=== PATIENT | male | born 1935 | race Hispanic/Latino ===

== ENCOUNTER 2019-11-13 05:29 | Inpatient (IN) | payer OTHER ==
[2019-11-13] MEDS ORDERED: NA CHLORIDE 0.9% 2,000 ML ONE (05:47)
[2019-11-13 05:56] LABS: Arterial Blood Carboxyhemoglob 1.5 % (0-1.5); Blood Gas Oxyhemoglobin 75.1 % (94-97); Blood O2 Saturation 76.9 % (92-98.5)
[2019-11-13 06:01] LABS: Absolute Lymphocytes (CBC) 1.4 K/uL (0.7-4.9); Basophils % 0.4 % (0-1.3); Hematocrit 32.9 % (39.6-49.0); Lymphocytes % 10.4 % (15.3-44.8); MPV 8.8 fL (7.6-11.3); RBC Red Blood Cell Count 4.02 M/uL (4.33-5.43)
[2019-11-13 06:04] LABS: Protime INR 2.31
[2019-11-13] MEDS ORDERED: PIPERACIL/TAZO 4.5 GM VIAL IV ONE (06:15)
[2019-11-13] MEDS ORDERED: CIPROFLOXACIN 400mg IV 400 MG/200 ML BAG IV ONE (06:16)
[2019-11-13] MEDS ORDERED: NA CHLORIDE 0.9% 100 ML IV ONE (06:16)
[2019-11-13] MEDS ORDERED: dilTIAZem HCL 25 MG/5 ML VIAL IV ONE (06:16)
[2019-11-13 06:26] LABS: ALT/SGPT 20 U/L (12-78); AST/SGOT 23 U/L (15-37); Albumin 2.9 g/dL (3.4-5.0); Alkaline Phosphatase 147 U/L (45-117); BUN Blood Urea Nitrogen 77 mg/dL (7-18); Bicarbonate 21 mmol/L (21-32); Bilirubin Direct 0.2 mg/dL (0-0.2); Bilirubin Total 0.5 mg/dL (0.2-1.0); CKMB Creatine Kinase MB 2.3 ng/mL (0.3-3.6); Creatine Phosphokinase 166 U/L (39-308); Glucose Level 111 mg/dL (74-106); Magnesium 2.6 mg/dL (1.8-2.4); NT PRO-BNP 14088 pg/mL (<450); Potassium 4.5 mmol/L (3.5-5.1); Sodium Level 139 mmol/L (136-145); Troponin (Emerg Dept Use Only) < 0.02 ng/mL (0.0-0.045)
--- NOTE | 2019-11-13 06:44 | EDPHYS ---
Physician Documentation [facility] Name: Derek Ybarra Age: 83 yrs Sex: Male : 1935 Arrival Date: 11/13/2019 Time: 05:32 Bed 6 Private MD: ED Physician Gordy Spence HPI: 11/13 07:16 This 83 yrs old Male presents to ER via EMS with unknown complaint. tw4 07:16 The patient has shortness of breath at rest. Onset: The symptoms/episode began/occurred tw4 yesterday. Duration: The symptoms are continuous. Associated signs and symptoms: The patient has no apparent associated signs or symptoms. Unable to obtain HPI due to baseline dementia. Historical: - Allergies: 05:44 NKDA; rv - Home Meds: 07:04 Toprol XL 50 mg Oral Tb24 1 tab once daily [Active]; apixaban 5 mg Oral 1 tab 2 times lp1 per day for Cerebrovascular disease [Active]; senna 8.6 mg oral tab twice a day [Active]; aspirin 81 mg Oral TbEC 1 tab once daily [Active]; Lipitor 10 mg Oral tab 1 tab nightly for Hypercholesterolemia [Active]; Namenda 10 mg Oral tab 1 tab daily for Moderate to Severe Alzheimer's Type Dementia [Active]; Vimpat 150 mg oral tab 1 tab 2 times per day [Active]; acetaminophen-codeine 300-30 mg Oral tab 1 tab every 8 hours for Pain [Active]; multivitamin Oral tab daily [Active]; loperamide 2 mg Oral tab for Diarrhea [Active]; - PMHx: 05:44 Atrial Fib; CVA; Dementia; hemiplegia; Hyperlipidemia; Seizures; rv - PSHx: 05:44 Unable to obtain; rv - Immunization history:: Adult Immunizations up to date. - Social history:: Smoking status: unknown. - Ebola Screening: : No symptoms or risks identified at this time. ROS: 07:16 Constitutional: Negative for fever, chills, and weight loss, Eyes: Negative for injury, tw4 pain, redness, and discharge, Cardiovascular: Negative for chest pain, palpitations, and edema, Back: Negative for injury and pain, MS/Extremity: Negative for injury and deformity, Skin: Negative for injury, rash, and discoloration, Neuro: Negative for headache, weakness, numbness, tingling, and seizure. 07:16 Respiratory: Positive for cough, dyspnea on exertion, shortness of breath. Exam: 07:16 Constitutional: This is a well developed, well nourished patient who is awake, alert, tw4 and in no acute distress. Head/Face: Normocephalic, atraumatic. Chest/axilla: Normal chest wall appearance and motion. Nontender with no deformity. No lesions are appreciated. Cardiovascular: Regular rate and rhythm with a normal S1 and S2. No gallops, murmurs, or rubs. Normal PMI, no JVD. No pulse deficits. 07:16 Abdomen/GI: Soft, non-tender, with normal bowel sounds. No distension or tympany. No guarding or rebound. No evidence of tenderness throughout. Back: No spinal tenderness. No costovertebral tenderness. Full range of motion. MS/ Extremity: Pulses equal, no cyanosis. Neurovascular intact. Full, normal range of motion. Neuro: Awake and alert, GCS 15, oriented to person, place, time, and situation. Cranial nerves II-XII grossly intact. Motor strength 5/5 in all extremities. Sensory grossly intact. Cerebellar exam normal. Normal gait. 07:16 Cardiovascular: Rate: tachycardic, actual rate is 130 bpm. 07:16 Respiratory: moderate respiratory distress is noted, Respirations: Breath sounds: rhonchi, that are moderate, are heard diffusely. Vital Signs: 05:34 BP 210 / 109; Pulse 117; Resp 32; Temp 97; Pulse Ox 98% 15 lpm ; Weight 68.04 kg; rv 06:10 BP 170 / 86; Pulse 121; Resp 31; Pulse Ox 94% ; vc 06:26 BP 148 / 80; Pulse 100; Resp 30; Pulse Ox 92% on 50% Venturi mask; rv 07:11 BP 140 / 72; Pulse 93; Resp 24; Pulse Ox 99% on Venturi mask; em MDM: 05:42 Patient medically screened. tw4 07:16 Differential diagnosis: Bronchitis CHF exacerbation, pneumonia, Pneumothorax pulmonary tw4 edema, Pulmonary Embolism reactive airway disease. Antibiotic administration: Data reviewed: vital signs, nurses notes. Data interpreted: physician neonatology: rhythm is atrial fibrillation, Pulse oximetry: Interpretation: hypoxia. Counseling: I had a detailed discussion with the patient and/or guardian regarding: the historical points, exam findings, and any diagnostic results supporting the discharge/admit diagnosis, lab results, radiology results. Physician consultation: Adilene Lagos MD regarding admission, patient's condition, and will see patient in ED. 11/13 05:41 Order name: Basic Metabolic Panel; Complete Time: 06:35 11/13 05:41 Order name: CBC with Diff; Complete Time: 06:20 11/13 05:41 Order name: LFT's; Complete Time: 06:44 11/13 05:41 Order name: Magnesium; Complete Time: 06:44 11/13 05:41 Order name: NT PRO-BNP; Complete Time: 06:44 11/13 05:41 Order name: Troponin (emerg Dept Use Only); Complete Time: 06:44 11/13 05:42 Order name: Blood Culture Adult (2) 11/13 05:42 Order name: Ckmb; Complete Time: 06:44 11/13 05:42 Order name: CPK; Complete Time: 06:44 11/13 05:42 Order name: Lactate; Complete Time: 06:20 11/13 05:42 Order name: Procalcitonin; Complete Time: 06:44 11/13 05:42 Order name: Protime (+inr); Complete Time: 06:20 11/13 05:42 Order name: Ptt, Activated; Complete Time: 06:20 11/13 05:42 Order name: Urine Microscopic Only 11/13 05:42 Order name: ABG; Complete Time: 06:20 11/13 06:25 Order name: Glucose, Ancillary Testing; Complete Time: 06:44 EDMS 11/13 07:16 Order name: Urinalysis EDMS 11/13 07:16 Order name: CBC with Automated Diff EDMS 11/13 07:16 Order name: CBC with Automated Diff EDMS 11/13 07:16 Order name: Hemoglobin EDMS 11/13 07:16 Order name: Hemoglobin EDMS 11/13 07:16 Order name: Hemoglobin EDMS 11/13 07:16 Order name: Hemoglobin EDMS 11/13 07:16 Order name: Magnesium EDMS 11/13 07:16 Order name: Magnesium EDMS 11/13 07:17 Order name: Protime (+INR) EDMS 11/13 07:17 Order name: Protime (+INR) EDMS 11/13 07:17 Order name: Thyroid Stimulating Hormone EDMS 11/13 07:17 Order name: Thyroid Stimulating Hormone EDMS 11/13 05:41 Order name: XRAY Chest (1 view); Complete Time: 08:08 11/13 05:41 Order name: EKG; Complete Time: 05:42 11/13 05:41 Order name: Cardiac monitoring; Complete Time: 05:51 11/13 05:41 Order name: EKG - Nurse/Tech; Complete Time: 05:51 11/13 05:41 Order name: IV Saline Lock; Complete Time: 05:51 11/13 05:41 Order name: Labs collected and sent; Complete Time: 05:51 11/13 05:41 Order name: O2 Per Protocol; Complete Time: 05:51 11/13 05:41 Order name: O2 Sat Monitoring; Complete Time: 05:55 11/13 05:42 Order name: Accucheck; Complete Time: 05:50 11/13 05:42 Order name: IV Saline Lock - Large Bore; Complete Time: 05:51 11/13 05:42 Order name: Labs collected and sent; Complete Time: 05:51 11/13 05:42 Order name: O2 Per Protocol; Complete Time: 05:51 11/13 07:16 Order name: CONS Pharmacy Consult EDMS 11/13 07:16 Order name: CONS Physician Consult EDMS 11/13 07:16 Order name: NPO EDMS 11/13 07:16 Order name: EKG Electrocardiogram EDMS 11/13 07:16 Order name: EKG Electrocardiogram EDMS 11/13 07:16 Order name: EKG Electrocardiogram EDMS 11/13 07:16 Order name: EKG Electrocardiogram EDMS 11/13 07:16 Order name: EKG Electrocardiogram EDMS 11/13 07:16 Order name: EKG Electrocardiogram EDMS 11/13 07:16 Order name: EKG Electrocardiogram EDMS 11/13 07:16 Order name: EKG Electrocardiogram EDMS 11/13 07:16 Order name: EKG Electrocardiogram EDMS 11/13 07:16 Order name: EKG Electrocardiogram EDMS 11/13 07:16 Order name: EKG Electrocardiogram [facility] 11/13 08:50 Order name: CT [facility] 11/13 05:42 Order name: O2 Sat Monitoring; Complete Time: 05:51 tw4 EC:10 Rate is 125 beats/min. Rhythm is irregularly irregular, A fib. QRS [place] is Normal. VA tw4 interval is normal. QRS interval is normal. QT interval is normal. No Q waves. T waves are Normal. ST Segment is depressed in leads V4, V5, V6, <1mm. Clinical impression: Atrial Fibrillation. Interpreted by me. Reviewed by me. Administered Medications: 05:51 Drug: NS 0.9% (30 ml/kg) 30 ml/kg Route: IV; Rate: bolus; Site: right antecubital; aa1 06:20 Drug: Cardizem 10 mg Route: IVP; Site: right antecubital; rv 06:23 Drug: Zosyn 4.5 grams Route: IVPB; Infused Over: 60 mins; Site: right antecubital; rv 07:06 Follow up: IV Status: Completed infusion rv 07:06 Drug: Cipro 400 mg Volume: 200 ml; Route: IVPB; Infused Over: 60 mins; Site: right rv antecubital; 08:07 Follow up: Response: No adverse reaction; IV Status: Completed infusion; IV Intake: em 200ml 08:32 Drug: ProTONIX 8 mg/hr Route: IV; Rate: 25 ml/hr; Site: right antecubital; em Disposition: 07:19 Critical Care:. tw4 Disposition: 11/13/19 06:43 Hospitalization ordered by Adielne Lagos for Inpatient Admission. Preliminary diagnosis are Pneumonia due to other specified infectious organisms, Hypoxemia, Acute kidney failure, unspecified. - Bed requested for Intensive Care Unit. - Status is Inpatient Admission. hb - Condition is Stable. - Problem is new. - Symptoms are unchanged. UTI on Admission? No Critical care time excluding procedures: 07:19 Critical care time: Bedside Care: 35 minutes, Consultation: 5 minutes. Total time: 40 tw4 minutes Signatures: Dispatcher [employer] [facility] Briana Gomez RN RN aa1 Jose Maria Deal RN RN em Stephanie Hebert RN RN lp1 Kyara White RN RN Wade López RN RN ja1 Gordy Spence MD MD tw4 Owen Bell, RN RN rv Corrections: (The following items were deleted from the chart) 05:54 05:42 PROTIME (+INR)+[id number].BRZ ordered. [facility] EDMS 07:54 06:43 Hospitalization Ordered by Adilene Lagos MD for Inpatient Admission. Preliminary ja1 diagnosis is Pneumonia due to other specified infectious organisms; Hypoxemia; Acute kidney failure, unspecified. Bed requested for Intensive Care Unit. Status is Inpatient Admission. Condition is Stable. Problem is new. Symptoms are unchanged. UTI on Admission? No. tw4 09:11 07:54 11/13/2019 06:43 Hospitalization Ordered by Adilene Lagos MD for Inpatient hb Admission. Preliminary diagnosis is Pneumonia due to other specified infectious organisms; Hypoxemia; Acute kidney failure, unspecified. Bed requested for Intensive Care Unit. Status is Inpatient Admission. Condition is Stable. Problem is new. Symptoms are unchanged. UTI on Admission? No. ja1
--- NOTE | 2019-11-13 06:44 | ER ---
Nurse's Notes [facility] Name: Derek Ybarra Age: 83 yrs Sex: Male : 1935 Arrival Date: 11/13/2019 Time: 05:32 Bed 6 Private MD: Diagnosis: Pneumonia due to other specified infectious organisms;Hypoxemia;Acute kidney failure, unspecified Presentation: 11/13 05:32 Presenting complaint: EMS states: MERCED IS A RESIDENT IN [place]. HE VOMITED rv SOMEWHERE IN THE MIDDLE OF THE NIGHT. NURSE FOUND COFFEE GROUND STUFF ALL OVER HIM. DENIES ANY HISTORY OF GI BLEEDING. INITIALLY WAS COMPLAINING OF ABDOMINAL PAIN, DENIES ANY PAIN AND NAUSEA OF THE MOMENT. Transition of care: patient was not received from another setting of care. Onset of symptoms was November 13, 2019 at 00:00. Risk Assessment:. Initial Sepsis Screen: Does the patient meet any 2 criteria?. Care prior to arrival: None. 05:32 Method Of Arrival: EMS: [facility] rv 05:32 Acuity: CAMPOS 2 rv 05:50 Risk Assessment: Do you want to hurt yourself or someone else? Patient reports no rv desire to harm self or others. Initial Sepsis Screen: Does the patient have a suspected source of infection? Yes: Productive cough/pneumonia. Initial Sepsis Screen: Does the patient meet any 2 criteria? RR > 20 per min. HR > 90 bpm. Yes. Historical: - Allergies: 05:44 NKDA; rv - Home Meds: 07:04 Toprol XL 50 mg Oral Tb24 1 tab once daily [Active]; apixaban 5 mg Oral 1 tab 2 times lp1 per day for Cerebrovascular disease [Active]; senna 8.6 mg oral tab twice a day [Active]; aspirin 81 mg Oral TbEC 1 tab once daily [Active]; Lipitor 10 mg Oral tab 1 tab nightly for Hypercholesterolemia [Active]; Namenda 10 mg Oral tab 1 tab daily for Moderate to Severe Alzheimer's Type Dementia [Active]; Vimpat 150 mg oral tab 1 tab 2 times per day [Active]; acetaminophen-codeine 300-30 mg Oral tab 1 tab every 8 hours for Pain [Active]; multivitamin Oral tab daily [Active]; loperamide 2 mg Oral tab for Diarrhea [Active]; - PMHx: 05:44 Atrial Fib; CVA; Dementia; hemiplegia; Hyperlipidemia; Seizures; rv - PSHx: 05:44 Unable to obtain; rv - Immunization history:: Adult Immunizations up to date. - Social history:: Smoking status: unknown. - Ebola Screening: : No symptoms or risks identified at this time. Screenin:49 Abuse screen: Denies threats or abuse. Denies injuries from another. Nutritional rv screening: No deficits noted. Tuberculosis screening: No symptoms or risk factors identified. Fall Risk No fall in past 12 months (0 pts). Secondary diagnosis (15 points) impaired mobility, No IV (0 pts). Ambulatory Aid- None/Bed Rest/Nurse Assist (0 pts). Gait- Impaired (20 pts.). Mental Status- Oriented to own ability (0 pts). Total Luciano Fall Scale indicates No Risk (0-24 pts). Assessment: 05:48 General: Appears ill, Behavior is calm, cooperative. Pain: Denies pain. Neuro: Level of rv Consciousness is awake, alert, obeys commands, Oriented to person, place, time, situation. Cardiovascular: Patient's skin is warm and dry. Cardiovascular: Rhythm is sinus tachycardia. Respiratory: Airway is patent Respiratory effort is labored, Breath sounds with crackles bilaterally. GI: Abdomen is round Parent/caregiver reports the patient having vomiting. : No signs and/or symptoms were reported regarding the genitourinary system. Derm: Skin with poor turgor. Musculoskeletal: No signs and/or symptoms reported regarding the musculoskeletal system. 07:10 Reassessment: Patient appears in no apparent distress at this time. Patient and/or em family updated on plan of care and expected duration. Pain level reassessed. Patient is alert, oriented x 3, equal unlabored respirations, skin warm/dry/pink. Patient denies pain at this time. 08:14 Reassessment: Patient appears in no apparent distress at this time. wheeled to CT via em stretcher on venti mask. Vital Signs: 05:34 BP 210 / 109; Pulse 117; Resp 32; Temp 97; Pulse Ox 98% 15 lpm ; Weight 68.04 kg; rv 06:10 BP 170 / 86; Pulse 121; Resp 31; Pulse Ox 94% ; vc 06:26 BP 148 / 80; Pulse 100; Resp 30; Pulse Ox 92% on 50% Venturi mask; rv 07:11 BP 140 / 72; Pulse 93; Resp 24; Pulse Ox 99% on Venturi mask; em ED Course: 05:32 Patient arrived in ED. rv 05:34 Triage completed. rv 05:40 Inserted saline lock: 18 gauge in right antecubital area, using aseptic technique. rv Blood collected. 05:40 First set of blood cultures drawn by me. rv 05:42 Gordy Spence MD is Attending Physician. tw4 05:48 Arm band placed on Patient placed in the treatment room, on a stretcher, Patient rv notified of wait time. 05:50 Patient has correct armband on for positive identification. circle edger on. Pulse rv ox on. NIBP on. 05:54 Owen Bell RN is Primary Nurse. rv 05:54 XRAY Chest (1 view) In Process Unspecified. EDMS 06:41 Adilene Lagos MD is Hospitalizing Provider. tw4 08:21 Inserted saline lock: 24 gauge in left hand, using aseptic technique. em 08:30 EKG done, by technical services coordinator. at1 09:00 No provider procedures requiring assistance completed. em 09:00 Patient admitted, IV remains in place. em Administered Medications: 05:51 Drug: NS 0.9% (30 ml/kg) 30 ml/kg Route: IV; Rate: bolus; Site: right antecubital; aa1 06:20 Drug: Cardizem 10 mg Route: IVP; Site: right antecubital; rv 06:23 Drug: Zosyn 4.5 grams Route: IVPB; Infused Over: 60 mins; Site: right antecubital; rv 07:06 Follow up: IV Status: Completed infusion rv 07:06 Drug: Cipro 400 mg Volume: 200 ml; Route: IVPB; Infused Over: 60 mins; Site: right rv antecubital; 08:07 Follow up: Response: No adverse reaction; IV Status: Completed infusion; IV Intake: em 200ml 08:32 Drug: ProTONIX 8 mg/hr Route: IV; Rate: 25 ml/hr; Site: right antecubital; em Intake: 08:07 IV: 200ml; Total: 200ml. em Outcome: 06:43 Decision to Hospitalize by Provider. tw4 09:00 Admitted to ICU accompanied by nurse, accompanied by tech, via stretcher, room 3, with em oxygen, on monitor, with chart, Report called to DOLORES Sifuentes 09:00 Condition: good em 09:00 Instructed on the need for admit, Demonstrated understanding of instructions. 09:11 Patient left the ED. hb Signatures: Dispatcher [employer] Briana Mccray RN RN aa1 Jose Maria Deal RN RN em Stephanie Hebert RN RN lp1 Alejandra Palma, cardiology associate EKG Tat1 Kyara White RN RN Gordy Spence MD MD tw4 Owen Bell RN RN rv Sandra Combs RN RN vc Corrections: (The following items were deleted from the chart) 06:23 05:32 Acuity: CAMPOS 3 rv rv
[2019-11-13] MEDS ORDERED: ONDANSETRON 4 MG/2 ML VIAL IV PRN (07:14)
[2019-11-13] MEDS ORDERED: ALBUTEROL 2.5 MG/3 ML NEB SOL NEB PRN (07:14)
[2019-11-13] MEDS ORDERED: NA CHLORIDE 0.9% 250 ML IV SCH (07:14)
[2019-11-13] MEDS ORDERED: PANTOPRAZOLE INJ 80 MG in NA CHLORIDE 0.9% 250 ML IV ONE (07:30)
[2019-11-13] MEDS: PANTOPRAZOLE INJ 80 MG in NA CHLORIDE 0.9% 250 ML IV SCH ×2 (07:30→18:45)
--- NOTE | 2019-11-13 07:55 | RAD REPORT ---
EXAM DESCRIPTION: RAD - Chest Single View - 11/13/2019 5:53 am CLINICAL HISTORY: COUGH, vomiting, abdominal pain COMPARISON: Chest Single View dated 05/31/2016; Chest Single View dated 05/31/2016 TECHNIQUE: AP portable chest image was obtained 11/13/2019 5:53 am . FINDINGS: Slightly underinflated. Extensive alveolar opacification present in the mid and lower righ t lung field and in the mid left lung field. Cardiomegaly is similar to comparison. Vasculature is pr ominent. No measurable pleural effusion and no pneumothorax. No acute bone finding. No cavitation in the lung parenchyma. No acute aortic findings suspected. IMPRESSION: Bilateral airspace opacification greater on the right. In the acute clinical setting, bi lateral pneumonia is suspected. This could be an aspiration pneumonia as well given the vomiting hist ory. Noninfectious pulmonary edema from cardiogenic or noncardiogenic etiologies can have this presentatio n as well.
[2019-11-13] MEDS ORDERED: OCTREOTIDE 500 MCG in NA CHLORIDE 0.9% 500 ML IV SCH (08:00)
[2019-11-13] MEDS ORDERED: ALBUTEROL 2.5 MG/3 ML NEB SOL ONE (08:14)
[2019-11-13] MEDS ORDERED: IPRATROPIUM BROM 0.5MG/2.5ML ONE (08:14)
--- NOTE | 2019-11-13 08:20 | P.HP ---
Patient History Date of Service: 11/13/19 Reason for admission: Coffee ground emesis History of Present Illness: Mr. Ybarra is 83-year-old male with atrial fibrillation, CVA, dementia, hemiplegia, hyperlipidemia, seizure who was brought in from nursing facility after he was found to have coffee-ground emesis on his clothing. Patient is unable to provide history due to cognitive impairment and mental status. In the ER, he was found to be in AFib with a rate of 110. His chest x-ray suggestive of aspiration pneumonia and kidney function shows significant worsening. Patient was hypoxic requiring high FiO2 to maintain sats greater than 90%. He has been admitted to ICU for further care. Allergies No Known Drug Allergies Allergy (Verified 04/30/16 06:26) Unknown Home medications list reviewed: Yes Home Medications: Atorvastatin Calcium [Lipitor*] 10 mg PO BEDTIME 04/26/16 Codeine/APAP [Tylenol #3*] 1 tab PO TID PRN 04/26/16 Multivitamin [Multivitamins] 1 tab PO DAILY 04/26/16 Memantine HCl [Namenda] 10 mg PO DAILY #30 tablet 04/27/16 Lacosamide [Vimpat*] 150 mg PO BID 04/30/16 Acetaminophen [Tylenol] 650 mg PO Q4HP PRN 05/17/16 Apixaban [Eliquis] 5 mg PO BID 11/13/19 Aspirin 81 mg PO DAILY 11/13/19 Metoprolol Succinate [Toprol Xl] 50 mg PO DAILY 11/13/19 - Past Medical/Surgical History -: Dementia -: Seizure disorder -: Hypertension -: Atrial fibrillation -: dysphagia -: CVA -: hyperlipidemia -: PVD -: R hip Bipolar arthroplasty - Social History Smoking Status: Unknown if ever smoked Alcohol use: No CD- Drugs: No Caffeine use: No Review of Systems is unable to be obtained Physical Examination - Physical Exam General: Demented, Other (Lethargic) HEENT: Atraumatic, PERRLA, Other (Dark substance in oral and nasal cavity), Sclerae nonicteric Neck: JVD not distended Respiratory: Normal air movement, Diminished, Crackles/rales, Inspiratory wheezes Cardiovascular: Edema (Trace bilateral LE edema), Irregular heart rate/rhythm, Systolic murmur - Studies Laboratory Data (last 24 hrs) 11/13/19 05:41: PT Cancelled, INR Cancelled 11/13/19 05:40: PT 26.4 H, INR 2.31, APTT 30.7 11/13/19 05:40: WBC 13.6 H, Hgb 10.4 L, Hct 32.9 L, Plt Count 338 11/13/19 05:40: Sodium 139, Potassium 4.5, BUN 77 H, Creatinine 4.09 H, Glucose 111 H, Magnesium 2.6 H, Total Bilirubin 0.5, AST 23, ALT 20, Alkaline Phosphatase 147 H Assessment and Plan - Plan Mr. Ybarra is 83-year-old who presented with coffee-ground emesis and aspiration pneumonia. #Suspect upper GI bleed-patient with dark substance in nasal and oral cavity. currently hypertensive, tachycardic and in RVR. Patient was on Eliquis for chronic atrial fibrillation, currently not on skilled nursing medication list. It is unclear when this medication was discontinued. - H and H is stable, will trend. Check FOBT. Place NGT if continues to have emesis. -continue IV Protonix, keep NPO and maintain hemodynamics. -landing gear mechanic consulted. -INR 2.3, coagulopathic. Will transfuse FFP is if any acute bleeding is noted. #Sepsis present on admission secondary to aspiration pneumonia- CT abdomen picked up her right middle and lower lobe large infiltrates. Patient was probably aspirating with food. Met SIRS criteria with leukocytosis and tachycardia. -lactic acid is within normal limits. Procalcitonin is elevated. -IV hydration to maintain MAP > 65; continue broad-spectrum antibiotics. - will consult speech therapist for further evaluation once patient is cleared from GI. # Acute respiratory distress-secondary to significant pneumonia. -patient is requiring non-rebreather to maintain sats greater than 94%. Patient blood gases also significant for hypoxia. -continue supplemental oxygen. Low threshold for BiPAP use only intubation. -consult curtain fitter for assistance. # Acute kidney injury-baseline creatinine of 1.3. Creatinine currently at 4.09. Multi factorial. Probably in ATN. -IV hydration once Saavedra catheter is placed. -minimize nephrotoxins. Pharmacy to renally dose medications. -will trend creatinine. Consult environmental permitting specialist. #Hypertension- avoid long acting meds due to suspected bleeding and sepsis. -IV prn meds. # Metabolic encephalopathy-patient with underlining dementia. Acute infection is likely contributing to encephalopathic state. Patientis also uremic. -treated underlining etiology. Monitor patient closely -will consider CT brain. # Obstructive uropathy-CT abdomen with distended urinary bladder with hydronephrosis. -nursing to insert Saavedra catheter STAT. if unable to place catheter, will call for assistance for suprapubic. -Urology is not available until Sunday. -suspected urinary tract infection. #Chronic atrial fibrillation-on oral anti coagulation given the INR is at 2.3. patient was discharged on Eliquis, picked up recently from a pharmacy. -hold anti coagulation due to suspected GI bleeding. -will resume on rate-controlling medication appropriately. Rate is currently at 110 which is acceptable. # History of seizure disorder-cannot rule out breakthrough seizure. - resume all anti epileptic DVT prophylaxis-SCD Patient will be full code pending family availability. Discharge Plan: [facility] Plan to discharge in: 72 Hours - Advance Directives Does patient have a Living Will: No Does patient have a Durable POA for Healthcare: No Critical Care: Yes
[2019-11-13] MEDS: ALBUTEROL 2.5 MG/3 ML NEB SOL NEB SCH ×3 (08:25→19:45)
[2019-11-13] MEDS: IPRATROPIUM BROM 0.5MG/2.5ML NEB SCH ×3 (08:25→19:45)
--- NOTE | 2019-11-13 08:48 | RAD REPORT ---
EXAM DESCRIPTION: CT - Abdomen Pelvis Wo Contrast - 11/13/2019 8:20 am CLINICAL HISTORY: coffee ground emesis noted. COMPARISON: Chest Single View dated 11/13/2019 TECHNIQUE: Axial [address] imaging of the abdomen and pelvis was performed without IV contrast. No IV contrast was given because of allergy, abnormal renal function, patient refusal or physician re quest. No oral contrast administered. All CT scans are performed using dose optimization technique as appropriate and may include automated exposure control or mA/KV adjustment according to patient size. FINDINGS: Prominent airspace opacification is present in the right lower lobe and minimally in the r ight middle lobe. Air bronchograms are present. No cavitation. Minimal airspace opacities are present in the left lower lobe. No pleural effusion. No pericardial effusion. The liver, spleen and pancreas show no suspicious findings on non-contrast imaging. Gallbladder and b iliary tree are also without suspicious finding. Gallstones can be occult on CT imaging. Bilateral moderate severity hydronephrosis down to the UVJ level. No obstructing or nonobstructing ca lculi. Bilateral perinephric stranding is present. Right kidney is atrophic. No significant renal vas cular calcification pattern seen. No significant adrenal finding. Isodense renal masses and pyelonep hritis cannot be excluded in the absence of IV contrast. Urinary bladder is significantly distended. No bladder wall thickening or mass identified. Prostate gland is not appear abnormally enlarged. No gastric dilatation or gastric wall thickening. A minimal hiatal hernia is present. No duodenum abn ormality. Remainder of the small bowel is normal in diameter. Large amount of stool distends the rect um. There is mild circumferential rectal wall thickening. No gross evidence for a perianal mass. CT i maging is limited in assessing this region. There is overall pelvic floor assessment limitation due t o right hip prosthesis spray artifact. No focal colon mass identified. Appendix is not enlarged. No free air or pneumatosis. No focal inflammatory stranding. No hernia, mass or bulky lymphadenopath y. Disc and bony degenerative changes are present. No acute bone finding. Fem-fem bypass graft is presen t. Patency cannot be assessed. Peripheral aortic calcifications are present. No displaced calcificati ons. Infrarenal aorta dilates to 3.8 cm. No iliac artery aneurysms. IMPRESSION: Large pneumonia in the right lung base. This could be infectious or aspiration pneumonia . Smaller areas of an pneumonia present in the right middle lobe and left lower lobe. No gastric abnormality identifiable on noncontrast imaging. Patient has a large amount of stool distending the rectum. There is circumferential rectal wall thick ening without inflammatory stranding. This is probably chronic. Pelvic floor assessment is limited. Moderate severity bilateral hydronephrosis down to the bladder level with no obstructing calculi. Uri nary bladder is significantly distended. Atrophic right kidney. Renal function cannot be assessed on noncontrast imaging. Full assessment is limited is the absence of IV contrast.
[2019-11-13] MEDS ORDERED: VANCOMYCIN 1 GM in NA CHLORIDE 0.9% 250 ML IVPB ONE (09:00)
[2019-11-13] MEDS ORDERED: Meropenem 1000 MG/VIAL IV SCH (09:00)
[2019-11-13] MEDS: NA CHLORIDE 0.9% 1,000 ML IV SCH ×2 (09:37→22:53)
[2019-11-13] MEDS: Meropenem 500 MG in NA CHLORIDE 0.9% 100 ML IV SCH ×2 (09:38→22:53)
[2019-11-13 11:57] LABS: Urine Appearance TURBID; Urine Bilirubin NEGATIVE (NEG); Urine Blood 3+ (NEG); Urine Color DK YELLOW; Urine Glucose NEGATIVE (NEG); Urine Protein 1+ (NEG); Urine Urobilinogen 0.2 mg/dL (0.2-1.0)
[2019-11-13 12:05] LABS: Urine Bacteria <20 /HPF (NONE SEEN); Urine Culture Reflex Order NOT NEEDED; Urine RBC >50 /HPF (NONE SEEN)
[2019-11-13 12:18] LABS: Urine Protein/Creatinine Ratio 1.23 ratio (<0.15)
--- NOTE | 2019-11-13 13:37 | EKG ---
Test Date: 2019-11-13 Test Time: 08:27:41 Senior Product Designer: PEDRO MEASUREMENT RESULTS: Intervals: Rate: 104 [place]: QRSD: 110 QT: 340 QTc: 447 Left Hand: P: DE: QRS: 29 T: 99 INTERPRETIVE STATEMENTS: Atrial fibrillation with rapid ventricular response Incomplete left bundle branch block Nonspecific ST and T wave abnormality, probably digitalis effect Abnormal ECG Compared to ECG 11/13/2019 05:58:37 ST (T wave) deviation now present Left-axis deviation no longer present Electronically Signed On 11-13-19 13:36:55 DIVISION MERCHANDISE MANAGER by Cosme Ralph
--- NOTE | 2019-11-13 13:38 | EKG ---
Test Date: 2019-11-13 Test Time: 05:58:37 Lifestyle Consultant: DAVE MEASUREMENT RESULTS: Intervals: Rate: 125 [place]: QRSD: 126 QT: 334 QTc: 482 [place]: P: WI: QRS: -55 T: 109 INTERPRETIVE STATEMENTS: Atrial fibrillation with rapid ventricular response Left axis deviation Left bundle branch block Abnormal ECG Compared to ECG 05/31/2016 15:20:57 Left-axis deviation now present ST (T wave) deviation no longer present Possible ischemia no longer present Electronically Signed On 11-13-19 13:37:00 SECURITY CLERK by Cosme Ralph
[2019-11-13] MEDS: LACOSAMIDE 200 MG/20 ML VIAL IV SCH (14:40)
--- NOTE | 2019-11-13 15:14 | CON ---
Date of Consultation: 11/13/2019 Reason For Consultation: Elevated BUN and creatinine, hypertension. History Of Present Illness: All the information has been obtained from the record as the patient has advanced dementia. Patient 83-year-old gentleman with significant past medical history of seizure, hypertension, peripheral vascular disease, AFib, hyperlipidemia, dementia, patient had chronic kidney disease. Reviewing the record back in June 2019, creatinine 1.3, GFR of 53. Patient was in wa s regular state of health. Apparently, during the intermediate round, found to have coffee-grounds e mesis. For that reason, he was sent to the hospital. Upon evaluation in the ER, patient found to mccabe ve AFib with RVR and elevation in BUN and creatinine. For that reason, we have been consulted. Crea tinine was 4, GFR of 14. Primary workup showed that patient on the CT has bilateral hydronephrosis w ith distended bladder. Lab did not show any acidosis. No hyperkalemia. BUN was 77. Patient receiv ed 2 L of boluses. His hemoglobin was 10.4. Reviewing the data from before, his hemoglobin and will tocrit back in July 02.. There is no mention from the intermediate note of any nonsteroid. Again, patient did not receive any contrast. Blood pressure being maintained. No hypotension. Pat ient received diltiazem 2 L of boluses. Apparently, patient has a couple of wet diaper. Past Medical History: 1.Dementia. 2.Seizure. 3.Hypertension. 4.Peripheral vascular disease. 5.AFib. 6.Hyperlipidemia. 7.Chronic kidney disease, baseline creatinine 1.3, GFR of 53 back in June 2019. Social History: Lives in intermediate. The rest none obtainable. Review of Systems: None obtainable. Home Medications: 1.Metoprolol. 2.Eliquis. 3.Multivitamin. 4.Tylenol. 5.Codeine. 6.Atorvastatin. 7.Aspirin. Current medications in the hospital include: 1.Meropenem. 2.Vancomycin. 3.Pantoprazole. 4.Octreotide. 5.IV fluid normal saline at 100 per hour. Surgical History: None obtainable. Family History: None obtainable. Physical Examination: Vital Signs: When I saw the patient, blood pressure of 148/105, pulse 108, AFib. Chest: Decreased entry on the left base, crackles on the right side. Heart: S1, S2. Tachycardic. Abdomen: Soft, distended, dullness on the suprapubic area. Extremities: No edema. Neurologic: Moving 4 extremities. No focal. Laboratory Data: WBC 13.6, H and H 10.4/32.9, platelet 338. Back in June 2019, H and H 11.2/34 . Sodium 139, potassium 4.5, bicarb 21, BUN 77, creatinine 4, calcium 8.3, magnesium 2.6. Back in 2018, creatinine 1.3, GFR of 53, albumin 2.9. BNP 1400. Chest x-ray, infiltration on the r ight side. No congestion. CT hydronephrosis, right-sided pneumonia, possible aspiration. Assessment And Plan: 1.Acute kidney injury, multifactorial, secondary to poor perfusion, acute tubular necrosis, and obst ructive uropathy, hydronephrosis, superimposed with NATALYA inhibitor use. No hyperkalemia. No acidosis . Look to me still on the dry side. I am going to continue current hydration and we will monitor th e patient. The disproportion of BUN and creatinine secondary to the obstruction and the gastrointest inal bleed. 2.Hypertension. Given the acute kidney injury, please avoid NATALYA inhibitor. I will place the patien t on metoprolol. 3.Obstructive uropathy. We will place a Saavedra. We will do bladder scan and we will start the patie nt on Flomax. 4.Gastrointestinal bleed, as by primary. 5.Atrial fibrillation, as by primary. We will send for TSH. 6.Pneumonia, possible aspiration. Agree with vancomycin and meropenem. We will follow up culture. 7.Urinary tract infection. We will follow up lab. Currently, patient already started on antibiotic . Thank you, Dr. Lagos, for allowing us to participate in the care of your patient. MARIAM Voice ID: [id number] Report ID: [id number]
[2019-11-13] MEDS ORDERED: NA CHLORIDE 0.9% 500 ML IV ONE (17:00)
[2019-11-13] MEDS ORDERED: LACOSAMIDE IV SCH (21:00)
[2019-11-13] MEDS ORDERED: NA CHLORIDE 0.9% IV SCH (21:00)
[2019-11-14] MEDS: IPRATROPIUM BROM 0.5MG/2.5ML NEB SCH ×4 (01:00→20:30)
[2019-11-14] MEDS: ALBUTEROL 2.5 MG/3 ML NEB SOL NEB SCH ×4 (01:00→20:30)
[2019-11-14] MEDS: LACOSAMIDE 200 MG/20 ML VIAL IV SCH ×3 (01:45→21:32)
[2019-11-14] MEDS: PANTOPRAZOLE INJ 80 MG in NA CHLORIDE 0.9% 250 ML IV SCH ×2 (01:57→16:50)
[2019-11-14 06:06] LABS: Protime INR 2.19
[2019-11-14 06:15] LABS: Albumin 2.1 g/dL (3.4-5.0); Phosphorus 3.2 mg/dL (2.5-4.9); Potassium 3.7 mmol/L (3.5-5.1); Thyroid Stimulating Hormone 0.227 uIU/mL (0.360-3.740)
[2019-11-14 06:34] LABS: Absolute Lymphocytes (CBC) 0.4 K/uL (0.7-4.9); Basophils % 0.4 % (0-1.3); Hematocrit 24.6 % (39.6-49.0); MPV 8.6 fL (7.6-11.3); RBC Red Blood Cell Count 2.99 M/uL (4.33-5.43)
[2019-11-14] MEDS ORDERED: Levofloxacin 750mg IV 750 MG/150 ML BAG IV SCH (09:00)
[2019-11-14 09:19] LABS: Hematocrit 25.8 % (39.6-49.0)
[2019-11-14] MEDS: Meropenem 500 MG in NA CHLORIDE 0.9% 100 ML IV SCH (10:49)
[2019-11-14] MEDS: D5 0.45 NS 1,000 ML IV SCH (10:50)
--- NOTE | 2019-11-14 11:48 | P.PN ---
Subjective Date of Service: 11/14/19 Chief Complaint: Coffee ground emesis Subjective: Improving Patient seen and examined at bedside. He is more awake, remains disoriented which seems to be his baseline. No acute event overnight Review of Systems is unable to be obtained (Cognitive impairment) Physical Examination - Vital Signs Temperature: 99 F Blood Pressure: 141/70 Pulse: 102 Respirations: 17 Pulse Ox (%): 100 - Physical Exam General: Alert, In no apparent distress HEENT: Atraumatic, PERRLA Neck: Supple, JVD not distended Respiratory: Clear to auscultation bilaterally, Normal air movement Cardiovascular: Regular rate/rhythm, Normal S1 S2 Gastrointestinal: Normal bowel sounds, Soft and benign, No tenderness Musculoskeletal: No tenderness Integumentary: No rashes Neurological: Abnormal speech, Dementia Lymphatics: No axilla or inguinal lymphadenopathy Urinary: Saavedra catheter - Studies Laboratory Tests 11/13/19 11/14/19 11/14/19 05:40 05:18 05:18 WBC 6.2 D RBC 2.99 L D Hgb 7.8 L* Hct 24.6 L D Plt Count 225 D PT 25.1 H INR 2.19 Sodium Potassium Chloride Carbon Dioxide BUN Creatinine Glucose Calcium Albumin Procalcitonin 0.33 TSH 11/14/19 05:18 WBC RBC Hgb Hct Plt Count PT INR Sodium 150 H Potassium 3.7 Chloride 120 H D Carbon Dioxide 20 L BUN 49 H D Creatinine 2.14 H D Glucose 103 Calcium 7.7 L Albumin 2.1 L Procalcitonin TSH 0.227 L Microbiology Data (last 24 hrs): 11/13/19 06:10 Blood - Blood Anaerobic Blood Culture - Final Assessment And Plan - Plan Mr. Ybarra is 83-year-old who presented with coffee-ground emesis and aspiration pneumonia. #Suspeced upper GI bleed-patient with dark substance in nasal and oral cavity, on admission. Patient was on Eliquis for chronic atrial fibrillation, currently not on retirement medication list. It is unclear when this medication was discontinued. - H and H trended down, hemoconcentrated on presentation. FOBT pending. Place NGT if continues to have emesis. -will transfuse if hgb is < 7 -continue IV Protonix and maintain hemodynamics. -DW GI, plan for EGD if any acute bleeding is noted. -INR 2.3->2.1, coagulopathic. Will transfuse FFP is if any acute bleeding is noted. #Sepsis present on admission secondary to aspiration pneumonia- CT abdomen picked up her right middle and lower lobe large infiltrates. Patient was probably aspirating with food. Met SIRS criteria with leukocytosis and tachycardia. UA positive, follow urine and blood culture. -lactic acid is within normal limits. Procalcitonin is elevated. -IV hydration to maintain MAP > 65; continue broad-spectrum antibiotics. -Repeat CXR in a.m - Consult speech therapist for further evaluation # Acute respiratory distress-secondary to significant pneumonia. Hypoxic on presentation, -now improving. -continue supplemental oxygen. -consult building construction inspector for assistance. # Acute kidney injury-baseline creatinine of 1.3.Multi factorial. Probably in ATN. -Now trending down. -minimize nephrotoxins. Pharmacy to renally dose medications. -will trend creatinine. Consulted boiler/chiller technician, appreciate recommenddation. #Hypertension- avoid long acting meds due to suspected bleeding and sepsis. -IV prn meds. # Metabolic encephalopathy-patient with underlining dementia. Acute infection and uremia contributed to encephalopathic state. -treated underlining etiology. Monitor patient closely -will order CT brain. # Obstructive uropathy-CT abdomen with distended urinary bladder with hydronephrosis. -Saavedra catheter inserted. -Urology is not available until Sunday. will need evaluation #Chronic atrial fibrillation-on oral anti coagulation given the INR is at 2.3-> 2.1. patient was discharged on Eliquis, picked up recently from a pharmacy. -hold anti coagulation due to suspected GI bleeding. -will resume on rate-controlling medication appropriately. Rate is currently < 110 which is acceptable. # History of seizure disorder-cannot rule out breakthrough seizure. - resume all anti epileptic #Hypernatremia- change fluids. DVT prophylaxis-SCD Patient will be full code pending family availability. Patient was full code at the [facility]. Discharge Plan: [facility] Plan to discharge in: Greater than 2 days
--- NOTE | 2019-11-14 12:30 | P.PN ---
Subjective Date of Service: 11/14/19 Chief Complaint: Coffee ground emesis Subjective Pt i spoor historian, Hx obtained from chart An 83 Y/o man PMHx of seizure, hypertension, peripheral vascular disease, AFib , hyperlipidemia, dementia, patient had chronic kidney disease. Pt found to have NAVNEET Cr 4.0 on admission with B/l hydronephrosis today Cr improved to 2.0 Sodium 150, agree to change fluid to NS will rept labs tonight and change fluid to D5w if Na still high Will consult urology and start Flomax s Past Medical History: 1. Dementia. 2. Seizure. 3. Hypertension. 4. Peripheral vascular disease. 5. AFib. 6. Hyperlipidemia. 7. Chronic kidney disease, baseline creatinine 1.3, GFR of 53 back in June 2019. Social History: [place]. The rest none obtainable. Review of Systems: None obtainable. Home Medications: 1. Metoprolol. 2. Eliquis. 3. Multivitamin. 4. Tylenol. 5. Codeine. 6. Atorvastatin. 7. Aspirin. Current medications in the hospital include: 1. Meropenem. 2. Vancomycin. 3. Pantoprazole. 4. Octreotide. 5. IV fluid normal saline at 100 per hour. Surgical History: None obtainable. Family History: None obtainable. Physical exam general: Awake and alert, NAD , Neck; Supple, No elevated JVD hear: RRR, normal S1,2 no murmur or rub Chest: CTAB, no rales or wheezes Abdomen: Soft , Nt , Saavedra cath Extremities No Edema A?P NAVNEET on CKD due to obstructive uropathy will start flomax change fluid to 1/2 NS Hypernatremia saline induced will change fluid to 1/2 NS and consider to change to D5w if sodium still high Obstructive uropathy as above Afib currently rate controlled Acidosis mild saline induced PNA cont abx Physical Examination - Vital Signs Temperature: 99 F Blood Pressure: 141/70 Pulse: 102 Respirations: 17 Pulse Ox (%): 100 - Studies Microbiology Data (last 24 hrs): 11/13/19 06:10 Blood - Blood Anaerobic Blood Culture - Final
--- NOTE | 2019-11-14 12:38 | RAD REPORT ---
EXAM DESCRIPTION: CT - Head Brain Wo Cont - 11/14/2019 12:26 pm CLINICAL HISTORY: AMS; speech impediment COMPARISON: Head Brain Wo Cont dated 05/31/2016; Head Brain Wo Cont dated 04/25/2016 TECHNIQUE: All CT scans are performed using dose optimization technique as appropriate and may inclu de automated exposure control or mA/KV adjustment according to patient size. FINDINGS: No intracranial hemorrhage, hydrocephalus or extra-axial fluid collection.Moderate general ized brain atrophy is present with moderate periventricular and deep white matter chronic microvascul ar ischemic changes.Gliosis is present in the left frontal lobe, unchanged in compatible with old inf arct. No midline shift is seen. Fluid is present both mastoid air cells. The calvarium is intact. IMPRESSION: No acute intracranial abnormality. Bilateral mastoid effusions.
[2019-11-14 12:54] LABS: Blood Morphology Comment NOTED (NOT SEEN); Platelet Estimate ADEQ; Urine White Blood Cell Casts OK
[2019-11-14 12:55] LABS: Anisocytosis 1+; Burr Cells 1+
[2019-11-14] MEDS ORDERED: VANCOMYCIN/NS 1 gm 1 GM/250 ML BAG IV SCH (14:00)
--- NOTE | 2019-11-14 14:09 | CON ---
Reason For Consultation: Coffee-grounds emesis. History Of Presenting Illness: The patient is an 83-year-old gentleman with history of dementia, sei zure disorder, hypertension, peripheral vascular disease, atrial fibrillation, dyslipidemia, chronic kidney disease, was found to have some coffee-ground like material on his bed around on his mouth and was transferred to the hospital. In the ER, found to have a large pneumonia due to suspected aspira tion versus community-acquired; however, also found to have AFib with RVR, was admitted to the ICU. GI consultation was requested. Past Medical History: As above. Past Surgical History: Unable to obtain. Social History: Unable to obtain. Review of Systems: Unable to obtain. Home Medications: In the chart does they do include Eliquis. Family History: Unable to obtain. Physical Examination: Vital Signs: Blood pressure 148/105; pulse 108, atrial fibrillation. Patient is afebrile. Respirat ory rate 15. The patient was on BiPAP when I saw him. Laboratory Data: Reviewed. Hemoglobin of 10.3, hematocrit of 32.9, leukocytosis of 13, BUN 77, crea tinine 4. ProBNP 14,000. Imaging Studies: Reviewed. Large pneumonia, large amount of stool distending the rectum, moderate h ydronephrosis. Impression: An 83-year-old gentleman with multiple medical problems, dementia, atrial fibrillation, found to have some coffee-grounds emesis; however, nondiagnosed with atrial fibrillation with rapid v entricular rate, large bilateral pneumonia and acute on top of chronic kidney injury. They does not seem to be any active gastrointestinal bleeding at this point. However, he may have had a recent epi sode. Plan: Continue current management of IV antibiotics, aggressive IV fluids. I would anticipate the h emoglobin drop a little given the fact that he appears to be dehydrated and given his renal status. There is no evidence of overt bleeding at least at this time when I saw the patient on 11/13 at 12 p. m. No evidence of melena. No ongoing hematemesis. We will continue IV Protonix and discontinued th e octreotide. From GI point of view, also diet can be started; however, I did have a discussion with the primary hospitalist. Due to his mentation, they are not going for now. GI will cont inue to follow as needed. Currently, his condition is not stable enough for any endoscopy, which ornelas s not seem to be emergent given the lack of active bleeding. He probably will benefit from elective endoscopy, but we will wait for his pneumonia and cardiac condition to be stabilized. /THUAN Voice ID: [id number] Report ID: [id number]
--- NOTE | 2019-11-14 14:32 | EKG ---
Test Date: 2019-11-14 Test Time: 09:35:12 Software Development Specialist: DAVID MEASUREMENT RESULTS: Intervals: Rate: 103 UT: QRSD: 106 QT: 360 QTc: 471 [place]: P: UT: QRS: 46 T: 93 INTERPRETIVE STATEMENTS: Atrial fibrillation with rapid ventricular response with premature ventricular or aberrantly conducted complexes Incomplete left bundle branch block Nonspecific ST and T wave abnormality, probably digitalis effect Abnormal ECG Compared to ECG 11/13/2019 08:27:41 Ventricular premature complex(es) now present ST (T wave) deviation still present Electronically Signed On 11-14-19 14:30:38 SKIVER MACHINE OPERATOR by Ronnie Vick
[2019-11-14 17:51] LABS: Albumin 2.3 g/dL (3.4-5.0); Bilirubin Total 0.4 mg/dL (0.2-1.0); Potassium 3.2 mmol/L (3.5-5.1); Protein, Total 6.8 g/dL (6.4-8.2)
[2019-11-14] MEDS ORDERED: POTASSIUM CL SA 10 MEQ TAB PO ONE (18:35)
[2019-11-14] MEDS: KCL 20 MEQ/100 mL IVPB 20 MEQ/100 ML BAG IV SCH ×2 (19:32→21:31)
[2019-11-14] MEDS: Meropenem 1,000 MG in NA CHLORIDE 0.9% 100 ML IV SCH (19:33)
[2019-11-14] MEDS: JUVEN PACKET PO SCH (21:00)
[2019-11-14] MEDS ORDERED: TAMSULOSIN 0.4 MG SR CAP PO SCH ×2 (21:00)
--- NOTE | 2019-11-14 21:15 | CON ---
History Of Present Illness: An 83-year-old with history of AFib, CVA, dementia, hemiplegia, hyperlip idemia, and seizure, brought in from a [facility] facility for coffee-grounds emesis. CT scan was done showing severe constipation as well as very distended bladder with bilateral hydronephrosis. Th e right kidney is atrophic; however, both kidneys are hydronephrotic. The patient has a Saavedra cathet er. He is a poor historian, but he does tell me he has problems passing his urine, so he should defi nitely be on some Flomax, possible finasteride also, but now he is going to need a Saavedra catheter for now complicated by a history of dementia, seizure, and CVA. Allergies: NO KNOWN DRUG ALLERGIES. Medications: Reviewed. Home medications are atorvastatin, Tylenol No. 3, multivitamin, Namenda, Vim pat, Eliquis, aspirin, metoprolol. Past Medical History: Dementia, seizure, hypertension, atrial fibrillation, dysphagia, CVA, hyperlip idemia, peripheral vascular disease, right hip arthroplasty. Social History: Smoking status unknown. Alcohol none. Drugs none. Caffeine use none Review of Systems: Unable to obtain. Physical Examination: Vital Signs: Afebrile. Stable. In ICU bed #3. General: Demented. HEENT: Atraumatic, normocephalic. Neck: Supple. Respiratory: Normal air movement. Cardiovascular: S1, S2. Laboratory Data: Reviewed. PT 26, INR 2.3. White count 13.6, hemoglobin 10, hematocrit 32, platele t 338. Electrolytes reviewed. Creatinine was as high as 4.1 on admission. His creatinine is down t o 2.1 with a Saavedra catheter in place. Assessment And Plan: Severe constipation, urinary retention, possible raise of constipation versus s troke versus pain medication versus lack of Flomax. Recommending Saavedra catheter in place for now. S tart Flomax, possible finasteride also. PB/MODL Voice ID: [id number] Report ID: [id number]
[2019-11-15] MEDS: IPRATROPIUM BROM 0.5MG/2.5ML NEB SCH ×2 (02:00→08:00)
[2019-11-15] MEDS: ALBUTEROL 2.5 MG/3 ML NEB SOL NEB SCH ×2 (02:00→08:00)
[2019-11-15] MEDS: PANTOPRAZOLE INJ 80 MG in NA CHLORIDE 0.9% 250 ML IV SCH ×4 (02:38→22:15)
[2019-11-15] MEDS: D5 0.45 NS 1,000 ML IV SCH ×3 (02:42→13:46)
[2019-11-15 05:16] VITALS: BMI 22.6
[2019-11-15 05:19] LABS: Absolute Lymphocytes (CBC) 0.4 K/uL (0.7-4.9); Basophils % 0.4 % (0-1.3); Hematocrit 24.3 % (39.6-49.0); Lymphocytes % 7.6 % (15.3-44.8)
[2019-11-15 05:31] LABS: Albumin 2.1 g/dL (3.4-5.0); Phosphorus 1.8 mg/dL (2.5-4.9); Potassium 3.3 mmol/L (3.5-5.1)
[2019-11-15] MEDS ORDERED: Levofloxacin 750mg IV 750 MG/150 ML BAG IV SCH (08:00)
[2019-11-15] MEDS: JUVEN PACKET PO SCH ×2 (08:58→21:46)
[2019-11-15] MEDS: Meropenem 1,000 MG in NA CHLORIDE 0.9% 100 ML IV SCH (08:58)
[2019-11-15] MEDS: LACOSAMIDE 200 MG/20 ML VIAL IV SCH ×2 (08:59→22:03)
[2019-11-15] MEDS ORDERED: VANCOMYCIN 500 MG in NA CHLORIDE 0.9% 100 ML IVPB SCH (11:00)
--- NOTE | 2019-11-15 11:35 | RAD REPORT ---
EXAM DESCRIPTION: RAD - Chest Single View - 11/15/2019 6:27 am CLINICAL HISTORY: follow up Chest pain. COMPARISON: Chest Single View dated 11/13/2019; Chest Single View dated 05/31/2016; Chest Single View dated 05/31/2016; Chest Single View dated 05/16/2016 FINDINGS: Portable technique limits examination quality. Moderate improvement in bilateral pulmonary opacities noted since the comparative study. The heart is moderately enlarged in size with a tortuous thoracic aorta. No displaced fractures. IMPRESSION: Moderate improvement in lung aeration since comparative study.
[2019-11-15 13:34] LABS: Hematocrit 26.5 % (39.6-49.0)
--- NOTE | 2019-11-15 13:50 | P.PN ---
Subjective Date of Service: 11/15/19 Chief Complaint: Anemia and pneumonia Subjective: Improving (Patient doing well no new complaint poor historian) Review of Systems is unable to be obtained Physical Examination - Vital Signs Temperature: 97.2 F Blood Pressure: 161/77 Pulse: 100 Respirations: 25 Pulse Ox (%): 99 - Physical Exam General: Alert Respiratory: Clear to auscultation bilaterally Cardiovascular: No edema, Regular rate/rhythm Gastrointestinal: Normal bowel sounds, Soft and benign Assessment & Plan - Problems (Diagnosis) (1) Pneumonia Onset Date: 05/01/16 Current Visit: No Status: Acute Plan: Patient's chest x-ray has improved no evidence of active sepsis is white count is normal cultures are all negative/doubt pneumonia Dc all antibiotics continue to monitor patient's renal function is improving Qualifiers: Pneumonia type: due to unspecified organism Laterality: right Lung location: lower lobe of lung Qualified Code(s): J18.9 - Pneumonia, unspecified organism (2) Anemia Current Visit: Yes Status: Acute Plan: Patient is anemic no evidence of active GI bleed hemoglobin stable Qualifiers: Anemia type: unspecified type Qualified Code(s): D64.9 - Anemia, unspecified (3) Atrial fibrillation Onset Date: 04/26/16 Current Visit: No Status: Chronic Plan: Chronic AFib rate controlled Qualifiers: Atrial fibrillation type: longstanding persistent Qualified Code(s): I48.11 - Longstanding persistent atrial fibrillation (4) Hypernatremia Current Visit: Yes Status: Acute Plan: Continue with hypertonic IV fluids patient is poor intake
[2019-11-15] MEDS: ALBUTEROL 2.5 MG/3 ML NEB SOL NEB PRN ×2 (14:35→21:15)
[2019-11-15] MEDS ORDERED: POTASS/SODIUM PHOSPHATE 1 PKT POWD.PACK PO ONE (19:00)
--- NOTE | 2019-11-15 19:37 | PN ---
Date of Progress Note: 11/15/2019 Chief Complaint: Acute kidney injury, hypernatremia. History Of Present Illness: Patient is on IV fluids. IV fluids were adjusted to treat hypernatremia and patient was treated with D5W. Patient is evaluated by urologist for obstructive uropathy. He was started on Flomax for bladder outlet obstruction. Patient was found to have elevated creatinine up to 4.0 on admission and had bilateral hydronephrosis. He has a peripheral vascular disease, dementia, history of seizure, atrial fibrillation, and chronic kidney disease stage 3. Baseline creatinine level 1.3. When lab work was done in June 2019, GFR was 53 and creatinine 1.3. Review of Systems: The patient is awake, follows some commands, but he cannot provide review of systems due to history of dementia. Physical Examination: Lungs: Clear to auscultation bilaterally. Heart: S1, S2. Abdomen: Soft, benign. Extremities: No edema. Impression And Plan: 1. Acute kidney injury, obstructive uropathy. Continue Flomax. Monitor electrolytes closely. Hypernatremia. Sodium is somewhat improving. Sodium level is 149 today. Continue D5W and potassium replacement. Patient was found to have hypophosphatemia, hypokalemia, and replacement was ordered accordingly. 2. There is no evidence of metabolic acidosis. There is hyperchloremia corresponding to hypernatremia. Plan is to advance with hydration with IV fluids accordingly. 3. Acute kidney injury. Renal function has somewhat improved. Patient will continue Flomax and obstructive uropathy bladder outlet obstruction. I spent total 35 min including 25 min to coordinate care plan. PATRICK/THUAN Voice ID: [id number] Report ID: [id number] ELISE
[2019-11-16] MEDS: PANTOPRAZOLE INJ 80 MG in NA CHLORIDE 0.9% 250 ML IV SCH ×2 (04:37→09:54)
[2019-11-16] MEDS: HYDRALAZINE HCL 20 MG/ML VIAL IV PRN (05:27)
[2019-11-16 07:04] LABS: Albumin 2.4 g/dL (3.4-5.0); Phosphorus 2.3 mg/dL (2.5-4.9); Potassium 3.1 mmol/L (3.5-5.1)
[2019-11-16] MEDS: ALBUTEROL 2.5 MG/3 ML NEB SOL NEB PRN ×2 (08:15→13:35)
[2019-11-16] MEDS: JUVEN PACKET PO SCH ×2 (09:55→21:20)
[2019-11-16] MEDS: LACOSAMIDE 200 MG/20 ML VIAL IV SCH ×2 (10:18→21:25)
[2019-11-16] MEDS ORDERED: METOPROLOL XL 50 MG TAB PO SCH (10:57)
--- NOTE | 2019-11-16 10:59 | P.PN ---
Subjective Date of Service: 11/16/19 Chief Complaint: Anemia and pneumonia Subjective: Improving (Patient doing well no new complaints poor historian) Review of Systems is unable to be obtained Physical Examination - Vital Signs Temperature: 97.3 F Blood Pressure: 149/75 Pulse: 91 Respirations: 18 Pulse Ox (%): 94 - Physical Exam General: Alert, Cooperative Respiratory: Clear to auscultation bilaterally Cardiovascular: No edema, Irregular heart rate/rhythm Gastrointestinal: Normal bowel sounds, Soft and benign Assessment & Plan - Problems (Diagnosis) (1) Anemia Current Visit: Yes Status: Acute Plan: No evidence of active GI bleed recheck labs Qualifiers: Anemia type: unspecified type Qualified Code(s): D64.9 - Anemia, unspecified (2) Atrial fibrillation Onset Date: 04/26/16 Current Visit: No Status: Chronic Plan: Chronic AFib rate controlled Qualifiers: Atrial fibrillation type: longstanding persistent Qualified Code(s): I48.11 - Longstanding persistent atrial fibrillation (3) Hypernatremia Current Visit: Yes Status: Acute Plan: Continue with D5 water hypernatremia is declining (4) Hypokalemia Current Visit: Yes Status: Acute Plan: Added scheduled potassium
[2019-11-16 11:40] LABS: Hematocrit 30.1 % (39.6-49.0); MPV 8.1 fL (7.6-11.3); RBC Red Blood Cell Count 3.78 M/uL (4.33-5.43)
[2019-11-16] MEDS: POTASSIUM 25 MEQ EFFERV TAB PO SCH ×2 (12:45→21:20)
[2019-11-16] MEDS: D5W 1,000 ML IV SCH (12:46)
[2019-11-17] MEDS: D5W 1,000 ML IV SCH ×2 (00:14→03:11)
--- NOTE | 2019-11-17 00:20 | PN ---
Date of Progress Note: 11/16/2019 Chief Complaint: Acute kidney injury, hypernatremia, hyperosmolar. The patient is evaluated by urologist for obstructive uropathy. He was started on Flomax for bladder outlet obstruction. Patient was found to have elevated creatinine up to 4.0 on admission and bilate ral hydronephrosis. Patient has history of peripheral vascular disease, dementia, atrial fibrillatio n, chronic kidney disease stage 3. Baseline renal function back in June 2019 showed GFR of 53, creatinine 1.3. Review of Systems: Denies headache, vision changes. Physical Examination: Lungs: Clear to auscultation bilaterally. Heart: S1, S2. Abdomen: Soft, benign. Extremities: No edema. Impression And Plan: Acute kidney injury, obstructive uropathy. Continue Flomax. Monitor electroly samantha closely. Continue hypotonic fluids for hypernatremia. Sodium level is improving. Patient is on D5W for replacement and to control hypernatremia. There is no evidence of metabolic acidosis, but hypochloremia corresponding to hypernatremia. Contin ue IV fluids for hydration. Acute kidney injury. Renal function is somewhat improved over last few days. Continue Flomax for ob structive uropathy. EB/MODL Voice ID: [id number] Report ID: [id number]
[2019-11-17] MEDS: HYDRALAZINE HCL 20 MG/ML VIAL IV PRN (04:53)
[2019-11-17 06:30] LABS: Albumin 2.4 g/dL (3.4-5.0); Phosphorus 2.2 mg/dL (2.5-4.9)
[2019-11-17] MEDS: POTASSIUM 25 MEQ EFFERV TAB PO SCH ×2 (08:19→22:03)
[2019-11-17] MEDS: LACOSAMIDE 200 MG/20 ML VIAL IV SCH (08:20)
[2019-11-17] MEDS: JUVEN PACKET PO SCH ×2 (08:20→22:03)
[2019-11-17] MEDS: METOPROLOL XL 50 MG TAB PO SCH ×2 (09:00→22:01)
[2019-11-17] MEDS ORDERED: ALBUTEROL 2.5 MG/3 ML NEB SOL NEB PRN (11:32)
--- NOTE | 2019-11-17 11:39 | P.PN ---
Subjective Date of Service: 11/17/19 Primary Care Provider: Unknown Chief Complaint: Anemia and pneumonia Subjective: Improving Physical Examination - Vital Signs Temperature: 98.0 F Blood Pressure: 109/58 Pulse: 121 Respirations: 18 Pulse Ox (%): 92 - Physical Exam General: Alert, Cooperative HEENT: Atraumatic Neck: Supple Respiratory: Clear to auscultation bilaterally, Normal air movement Cardiovascular: Irregular heart rate/rhythm (AFib rate around 110-120) Gastrointestinal: No tenderness, No masses, No rebound, No guarding Musculoskeletal: No erythema, No tenderness, No warmth Integumentary: No tenderness/swelling, No erythema, No warmth, No cyanosis Neurological: Normal speech, Normal strength at 5/5 x4 extr, Normal tone, Normal affect - Studies Medications List Reviewed: Yes Assessment & Plan Discharge Plan: [facility] Plan to discharge in: 24 Hours Physician Review Additional Text: Impression: Dypsnea likely volume overload with possible underlying acute on chronic diastolic CHF Atrial fibrillation on chronic anti coagulation therapy Acute on chronic renal disease stage III with hypernatremia and bilateral hydronephrosis Anemia of chronic disease with possible upper GI bleed Hypertension Dementia Plan: Dyspnea likely volume overload with possible underlying acute on chronic diastolic CHF: This appears improved. Case discussed with pulmonology. Antibiotics discontinued yesterday. Will recheck chest x-ray tomorrow. Will continue to wean off oxygen. Discontinue albuterol due to atrial fibrillation. Patient was evaluated for possible upper GI bleed. Eliquis has been discontinued. Aspirin also discontinued. Will continue with SCD. Patient likely not a good candidate for EGD. Maintain hemoglobin. Will discuss with family about plan of care. Likely back to [facility] once medically stable. Atrial fibrillation on chronic anti coagulation therapy: Patient restarted on metoprolol. Eliquis discontinued due to possible upper GI bleed. Will monitor closely. Will check echocardiogram. Acute on chronic renal disease stage III with hypernatremia and bilateral hydronephrosis: Will discuss with nephrology neurology. Urology recommended Saavedra catheter to remain 7-10 days. Discontinue D5W. Anemia of chronic disease with possible upper GI bleed: Patient was given IV transfusion. Hemoglobin stable. Chronic anti coagulation therapy discontinued. Will monitor this closely. GI did not recommend EGD evaluation due to instability of patient. Will readdress with GI about endoscopy at this time since the patient is medically stable. Hypertension: Hypertensive medications adjusted. Dementia: Continue medication Time Spent Managing Pts Care (In Minutes): 55
--- NOTE | 2019-11-17 12:24 | EKG ---
Test Date: 2019-11-17 Test Time: 10:13:59 Film Masker: PEDRO MEASUREMENT RESULTS: Intervals: Rate: 113 OK: QRSD: 100 QT: 358 QTc: 491 [place]: P: OK: QRS: 40 T: 86 INTERPRETIVE STATEMENTS: Atrial fibrillation with rapid ventricular response Nonspecific ST and T wave abnormality, probably digitalis effect Abnormal ECG Compared to ECG 11/14/2019 09:35:12 Ventricular premature complex(es) no longer present Left bundle-branch block no longer present ST (T wave) deviation still present Electronically Signed On 11-17-19 12:24:22 SOLDER TECHNICIAN by Ronnie Vick
[2019-11-17] MEDS: PANTOPRAZOLE 40MG TABLET PO SCH (17:26)
[2019-11-17] MEDS ORDERED: AMOX/K CLAV 500 MG TAB PO SCH (21:00)
[2019-11-17] MEDS ORDERED: APIXABAN 5 MG TABLET PO SCH (21:00)
[2019-11-17] MEDS: ATORVASTATIN 10 MG TAB PO SCH (22:02)
[2019-11-17] MEDS: LACOSAMIDE 50 MG TABLET PO SCH (22:05)
--- NOTE | 2019-11-18 03:34 | PN ---
Chief Complaint: Acute on chronic kidney injury, prerenal azotemia. Patient is responding to IV fluids. Patient was found to have obstructive uropathy and was started on Flomax for bladder outlet obstruction. Primarily, he was found to have elevated creatinine up to 4.0 on admission associated with bilateral hydronephrosis. Patient has underlying chronic kidney disease stage 3. Review of Systems: Denies complaints. Patient has aphasia. Physical Examination: Lungs: Clear to auscultation bilaterally. Heart: S1, S2. ABDOMEN: Soft, benign. Extremities: No edema. Impression And Plan: 1. Acute kidney injury, obstructive uropathy. Continue Flomax. Monitor electrolytes closely. 2. Continue hypotonic fluids for hypernatremia treatment. Sodium level is improving. Patient is on D5W for replacement and to control hypernatremia. 3. There is no evidence of metabolic acidosis. Continue IV fluids for hydration. Acute kidney injury. Flomax was resumed for obstructive uropathy. Avoid nephrotoxic medication. PATRICK/THUAN Voice ID: [id number] Report ID: [id number] [facility]PITALOton[facility]
[2019-11-18 06:36] LABS: Albumin 2.3 g/dL (3.4-5.0); Potassium 3.2 mmol/L (3.5-5.1)
[2019-11-18] MEDS: PANTOPRAZOLE 40MG TABLET PO SCH ×2 (07:30→16:30)
[2019-11-18] MEDS: POTASSIUM 25 MEQ EFFERV TAB PO SCH ×2 (08:57→22:11)
[2019-11-18] MEDS: JUVEN PACKET PO SCH ×2 (08:57→22:11)
[2019-11-18] MEDS: MULTIVIT W/ MINERAL TAB PO SCH (08:57)
[2019-11-18] MEDS: LACOSAMIDE 50 MG TABLET PO SCH ×2 (08:58→22:09)
[2019-11-18] MEDS: METOPROLOL XL 50 MG TAB PO SCH ×2 (08:58→22:10)
[2019-11-18] MEDS: MEMANTINE HCL 10 MG TABLET PO SCH (08:58)
[2019-11-18] MEDS ORDERED: ASPIRIN 81 MG CHEWABLE TABLET PO SCH (09:00)
--- NOTE | 2019-11-18 09:25 | RAD REPORT ---
EXAM DESCRIPTION: RAD - Chest Single View - 11/18/2019 6:59 am CLINICAL HISTORY: pna Chest pain. COMPARISON: Chest Single View dated 11/15/2019; Chest Single View dated 11/13/2019; Chest Single View dated 05/31/2016; Chest Single View dated 05/31/2016 FINDINGS: Portable technique limits examination quality. Mild improvement in right-sided lung infiltrate since 11/15/2019. Mild infiltrate remains present in the right lower lung field. The heart is moderately enlarged. No displaced fractures. IMPRESSION: Mild improvement in lung aeration seen since comparative study.
[2019-11-18] MEDS ORDERED: POTASSIUM CL 40 MEQ in NA CHLORIDE 0.9% 500 ML IV SCH (11:00)
[2019-11-18] MEDS ORDERED: Ringers Lactate 1,000 ML IV ONE (12:35)
[2019-11-18] MEDS ORDERED: NS 0.9% VIAL 10 ML ONE (12:51)
[2019-11-18] MEDS ORDERED: ETOMIDATE 20 MG/10 ML VIAL IV ONE (12:51)
[2019-11-18] MEDS ORDERED: Phenylephrine HCl 10 MG/ML 1 ML VIAL ONE (12:51)
[2019-11-18] MEDS ORDERED: propofoL 200 MG/20 ML VIAL IV ONE (12:51)
--- NOTE | 2019-11-18 14:16 | P.PN ---
Subjective Date of Service: 11/18/19 Primary Care Provider: Unknown Chief Complaint: Anemia and pneumonia Subjective: Improving, Doing well Physical Examination - Vital Signs Temperature: 97.9 F Blood Pressure: 104/59 Pulse: 91 Respirations: 18 Pulse Ox (%): 96 - Physical Exam General: Alert HEENT: Atraumatic Neck: Supple Respiratory: Clear to auscultation bilaterally, Normal air movement Cardiovascular: Irregular heart rate/rhythm (AFib rate controlled) Gastrointestinal: Normal bowel sounds Musculoskeletal: No erythema, No tenderness, No warmth Neurological: Normal speech, Normal strength at 5/5 x4 extr, Normal tone, Normal affect - Studies Microbiology Data (last 24 hrs): 11/13/19 06:10 Blood - Blood Aerobic Blood Culture - Final No growth in 5 days. 11/13/19 06:10 Blood - Blood Anaerobic Blood Culture - Final 11/13/19 05:40 Blood - Blood Aerobic Blood Culture - Final No growth in 5 days. 11/13/19 05:40 Blood - Blood Anaerobic Blood Culture - Final No growth in 5 days. Medications List Reviewed: Yes Assessment & Plan Discharge Plan: Detention Plan to discharge in: 24 Hours Physician Review Additional Text: Impression: Dypsnea likely volume overload with possible underlying acute on chronic diastolic CHF Atrial fibrillation on chronic anti coagulation therapy Acute on chronic renal disease stage III with hypernatremia and bilateral hydronephrosis Anemia of chronic disease with upper GI bleed, EGD showing severe esophagitis and AVM Hypertension Dementia Plan: Dyspnea likely volume overload with possible underlying acute on chronic diastolic CHF: This appears improved. Case discussed with pulmonology. Antibiotics discontinued yesterday as Pulmonary felt this was not related to pneumonia. Patient had EGD today showing severe esophagitis and AVM. This was addressed by GI. No further bleeding noted. Patient will continue with PPI. Will continue with current diet. Anticipate discharge tomorrow to skilled nursing. I will turn the service over to the hospitalist team tomorrow. I will go over the plan of care with him. Atrial fibrillation on chronic anti coagulation therapy: Patient restarted on metoprolol. Eliquis discontinued due to possible upper GI bleed. Will monitor closely. Will check echocardiogram. Patient had evaluation by GI with EGD. Patient had severe esophagitis an AVM. This was treated. Will recommend no further use of chronic anti coagulation therapy due to risk of bleeding. Acute on chronic renal disease stage III with hypernatremia and bilateral hydronephrosis: Will discuss with nephrology neurology. Urology recommended Saavedra catheter to remain 7-10 days. Discontinue D5W. Anemia of chronic disease with upper GI bleed, EGD showing severe esophagitis and AVM: Patient had EGD by GI today. Severe esophagitis and AVM were noted. This was the likely cause of bleeding. No further bleeding noted. AVM was treated. Will continue with PPI. Monitor hemoglobin. Likely recommend no further chronic anti coagulation therapy due to risk of bleeding. Discharge tomorrow back to nursing if stable. Hypertension: Hypertensive medications adjusted. Dementia: Continue medication Time Spent Managing Pts Care (In Minutes): 55
--- NOTE | 2019-11-18 15:55 | EKG ---
Test Date: 2019-11-18 Test Time: 08:24:44 Principal Archaeologist: PEDRO MEASUREMENT RESULTS: Intervals: Rate: 88 GA: QRSD: 106 QT: 424 QTc: 513 [place]: P: GA: QRS: 48 T: 98 INTERPRETIVE STATEMENTS: Atrial fibrillation with premature ventricular or aberrantly conducted complexes Incomplete left bundle branch block Nonspecific ST and T wave abnormality, probably digitalis effect Prolonged QT Abnormal ECG Compared to ECG 11/17/2019 10:13:59 Ventricular premature complex(es) now present Left bundle-branch block now present Prolonged QT interval now present ST (T wave) deviation still present Electronically Signed On 11-18-19 15:51:51 CLINICAL APPLICATION CONSULTANT by Cosme Ralph
[2019-11-18] MEDS: Pantoprazole (granules) 40 MG/BLIST PACKET PO SCH (17:33)
[2019-11-18 21:13] VITALS: O2SAT 97
[2019-11-18] MEDS: ATORVASTATIN 10 MG TAB PO SCH (22:10)
[2019-11-19 06:16] LABS: Absolute Lymphocytes (CBC) 0.7 K/uL (0.7-4.9); Basophils % 0.7 % (0-1.3); Lymphocytes % 9.2 % (15.3-44.8); MPV 8.3 fL (7.6-11.3); RBC Red Blood Cell Count 3.72 M/uL (4.33-5.43)
[2019-11-19 06:30] LABS: Magnesium 1.8 mg/dL (1.8-2.4); Potassium 3.8 mmol/L (3.5-5.1)
[2019-11-19] MEDS ORDERED: MAGNESIUM SULFATE 1 gm IVPB 1 GM/100 ML BAG IV ONE (09:00)
[2019-11-19] MEDS: JUVEN PACKET PO SCH (09:00)
[2019-11-19 09:36] VITALS: BP 133/63; TEMP 97.7
[2019-11-19] MEDS ORDERED: KCL 20 MEQ/100 mL IVPB 20 MEQ/100 ML BAG IV SCH (10:00)
[2019-11-19] MEDS: Pantoprazole (granules) 40 MG/BLIST PACKET PO SCH (10:03)
[2019-11-19] MEDS: MEMANTINE HCL 10 MG TABLET PO SCH (10:03)
[2019-11-19] MEDS: MULTIVIT W/ MINERAL TAB PO SCH (10:04)
[2019-11-19] MEDS: LACOSAMIDE 50 MG TABLET PO SCH (10:04)
[2019-11-19] MEDS: POTASSIUM 25 MEQ EFFERV TAB PO SCH (10:05)
[2019-11-19] MEDS: METOPROLOL XL 50 MG TAB PO SCH (10:08)
--- NOTE | 2019-11-19 10:32 | P.DS ---
Admission Date: 11/13/19 Discharge Date: 11/19/19 Primary Care Provider: Unknown Disposition: TRANSFER TO [facility]ISON Discharge Condition: GOOD Reason for Admission: Anemia and pneumonia Consultations: Asphalt Plant Laborer Creative Writing Teacher Procedures: Upper endoscopy - Problems (1) Upper GI bleed Current Visit: Yes Status: Acute (2) Anemia Current Visit: Yes Status: Acute Qualifiers: Anemia type: unspecified type Qualified Code(s): D64.9 - Anemia, unspecified (3) Hypernatremia Current Visit: Yes Status: Acute (4) Hypokalemia Current Visit: Yes Status: Acute (5) Atrial fibrillation Onset Date: 04/26/16 Current Visit: No Status: Chronic Qualifiers: Atrial fibrillation type: longstanding persistent Qualified Code(s): I48.11 - Longstanding persistent atrial fibrillation (6) Hypertension Onset Date: 04/26/16 Current Visit: No Status: Chronic Qualifiers: Hypertension type: essential hypertension Qualified Code(s): I10 - Essential (primary) hypertension (7) Seizure disorder Onset Date: 04/26/16 Current Visit: No Status: Chronic (8) Pneumonia Onset Date: 05/01/16 Current Visit: No Status: Resolved Qualifiers: Pneumonia type: due to unspecified organism Laterality: right Lung location: lower lobe of lung Qualified Code(s): J18.9 - Pneumonia, unspecified organism Brief History of Present Illness: "Mr. Ybarra is 83-year-old male with atrial fibrillation, CVA, dementia, hemiplegia, hyperlipidemia, seizure who was brought in from nursing facility after he was found to have coffee-ground emesis on his clothing. Patient is unable to provide history due to cognitive impairment and mental status. In the ER, he was found to be in AFib with a rate of 110. His chest x-ray suggestive of aspiration pneumonia and kidney function shows significant worsening. Patient was hypoxic requiring high FiO2 to maintain sats greater than 90%. He has been admitted to ICU for further care". Hospital Course: Initial evaluation for suspected upper gastrointestinal bleed included vital signs and hemoglobin monitoring. Patient was on Eliquis for chronic atrial fibrillation which has been discontinued. He did not require PRBC transfusion as hemoglobin remained greater than 7. Stool occult was positive and patient was evaluated by drafter electronic. He underwent upper endoscopy which showed significant hiatal hernia, esophagitis, gastritis and gastric AVM. Eliquis has been discontinued due to high risk of recurrent GI bleed. He was treated for possible aspiration pneumonia given CT chest findings and elevated procalcitonin. He did improve with IV antibiotics and cultures had no growth. He has been evaluated by speech therapist and appropriate food texture has been recommended. He was severely hypovolemic on presentation, required resuscitation with IV fluids and now euvolemic. Patient was treated for acute on chronic stage III renal disease, due to hypovolemia with bilateral hydronephrosis secondary to outlet obstruction. Saavedra was inserted and creatinine did improve to baseline. He has been recommended for Saavedra catheter to remain for 7-10 days by urologist Patient with history of dementia was continued on his medications. He has improved to baseline a remained stable to discharge back to [facility]. Vital Signs/Physical Exam: Temp Pulse Resp BP Pulse Ox 97.7 F 89 18 133/63 97 11/19/19 08:00 11/19/19 10:08 11/19/19 08:00 11/19/19 10:08 11/19/19 08:00 General: In no apparent distress, Demented HEENT: Atraumatic, PERRLA, EOMI Neck: Supple, JVD not distended Respiratory: Clear to auscultation bilaterally, Diminished Cardiovascular: Regular rate/rhythm, Normal S1 S2 Gastrointestinal: Normal bowel sounds, No tenderness Musculoskeletal: No tenderness Integumentary: No rashes Neurological: Normal speech, Normal tone, Normal affect Lymphatics: No axilla or inguinal lymphadenopathy Urinary: Saavedra catheter Laboratory Data at Discharge: WBC 7.8 K/uL (4.3-10.9) 11/19/19 05:48 Hgb 9.5 g/dL (13.6-17.9) L 11/19/19 05:48 Hct 30.0 % (39.6-49.0) L 11/19/19 05:48 Plt Count 326 K/uL (152-406) 11/19/19 05:48 PT 25.1 SECONDS (9.5-12.5) H 11/14/19 05:18 INR 2.19 11/14/19 05:18 APTT 30.7 SECONDS (24.3-36.9) 11/13/19 05:40 Sodium 142 mmol/L (136-145) 11/19/19 05:48 Potassium 3.8 mmol/L (3.5-5.1) 11/19/19 05:48 BUN 25 mg/dL (7-18) H 11/19/19 05:48 Creatinine 1.22 mg/dL (0.55-1.3) 11/19/19 05:48 Glucose 118 mg/dL (74-106) H 11/19/19 05:48 Phosphorus 3.0 mg/dL (2.5-4.9) 11/18/19 05:38 Magnesium 1.8 mg/dL (1.8-2.4) 11/19/19 05:48 Total Bilirubin 0.4 mg/dL (0.2-1.0) 11/14/19 17:04 AST 18 U/L (15-37) 11/14/19 17:04 ALT 16 U/L (12-78) 11/14/19 17:04 Alkaline Phosphatase 114 U/L (45-117) 11/14/19 17:04 Home Medications: Atorvastatin Calcium [Lipitor*] 10 mg PO BEDTIME 04/26/16 Codeine/APAP [Tylenol #3*] 1 tab PO TID PRN 04/26/16 Multivitamin [Multivitamins] 1 tab PO DAILY 04/26/16 Memantine HCl [Namenda] 10 mg PO DAILY #30 tablet 04/27/16 Lacosamide [Vimpat*] 150 mg PO BID 04/30/16 Acetaminophen [Tylenol] 650 mg PO Q4HP PRN 05/17/16 Aspirin 81 mg PO DAILY 11/13/19 Metoprolol Succinate [Toprol Xl] 50 mg PO DAILY 11/13/19 levoFLOXacin [Levofloxacin] 500 mg PO DAILY #3 tablet 11/19/19 New Medications: levoFLOXacin [Levofloxacin] 500 mg PO DAILY #3 tablet Diet: Regular Activity: Fall precautions Followup: Micheline Mata MD [ACTIVE - CAN ADMIT] - 1 Week Le Bowen MD [ACTIVE - CAN ADMIT] - 1 Week
[2019-11-19] MEDS ORDERED: ENSURE ENLIVE 237 ML CAN PO SCH (21:00)
--- NOTE | 2019-11-19 21:47 | PN ---
Date of Progress Note: 11/19/2019 History: The patient is status post esophagogastroduodenoscopy yesterday, tolerated well. Patient s tarted eating. Physical Examination: Vital Signs: When I saw the patient, blood pressure 133/63, pulse of 89. Chest: Clear to auscultation. Heart: S1, S2. Regular. Abdomen: Soft, nontender. Extremities: No edema. Neurologic: Alert, oriented. Laboratory Data: H and H 9.5 and 30. Sodium 142, potassium 3.8, bicarb 25, BUN 25, creatinine 1.2, calcium 8.5, magnesium 1.8. Current Medications: The patient is on include, multivitamin, metoprolol, magnesium, KCl. Assessment And Plan: 1.Acute kidney injury secondary to obstructive uropathy responding to Flomax, off IV fluid. We will continue to monitor. 2.Hypernatremia, recovered, resolved. 3.Obstructive uropathy. Continue Flomax. 4.Acidosis, resolved. Patient cleared from the renal standpoint for discharge planning. MARIAM Voice ID: [id number] Report ID: [id number]
--- NOTE | 2019-11-19 21:59 | PN ---
Date of Progress Note: 11/18/2019 History: The patient was admitted with acute kidney injury, poor perfusion ATN, obstructive uropathy . After placing a Saavedra, kidney function started to improve. Patient is status post EGD today. Physical Examination: Vital Signs: Blood pressure of 125/58, pulse of 94. Chest: Clear to auscultation. Heart: S1, S2, regular. Abdomen: Soft, nontender. Extremities: No edema. Laboratory Data: Sodium 140, potassium 3.2, bicarb 25, BUN 29, creatinine 1.3, phosphorus 3, calcium 8.0, H and H 9.6 and 30.1. Current Medications: The patient is on include, 1.Metoprolol. 2.Atorvastatin. 3.Multivitamin. 4.KCl. 5.Pantoprazole. Assessment And Plan: 1.Acute kidney injury, multifactorial, secondary to prerenal/obstructive uropathy, recovered, resolv ed. Plateau currently. Discontinue IV fluid. 2.Hypernatremia secondary to failure, recovered, resolved. Patient is going to start eating. I karime l discontinue IV fluid. 3.Hypokalemia. We will supplement. 4.Hypertension, controlled, optimal. Continue current medication. 5.Obstructive uropathy status post Saavedra. We will continue to follow up with Urology. Continue Flomax. 6.Deconditioning. Continue PT, OT. SHABANA/THUAN Voice ID: [id number] Report ID: [id number]
--- NOTE | 2019-11-20 02:48 | OP ---
Surgeon: Rickey Galindo MD Procedure Performed: Esophagogastroduodenoscopy. Indication For Procedure: Upper GI bleed. Plan For Anesthesia: Monitored anesthesia care. Complexity: High due to patient's comorbidities. Technique: After obtaining informed consent from the patient, explaining risks and complications [facility] include, but are not limited to bleeding, infection, perforation, and anesthesia complication, pat ient was placed in the left lateral position. Sedation was given. The scope was subsequently advanc ed to the mouth and carefully guided up until the second portion of the duodenum. After the completi on of examination, scope and equipment were withdrawn and procedure terminated in a safe manner. Findings: Esophagus: There was evidence of LA grade C esophagitis. There appeared to be ulceration in the distal esophagus, which was healing likely due to high-dose PPI that has been given to the pa tient. Biopsies were taken from this region. A small hiatal hernia was also visualized in the stoma ch, mild patchy erythema seen. Antral and body biopsies taken. Also seen was a tiny AVM. This like ly was not the source of bleeding, but to prevent any further chance of bleeding, this was ablated wi th APC. Duodenum, the bulb and second portion appeared normal. Complications: None. Tolerance To Anesthesia: Excellent. 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 Plan: 1.Await pathology results. 2.Oral, can switch to oral PPI twice a day. 3.Will need EGD in 6-8 weeks for followup. Restart on regular diet. US/MODL Voice ID: [id number] Report ID: [id number]
== END 2019-11-19 14:26 | DRG 871 ==
LOC: ER 05:29 → ERHOLD 07:14 → 3RD-ICU 08:53 → 2ND 11-15 17:15
PROVIDERS: ADMIT Internal Medicine; ATTEND Hospitalist
PROC: 0DB78ZX Excision of Stomach, Pylorus, Via Natural or Artificial Opening Endoscopic, Diagnostic (ICD-10-PCS; 2019-11-18)
PROC: 0DB68ZX Excision of Stomach, Via Natural or Artificial Opening Endoscopic, Diagnostic (ICD-10-PCS; 2019-11-18)
PROC: 0DB58ZX Excision of Esophagus, Via Natural or Artificial Opening Endoscopic, Diagnostic (ICD-10-PCS; principal; 2019-11-18 09:30)
DX: A41.9 Sepsis, unspecified organism (principal); J69.0 Pneumonitis due to inhalation of food and vomit; G93.41 Metabolic encephalopathy; N17.0 Acute kidney failure with tubular necrosis; I50.33 Acute on chronic diastolic (congestive) heart failure; I48.20 Chronic atrial fibrillation, unspecified; N13.30 Unspecified hydronephrosis; N39.0 Urinary tract infection, site not specified; I13.0 Hypertensive heart and chronic kidney disease with heart failure and stage 1 through stage 4 chronic kidney disease, or unspecified chronic kidney disease; I69.959 Hemiplegia and hemiparesis following unspecified cerebrovascular disease affecting unspecified side; E87.0 Hyperosmolality and hypernatremia; N18.3 Chronic kidney disease, stage 3 (moderate); E78.5 Hyperlipidemia, unspecified; G40.909 Epilepsy, unspecified, not intractable, without status epilepticus; K59.00 Constipation, unspecified; E83.39 Other disorders of phosphorus metabolism; E87.6 Hypokalemia; F03.90 Unspecified dementia, unspecified severity, without behavioral disturbance, psychotic disturbance, mood disturbance, and anxiety; K20.9 Esophagitis, unspecified; K22.8 Other specified diseases of esophagus; Q27.33 Arteriovenous malformation of digestive system vessel; Z79.01 Long term (current) use of anticoagulants
CPT/HCPCS: 36415; 70450; 71045; 74176; 80048; 80053; 80069; 80076; 80202; 81001; 82274; 82550; 82553; 82570; 82805; 82947; 83605; 83735; 83880; 84145; 84156; 84443; 84484; 85014; 85018; 85025; 85027; 85610; 85730; 86850; 86900; 86901; 87040; 87086; 87088; 88305; 88312; 92526; 92610; 93005; 94640; 94660; 94760; 96365; 96367; 96375; 97161; 97165; 99285; C9113; C9254; J0360; J0744; J2354; J2370; J2704; J3370; J3475; J7030; J7040; J7120; J7799

== ENCOUNTER 2019-12-18 20:56 | Emergency (ER) | payer OTHER ==
[2019-12-18] MEDS ORDERED: TETANUS & DIPHTHERIA TOX,ADULT 0.5 ML VIAL ONE (21:27)
[2019-12-18] MEDS ORDERED: LIDOCAINE 1% MPF 5 ML VIAL ONE (21:39)
--- NOTE | 2019-12-18 22:59 | EDPHYS ---
Physician Documentation [facility] Name: Derek Ybarra Age: 84 yrs Sex: Male : 1935 Arrival Date: 12/18/2019 Time: 20:58 Bed 2 Private MD: ED Physician Chico Lobo HPI: 12/18 22:51 This 84 yrs old Male presents to ER via EMS with complaints of Laceration To pkl Forehead. 22:52 Details of fall: The patient fell from seated position, out of a chair. Onset: The pkl symptoms/episode began/occurred just prior to arrival. Associated injuries: The patient sustained injury to the head, contusion, laceration, 2.5 cm(s), of the left forehead. Historical: - Allergies: 21:00 NKDA; rr5 - Home Meds: 21:00 acetaminophen-codeine 300-30 mg Oral tab 1 tab every 8 hours for Pain [Active]; rr5 apixaban 5 mg Oral 1 tab 2 times per day for Cerebrovascular disease [Active]; aspirin 81 mg Oral TbEC 1 tab once daily [Active]; Lipitor 10 mg Oral tab 1 tab nightly for Hypercholesterolemia [Active]; loperamide 2 mg Oral tab for diarrhea [Active]; multivitamin Oral tab daily [Active]; Namenda 10 mg Oral tab 1 tab daily for Moderate to Severe Alzheimer's Type Dementia [Active]; senna 8.6 mg Oral tab twice a day [Active]; Toprol XL 50 mg Oral Tb24 1 tab once daily [Active]; Vimpat 150 mg Oral tab 1 tab 2 times per day for Seizures [Active]; - PMHx: 21:00 Atrial Fib; CVA; Dementia; hemiplegia; Hyperlipidemia; Seizures; Alzheimers; UTI; rr5 Hypertension; cognitive communication deficit; - Immunization history:: Adult Immunizations unknown, Last tetanus immunization: unknown. - Social history:: Smoking status: unknown. ROS: 22:52 Eyes: Negative for injury, pain, redness, and discharge. pkl 22:52 ENT: Negative for injury or acute deformity. 22:52 Neck: Negative for injury or acute deformity, stiffness. 22:52 Cardiovascular: Negative for chest pain. 22:52 Respiratory: Negative for cough, shortness of breath. 22:52 Abdomen/GI: Negative for abdominal pain, nausea, vomiting, and diarrhea. 22:52 Back: Negative for acute changes. 22:52 : Negative for urinary symptoms. 22:52 MS/extremity: Negative for acute changes, injury or acute deformity. 22:52 Skin: Positive for of the left forehead. 22:52 Neuro: Negative for altered mental status. Exam: 22:52 Eyes: Pupils equal round and reactive to light, extra-ocular motions intact. Lids and pkl lashes normal. Conjunctiva and sclera are non-icteric and not injected. Cornea within normal limits. Periorbital areas with no swelling, redness, or edema. 22:52 Head/face: Noted is a laceration(s), that is linear, 2.5 cm(s), of the left forehead. 22:52 ENT: Exam is negative for acute changes. 22:52 Neck: Exam negative for nuchal rigidity. 22:52 Chest/axilla: Exam negative for acute changes. 22:52 Cardiovascular: Rate: normal, Rhythm: regular. 22:52 Respiratory: the patient does not display signs of respiratory distress, Respirations: normal, Breath sounds: are clear throughout. 22:52 Abdomen/GI: Exam negative for acute changes. 22:52 Back: Exam negative for acute changes. 22:52 : Exam negative for acute changes. 22:52 Musculoskeletal/extremity: Exam is negative for acute changes. 22:52 Skin: Exam negative for rash. 22:52 Neuro: Orientation: is normal, Mentation: is normal, Cranial nerves: grossly normal, Motor: is normal. Vital Signs: 21:00 BP 149 / 65; Pulse 93; Resp 18; Pulse Ox 99% ; rr5 21:15 BP 146 / 75; Pulse 95; Resp 16; Temp 98; Pulse Ox 99% on R/A; rr5 21:47 BP 122 / 73; Pulse 100; Resp 15; Pulse Ox 98% ; rr5 22:50 BP 154 / 85; Pulse 98; Resp 16; Pulse Ox 99% ; rr5 12/19 00:00 BP 127 / 65; Pulse 75; Resp 17; Pulse Ox 96% on R/A; rr5 00:28 BP 121 / 70; Pulse 79; Resp 16; Temp 98.2; Pulse Ox 99% on R/A; rr5 [place] Coma Score: 12/18 20:30 Eye Response: spontaneous(4). Verbal Response: confused(4). Motor Response: obeys rr5 commands(6). Total: 14. 12/19 00:28 Eye Response: spontaneous(4). Verbal Response: confused(4). Motor Response: obeys rr5 commands(6). Total: 14. 00:28 with alzheimers and dementia rr5 Trauma Score (Adult): 12/18 20:30 Eye Response: spontaneous(1); Verbal Response: confused(1); Motor Response: obeys rr5 commands(2); Systolic BP: > 89 mm Hg(4); Respiratory Rate: 10 to 29 per min(4); Azalia Score: 14; Trauma Score: 12; alzheimers and dementia 12/19 00:28 Eye Response: spontaneous(1); Verbal Response: confused(1); Motor Response: obeys rr5 commands(2); Systolic BP: > 89 mm Hg(4); Respiratory Rate: 10 to 29 per min(4); Azalia Score: 14; Trauma Score: 12 Laceration: 12/18 22:52 Wound Repair of 2.5cm ( 1.0in ) subcutaneous laceration to left forehead. Minimal pkl bleeding noted.. Distal neuro/vascular/tendon intact. Anesthesia: Local anesthetic administered with 3 mls of 1% lidocaine. Wound prep: Extensive cleansing by me. Skin closed with 4 5-0 Prolene using simple sutures and sterile technique. Dressed with Neosporin, bandaid. Patient tolerated well. MDM: 21:06 Patient medically screened. pkl 22:52 Data reviewed: vital signs, nurses notes, radiologic studies, CT scan. pk 12/18 21:08 Order name: CT Head Brain wo Cont pkl 12/18 22:52 Order name: Prolene, Sutures; Complete Time: 22:52 5 12/18 22:52 Order name: Dressing - Wound; Complete Time: 22:52 5 12/18 22:52 Order name: Gloves, Sterile; Complete Time: 22:52 rr5 12/18 22:52 Order name: Setup Suture Tray; Complete Time: 22:52 rr5 Administered Medications: 21:35 Drug: Tetanus-Diphtheria Toxoid Adult 0.5 ml {Mobile Security Specialist: mmCHANNEL. Exp: rr5 03/27/2021. Lot #: [id number]. } Route: IM; Site: right deltoid; 22:52 Follow up: Response: No adverse reaction rr5 22:45 Drug: Lidocaine (1 %) 5 ml {Note: given by dr. lobo.} Volume: 5 ml; Route: Infiltration; rr5 Disposition: 12/18/19 22:58 Discharged to Home. Impression: Head injury. Laceration left forehead. S/P Fall. - Condition is Stable. - Medication Reconciliation Form, Thank You Letter, Antibiotic Education, Prescription Opioid Use, SBAR form form. - Follow up: Private Physician; When: 1 week; Reason: Staple/Suture removal, Re-evaluation by your physician. - Problem is new. - Symptoms have improved. Signatures: Dispatcher [employer] [facility] Chico Lobo MD MD pkl Jt Washington RN RN rr5 Corrections: (The following items were deleted from the chart) 21:14 21:10 Head Brain Wo Cont+CT.RAD.BRZ ordered. [facility] 12/19 00:36 12/18 22:58 12/18/2019 22:58 Discharged to Home. Impression: Head injury. Laceration rr5 left forehead. S/P Fall. Condition is Stable. Forms are Medication Reconciliation Form, Thank You Letter, Antibiotic Education, Prescription Opioid Use. Follow up: Private Physician; When: 1 week; Reason: Staple/Suture removal, Re-evaluation by your physician. Problem is new. Symptoms have improved. pkl
--- NOTE | 2019-12-18 22:59 | ER ---
Nurse's Notes [facility] Name: Derek Ybarra Age: 84 yrs Sex: Male : 1935 Arrival Date: 12/18/2019 Time: 20:58 Bed 2 Private MD: Diagnosis: Head injury. Laceration left forehead. S/P Fall Presentation: 12/18 21:00 Chief complaint: EMS states: patient fell down from wheelchair. sustain lacerated wound rr5 on his left forehead and left eyebrow hit from his eyeglass. negative from blood thinners, LOC? not sure, patient has history of Alzheimer's and dementia. Coronavirus screen: The patient has NOT traveled to [place] in the past 14 days. Proceed with normal triage procedures. Ebola Screen: Patient negative for fever greater than or equal to 101.5 degrees Fahrenheit, and additional compatible Ebola Virus Disease symptoms Patient denies exposure to infectious person. Patient denies travel to an Ebola-affected area in the 21 days before illness onset. Complicating Factors: lacerated wound. Initial Sepsis Screen: Does the patient meet any 2 criteria? No. Patient's initial sepsis screen is negative. Does the patient have a suspected source of infection? No. Patient's initial sepsis screen is negative. Risk Assessment: Do you want to hurt yourself or someone else? Patient reports no desire to harm self or others. 21:00 Method Of Arrival: EMS: [facility] 21:00 Acuity: [facility] 3 [facility] 21:00 [facility] of care: [facility]. [facility] 21:00 Care prior to arrival: None. [facility] 21:00 Mechanism of Injury: Fall out of chair. Trauma event details: Injury occurred in the [address], Injury occurred: [facility]. 21:00 Onset of symptoms was December 18, 2019. [facility] Trauma Activation: Alert Physician: ED Physician; Name: dr. echeverria; Notified At: 20:48; Arrived At: 20:55 Physician: General Surgeon; Name: ; Notified At: 20:48; Arrived At: Physician: Radiology; Name: devin sanchez; Notified At: 20:48; Arrived At: 20:49 Physician: Respiratory; Name: ; Notified At: 20:48; Arrived At: Physician: Lab; Name: ; Notified At: 20:48; Arrived At: Historical: - Allergies: 21:00 NKDA; rr5 - Home Meds: 21:00 acetaminophen-codeine 300-30 mg Oral tab 1 tab every 8 hours for Pain [Active]; rr5 apixaban 5 mg Oral 1 tab 2 times per day for Cerebrovascular disease [Active]; aspirin 81 mg Oral TbEC 1 tab once daily [Active]; Lipitor 10 mg Oral tab 1 tab nightly for Hypercholesterolemia [Active]; loperamide 2 mg Oral tab for diarrhea [Active]; multivitamin Oral tab daily [Active]; Namenda 10 mg Oral tab 1 tab daily for Moderate to Severe Alzheimer's Type Dementia [Active]; senna 8.6 mg Oral tab twice a day [Active]; Toprol XL 50 mg Oral Tb24 1 tab once daily [Active]; Vimpat 150 mg Oral tab 1 tab 2 times per day for Seizures [Active]; - PMHx: 21:00 Atrial Fib; CVA; Dementia; hemiplegia; Hyperlipidemia; Seizures; Alzheimers; UTI; rr5 Hypertension; cognitive communication deficit; - Immunization history:: Adult Immunizations unknown, Last tetanus immunization: unknown. - Social history:: Smoking status: unknown. Screenin:30 Abuse screen: Denies threats or abuse. Denies injuries from another. Nutritional rr5 screening: No deficits noted. Tuberculosis screening: No symptoms or risk factors identified. Fall Risk Fall in past 12 months (25 points). Secondary diagnosis (15 points) Alzheimer's, dementia, impaired mobility, IV access (20 points). Gait- Impaired (20 pts.). Mental Status- Overestimates/Forgets Limitations (15 pts.). Total Luciano Fall Scale indicates High Risk Score (45 or more points). Fall prevention measures have been instituted. Side Rails Up X 2 Placed Close to Nursing Station Frequent Obs/Assessments Occuring Family Present and informed to notify staff if the need to leave the bedside As available patient and family educated on Fall Prevention Program and Strategies. Primary Survey: 20:30 NO uncontrolled hemorrhage observed. A: The patient is alert. Airway: patent, No rr5 supplemental oxygen in use on arrival. Oral cavity: clear, gag reflex present, Trachea midline. 20:30 Breathing/Chest: Respiratory pattern: regular, Respiratory effort: spontaneous, rr5 unlabored, Breath sounds: clear, bilaterally. Chest inspection: symmetrical rise and fall of the chest. Circulation: Heart tones present. Pulses: palpable right radial artery, right dorsalis pedis artery, left radial artery and left dorsalis pedis artery. Skin color: pink, Skin temperature: warm, dry. Disability Alert. Exposure/Environment: All clothing and personal items were removed. Forensic evidence collection is not deemed to be indicated at this time. Items placed in patient belonging bag. There is no evidence of uncontrolled external bleeding. Obvious injury(ies) are noted at this time: lacerated wound on left forehead A warming method has been applied: A warm blanket has been provided to the patient. 21:30 Reassessment Airway Airway Patent Breathing/Chest Respiratory pattern Regular rr5 Respiratory effort Spontaneous Unlabored Breath sounds Clear Chest inspection Symmetrical Circulation Heart tones Present Pulses Palpable Color Grundy Temperature Warm Dry Disability Alert. Secondary Survey: 20:30 HEENT: Head No injury/deformity Face Other lacerated wound left forehead Eyes: Other rr5 redness left eye Ears: clear bilaterally. Nose: clear to bilateral nares. Throat: is clear with gag reflex present. 20:30 Gastrointestinal: No deficits noted. : Saavedra in place. Musculoskeletal: Circulation, rr5 motion, and sensation intact. Capillary refill < 3 seconds. Injury Description: Laceration sustained to forehead. Assessment: 20:35 General: Appears in no apparent distress. comfortable, Behavior is calm, cooperative. rr5 Pain: Denies pain. Unable to use pain scale. Alzheimer's and dementia. 20:35 Neuro: Level of Consciousness is awake, alert, Oriented to none. Cardiovascular: rr5 Capillary refill < 3 seconds Patient's skin is warm and dry. Respiratory: Airway is patent Respiratory effort is even, unlabored, Respiratory pattern is regular, symmetrical. GI: No signs and/or symptoms were reported involving the gastrointestinal system. : Saavedra in place to gravity drainage. EENT: Eyes redness left eye. Derm: Wound noted forehead Wound is lacerated wound left forehead area. Musculoskeletal: Circulation, motion, and sensation intact. Capillary refill < 3 seconds. Injury Description: Laceration sustained to forehead is clean, 2.6 to 7.5 cm long, is bleeding a small amount. 21:35 Reassessment: Patient appears in no apparent distress at this time. Patient and/or rr5 family updated on plan of care and expected duration. Pain level reassessed. awaiting for results. 22:04 Reassessment: zach ( daughter) contact number [phone]. rr5 22:20 Reassessment: [place] nurse called for an update Joseph is the Nurse for pt at [facility]. 23:04 Reassessment: spoke to Joseph BERNAL from [facility] informed patient is for rr5 discharge, to arrange transportation. 12/19 00:10 Reassessment: Patient appears in no apparent distress at this time. awaiting for EMS rr5 transport. 00:26 Reassessment: Patient appears in no apparent distress at this time. Patient and/or rr5 family updated on plan of care and expected duration. Pain level reassessed. report given by tom to [facility]. vital signs taken and recorded. daughter informed for the discharge. Vital Signs: 12/18 21:00 BP 149 / 65; Pulse 93; Resp 18; Pulse Ox 99% ; rr5 21:15 BP 146 / 75; Pulse 95; Resp 16; Temp 98; Pulse Ox 99% on R/A; rr5 21:47 BP 122 / 73; Pulse 100; Resp 15; Pulse Ox 98% ; rr5 22:50 BP 154 / 85; Pulse 98; Resp 16; Pulse Ox 99% ; rr5 12/19 00:00 BP 127 / 65; Pulse 75; Resp 17; Pulse Ox 96% on R/A; rr5 00:28 BP 121 / 70; Pulse 79; Resp 16; Temp 98.2; Pulse Ox 99% on R/A; rr5 Azalia Coma Score: 12/18 20:30 Eye Response: spontaneous(4). Verbal Response: confused(4). Motor Response: obeys rr5 commands(6). Total: 14. 12/19 00:28 Eye Response: spontaneous(4). Verbal Response: confused(4). Motor Response: obeys rr5 commands(6). Total: 14. 00:28 with alzheimers and dementia rr5 Trauma Score (Adult): 12/18 20:30 Eye Response: spontaneous(1); Verbal Response: confused(1); Motor Response: obeys rr5 commands(2); Systolic BP: > 89 mm Hg(4); Respiratory Rate: 10 to 29 per min(4); [place] Score: 14; Trauma Score: 12; alzheimers and dementia 12/19 00:28 Eye Response: spontaneous(1); Verbal Response: confused(1); Motor Response: obeys rr5 commands(2); Systolic BP: > 89 mm Hg(4); Respiratory Rate: 10 to 29 per min(4); Azalia Score: 14; Trauma Score: 12 ED Course: 12/18 20:30 Patient has correct armband on for positive identification. Placed in gown. Bed in low rr5 position. Call light in reach. Pulse ox on. NIBP on. 20:30 Maintain EMS IV. Dressing intact. Good blood return noted. Site clean \T\ dry. Gauge \T\ rr 5 site: G20 right AC. 20:48 Patient maintains SpO2 saturation greater than 95% on room air. rr5 20:50 Thermoregulation: warm blanket given to patient. rr5 20:58 Patient arrived in ED. ds1 20:59 Jt Washington, RN is Primary Nurse. rr5 21:06 Chico Echeverria MD is Attending Physician. pkl 21:06 Triage completed. rr5 21:13 Arm band placed on. rr5 21:21 CT Head Brain wo Cont In Process Unspecified. EDMS 21:30 Wound care: to laceration located on forehead was cleaned with Hibiclens, Patient rr5 tolerated well. 22:50 Assist provider with laceration repair on forehead that was between 2.6 to 7.5 cm using rr5 sutures. Set up tray. Performed by Chico Echeverria MD Dressed with 4X4s, Kerlix, Neosporin, Patient tolerated well. 12/19 00:29 IV discontinued, intact, bleeding controlled, No redness/swelling at site. Pressure rr5 dressing applied. Administered Medications: 12/18 21:35 Drug: Tetanus-Diphtheria Toxoid Adult 0.5 ml {Senior Sales Director: Farseer. Exp: rr5 03/27/2021. Lot #: [id number]. } Route: IM; Site: right deltoid; 22:52 Follow up: Response: No adverse reaction rr5 22:45 Drug: Lidocaine (1 %) 5 ml {Note: given by dr. echeverria.} Volume: 5 ml; Route: Infiltration; rr5 Intake: 22:50 PO: 0ml; Total: 0ml. rr5 Output: 12/19 00:28 Urine: 650ml (Saavedra); Total: 650ml. rr5 Outcome: 12/18 22:58 Discharge ordered by . samanta 12/19 00:28 Patient's length of stay in the Emergency Department was greater than 2 hours. awaiting rr5 for ems transportPatient's length of stay extended due to 00:29 Discharged to senior living. Report called to severo Transfer form completed. Valuables rr5 list done. 00:29 Condition: stable 00:29 Discharge instructions given to EMS, Instructed on discharge instructions, follow up and referral plans. Demonstrated understanding of instructions, follow-up care. 00:36 Patient left the ED. rr5 Signatures: Dispatcher [employer] EDMS Ahmet Worley, RN Chico Menezes MD MD pkl Sanford, Demi ds1 Jt Washington, RN RN rr5 Corrections: (The following items were deleted from the chart) 12/18 21:10 21:00 BP 161 / 141; Pulse 94bpm; Resp 19bpm; Pulse Ox 99%; rr5 rr5 12/19 00:36 00:28 Azalia Score=15, Trauma Score=12, rr5 rr5
[2019-12-19 01:05] VITALS: BP 121/70; TEMP 98.2; O2SAT 99
--- NOTE | 2019-12-22 15:20 | RAD REPORT ---
EXAM DESCRIPTION: CT - Head Brain Wo Cont - 12/19/2019 1:00 am CLINICAL HISTORY: Fall TECHNIQUE: Contiguous axial CT images obtained through the brain without IV contrast. Coronal and sa gittal reformatted images were provided. This exam was performed according to our departmental dose-optimization program, which includes autom ated exposure control, adjustment of the mA and/or kV according to patient size and/or use of iterati ve reconstruction technique. COMPARISON: Correlation is made with report only from study dated 11/14/2019. 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 No focal mass effect. Elaine-white matter differentiation is with in normal limits. No hemorrhage. Ventricles: No ventriculomegaly or midline shift. Extra-axial spaces: No extra-axial collection or hemorrhage. Paranasal sinuses and mastoid air cells: Minimal left frontal and ethmoid and mild right sphenoid sin us mucosal thickening. Bilateral mastoid air cell and middle ear opacification. Vessels: There is atherosclerotic disease of the internal carotid arteries bilaterally and vertebroba silar system. Bones: Smoothly marginated concavity at the left medial orbital wall suggestive of remote trauma. Soft tissues: Unremarkable IMPRESSION: 1. No acute intracranial or extra-axial abnormality. 2. Other findings as above. Electronically signed by: Vanna Velasco MD 12/18/2019 9:37 PM [facility] Due to temporary technical issues with the PACS/Fluency reporting system, reports are being signed by the in house radiologist as a courtesy to ensure prompt reporting. The interpreting radiologist is f ully responsible for the content of the report.
== END 2019-12-19 00:36 | disposition home or self-care (01) ==
LOC: ER 20:56
PROC: 0JQ10ZZ Repair Face Subcutaneous Tissue and Fascia, Open Approach (ICD-10-PCS; principal; 2019-12-19)
DX: S01.81XA Laceration without foreign body of other part of head, initial encounter (principal); W07.XXXA Fall from chair, initial encounter; Y93.9 Activity, unspecified; Y92.9 Unspecified place or not applicable; I10 Essential (primary) hypertension; G40.909 Epilepsy, unspecified, not intractable, without status epilepticus; G30.9 Alzheimer's disease, unspecified; F02.80 Dementia in other diseases classified elsewhere, unspecified severity, without behavioral disturbance, psychotic disturbance, mood disturbance, and anxiety; Z23 Encounter for immunization; Z79.82 Long term (current) use of aspirin
CPT/HCPCS: 70450; 90471; 90714; 99284

== ENCOUNTER 2020-01-05 18:50 | Inpatient (IN) | payer OTHER ==
[2020-01-05 19:27] LABS: Absolute Lymphocytes (CBC) 0.4 K/uL (0.7-4.9); Basophils % 0.6 % (0-1.3); Hematocrit 28.8 % (39.6-49.0); Lymphocytes % 3.5 % (15.3-44.8); MPV 8.4 fL (7.6-11.3); RBC Red Blood Cell Count 3.63 M/uL (4.33-5.43)
--- NOTE | 2020-01-05 19:27 | RAD REPORT ---
EXAM DESCRIPTION: RAD - Chest Single View - 01/05/2020 7:17 pm CLINICAL HISTORY: COUGH Chest pain. COMPARISON: Chest Single View dated 11/18/2019; Chest Single View dated 11/15/2019; Chest Single View dated 11/13/2019; Chest Single View dated 05/31/2016 FINDINGS: Portable technique limits examination quality. Mild interstitial pulmonary edema. Trace left pleural effusion. The heart is moderately enlarged in s ize. No displaced fractures. IMPRESSION: Mild CHF.
[2020-01-05] MEDS ORDERED: NA CHLORIDE 0.9% 1,000 ML ONE ×2 (19:30→21:39)
[2020-01-05] MEDS ORDERED: KETOROLAC 30 MG/ML INJ ONE (19:30)
[2020-01-05] MEDS ORDERED: NA CHLORIDE 0.9% 500 ML ONE (19:31)
[2020-01-05] MEDS ORDERED: PIPER/TAZO/NS 3.375gm 3.375 GM/100 ML BAG ONE (19:32)
[2020-01-05 19:41] LABS: Protime INR 1.35
[2020-01-05 19:55] LABS: ALT/SGPT 31 U/L (12-78); AST/SGOT 46 U/L (15-37); Albumin 2.3 g/dL (3.4-5.0); Alkaline Phosphatase 208 U/L (45-117); Amylase Level 41 U/L (25-115); BUN Blood Urea Nitrogen 51 mg/dL (7-18); Bicarbonate 23 mmol/L (21-32); Bilirubin Direct 0.2 mg/dL (0-0.2); Bilirubin Total 0.4 mg/dL (0.2-1.0); CKMB Creatine Kinase MB < 1.0 ng/mL (0.3-3.6); Creatine Phosphokinase 333 U/L (39-308); Glucose Level 156 mg/dL (74-106); Lipase 138 U/L (73-393); Protein, Total 8.5 g/dL (6.4-8.2); Sodium Level 142 mmol/L (136-145); Troponin (Emerg Dept Use Only) < 0.02 ng/mL (0.0-0.045)
[2020-01-05 20:19] LABS: Blood Morphology Comment NOTED (NOT SEEN); Platelet Estimate INCR; Poikilocytosis 1+; Urine White Blood Cell Casts OK
[2020-01-05 20:32] LABS: Urine Bacteria 20-50 /HPF (NONE SEEN); Urine Culture Reflex Order REFLEXED; Urine Mucus 2+ /HPF (NONE SEEN)
[2020-01-05 20:33] LABS: Urine Blood 1+ (NEG); Urine Glucose NEGATIVE (NEG); Urine Protein 2+ (NEG)
--- NOTE | 2020-01-05 20:59 | ER ---
Nurse's Notes [facility] Name: Derek Ybarra Age: 84 yrs Sex: Male : 1935 Arrival Date: 01/05/2020 Time: 18:53 Bed 6 Private MD: Diagnosis: Severe sepsis;Cystitis, unspecified Presentation: 01/04 18:53 Chief complaint: EMS states: retirement staff reported pt became SOB, SPO2 40% while hb eating pureed dinner. On scene SpO2 80s on RA, improved to 90s on NRB. Coronavirus screen: The patient has NOT traveled to a country currently being monitored by the CDC within the last 14 days. The patient has NOT had contact with any known and/or suspected case of coronavirus. Proceed with normal triage procedures. Ebola Screen: No symptoms or risks identified at this time. 18:53 Method Of Arrival: EMS: [facility] hb 18:59 Initial Sepsis Screen: Does the patient meet any 2 criteria? RR > 20 per min. Temp hb <36.0*C (96.8*F)) or > 38.3*C (100.9*F). HR > 90 bpm. Yes. Risk Assessment: Do you want to hurt yourself or someone else?. 18:59 Acuity: CAMPOS 2 hb 19:00 Transition of care: patient was received from another setting of care (long-term care facility), [facility]. 19:49 Initial Sepsis Screen: Does the patient have a suspected source of infection? Yes: ao Dysuria/Frequency/Urgency/UTI. 19:49 Onset of symptoms is unknown. ao Triage Assessment: 19:49 Respiratory: Reports shortness of breath Onset: The symptoms/episode began/occurred at ao an unknown time. the patient has moderate shortness of breath. Historical: - Allergies: 19:00 NKDA; hb - PMHx: 19:00 Alzheimers; CVA; hemiplegia; Dementia; cognitive communication deficit; Atrial Fib; hb Hyperlipidemia; Hypertension; UTI; Seizures; - Immunization history:: Adult Immunizations up to date. - Social history:: Smoking status: unknown Patient/guardian denies using alcohol, street drugs, The patient lives with family. - Family history:: not pertinent. Screenin:47 Abuse screen: Denies threats or abuse. Denies injuries from another. Nutritional ao screening: Has had N/V for 3 or more days. Tuberculosis screening: No symptoms or risk factors identified. Fall Risk Ambulatory Aid- None/Bed Rest/Nurse Assist (0 pts). Gait- Normal/Bed Rest/Wheelchair (0 pts) Mental Status- Overestimates/Forgets Limitations (15 pts.). Assessment: 18:58 Reassessment: CODE SEPSIS CALLED. hb 19:20 General: Appears uncomfortable, unkempt, Behavior is calm, inappropriate for age, ao listless, uncooperative. Pain: Denies pain. Neuro: Level of Consciousness is awake, Oriented to person, Weakness. Cardiovascular: Capillary refill is sluggish Patient's skin is warm and dry. Rhythm is atrial fibrillation. Respiratory: Airway is patent Respiratory effort is even, unlabored, Respiratory pattern is regular, symmetrical, Breath sounds with crackles bilaterally. GI: No signs and/or symptoms were reported involving the gastrointestinal system. : Straight cath. Urine yellow. EENT: No deficits noted. Derm: Skin is intact, Skin temperature is hot. Musculoskeletal: Circulation, motion, and sensation intact. Range of motion: limited in all extremities. 20:30 Reassessment: Patient appears in no apparent distress at this time. Patient and/or ao family updated on plan of care and expected duration. Pain level reassessed. 21:30 Reassessment: Patient appears in no apparent distress at this time. Patient and/or ao family updated on plan of care and expected duration. Pain level reassessed. 22:22 Reassessment: Patient appears in no apparent distress at this time. Patient and/or ao family updated on plan of care and expected duration. Pain level reassessed. Patient to be admitted to the hospital. 23:05 Reassessment: Report called to DOLORES Nugent. Patient to go to room 429. ao Vital Signs: 18:53 BP 122 / 66; Pulse 135; Resp 24; Temp 104.5; Pulse Ox 97% on R/A; Weight 54.43 kg; Pain hb 0/10; 19:51 BP 116 / 58; Pulse 114; Resp 23; Pulse Ox 100% on R/A; ao 20:30 BP 115 / 58; Pulse 116; Resp 18; Pulse Ox 99% on R/A; ao 21:26 BP 128 / 59; Pulse 119; Resp 20; Temp 98.5(O); Pulse Ox 95% on R/A; Pain 0/10; ao 22:22 BP 108 / 54; Pulse 117; Resp 18; Pulse Ox 98% ; ao ED Course: 18:53 Patient arrived in ED. hb 18:59 Terry Reddy MD is Attending Physician. ma2 18:59 Triage completed. hb 18:59 Arm band placed on. hb 19:19 Chest Single View XRAY In Process Unspecified. EDMS 19:20 Inserted saline lock: 20 gauge in right antecubital area, using aseptic technique. ao Blood collected. 19:30 Inserted saline lock: 20 gauge in left forearm, using aseptic technique. Blood ao collected. 19:42 Shay Barker RN is Primary Nurse. ao 19:48 Allergy band placed. superintendent automotive on. Pulse ox on. NIBP on. ao 20:57 Desiree Luevano MD is Hospitalizing Provider. ma2 23:06 No provider procedures requiring assistance completed. Patient admitted, IV remains in ao place. Administered Medications: 19:30 Drug: NS 0.9% (30 ml/kg) 30 ml/kg Route: IV; Rate: bolus; Site: left forearm; ao 21:38 Follow up: IV Status: Completed infusion; IV Intake: 1600ml ao 19:35 Drug: Zosyn 3.375 grams Route: IVPB; Infused Over: 60 mins; Site: left antecubital; ao 21:37 Follow up: IV Status: Completed infusion; IV Intake: 100ml ao 22:20 Follow up: IV Status: Completed infusion lw1 19:42 Drug: TORadol 30 mg Route: IVP; Site: left forearm; ao 21:37 Follow up: Response: No adverse reaction ao 21:36 Drug: NS 0.9% 1000 ml Route: IV; Rate: 200 ml/hr; Site: left antecubital; ao 22:25 Follow up: IV Status: Infusion continued upon admission ao Intake: 21:37 IV: 100ml; Total: 100ml. ao 21:38 IV: 1600ml; Total: 1700ml. ao Outcome: 20:57 Decision to Hospitalize by Provider. ma2 23:06 Patient left the ED. lw1 23:07 Admitted to Tele accompanied by tech, room 429, Report called to DOLORES Nugent ao 23:07 Condition: stable 23:07 Instructed on the need for admit. Signatures: Dispatcher [employer] Shay Potts RN RN ao Baxter, Heather, RN RN hb Alzahri, Mohammad, MD MD ma2 Mehdi Khoury RN RN lw1
--- NOTE | 2020-01-05 20:59 | EDPHYS ---
Physician Documentation [facility] Name: Derek Ybarra Age: 84 yrs Sex: Male : 1935 Arrival Date: 01/05/2020 Time: 18:53 Bed 6 Private MD: ED Physician Terry Reddy HPI: 01/04 20:56 This 84 yrs old Male presents to ER via EMS with complaints of Shortness Of ma2 Breath. 20:56 The patient has shortness of breath at rest. Onset: The symptoms/episode began/occurred ma2 gradually, 1 day(s) ago. Associated signs and symptoms: Pertinent negatives: non-productive cough, diaphoresis, fever, nausea. Severity of symptoms: At their worst the symptoms were mild in the emergency department the symptoms are unchanged. The patient has not experienced similar symptoms in the past. Historical: - Allergies: 19:00 NKDA; hb - PMHx: 19:00 Alzheimers; CVA; hemiplegia; Dementia; cognitive communication deficit; Atrial Fib; hb Hyperlipidemia; Hypertension; UTI; Seizures; - Immunization history:: Adult Immunizations up to date. - Social history:: Smoking status: unknown Patient/guardian denies using alcohol, street drugs, The patient lives with family. - Family history:: not pertinent. ROS: 20:56 Constitutional: Negative for fever, chills, and weight loss. ma2 20:56 All other systems are negative. 20:56 Unable to obtain ROS due to altered mental status, baseline dementia. ma2 Exam: 20:56 Constitutional: This is a well developed, well nourished patient who is awake, alert, ma2 and in no acute distress. Chest/axilla: Normal chest wall appearance and motion. Nontender with no deformity. No lesions are appreciated. Cardiovascular: Regular rate and rhythm with a normal S1 and S2. No gallops, murmurs, or rubs. Normal PMI, no JVD. No pulse deficits. Respiratory: Lungs have equal breath sounds bilaterally, clear to auscultation and percussion. No rales, rhonchi or wheezes noted. No increased work of breathing, no retractions or nasal flaring. Abdomen/GI: Soft, non-tender, with normal bowel sounds. No distension or tympany. No guarding or rebound. No evidence of tenderness throughout. Vital Signs: 18:53 BP 122 / 66; Pulse 135; Resp 24; Temp 104.5; Pulse Ox 97% on R/A; Weight 54.43 kg; Pain hb 0/10; 19:51 BP 116 / 58; Pulse 114; Resp 23; Pulse Ox 100% on R/A; ao 20:30 BP 115 / 58; Pulse 116; Resp 18; Pulse Ox 99% on R/A; ao 21:26 BP 128 / 59; Pulse 119; Resp 20; Temp 98.5(O); Pulse Ox 95% on R/A; Pain 0/10; ao 22:22 BP 108 / 54; Pulse 117; Resp 18; Pulse Ox 98% ; ao MDM: 20:56 Differential diagnosis: Anemia Bronchitis pneumonia, Sepsis. Data reviewed: vital ny2 signs, nurses notes. Counseling: I had a detailed discussion with the patient and/or guardian regarding: the historical points, exam findings, and any diagnostic results supporting the discharge/admit diagnosis, the presence of at least one elevated blood pressure reading (>120/80) during this emergency department visit, the need for further work-up and treatment in the hospital. 20:57 Patient medically screened. [facility] 01/04 19:01 Order name: Amylase, Serum; Complete Time: 20:40 [facility] 01/04 19:01 Order name: Basic Metabolic Panel; Complete Time: 20:40 [facility] 01/04 19:01 Order name: Blood Culture Adult (2) [facility] 01/04 19:01 Order name: CBC with Diff; Complete Time: 20:40 [facility] 01/04 19:01 Order name: Ckmb; Complete Time: 20:40 [facility] 01/04 19:01 Order name: CPK; Complete Time: 20:40 [facility] 01/04 19:01 Order name: Lactate; Complete Time: 20:40 [facility] 01/04 19:01 Order name: LFT's; Complete Time: 20:40 [facility] 01/04 19:01 Order name: Lipase; Complete Time: 20:40 [facility] 01/04 19:01 Order name: Procalcitonin; Complete Time: 20:40 [facility] 01/04 19:01 Order name: Protime (+inr); Complete Time: 20:40 [facility] 01/04 19:01 Order name: Ptt, Activated; Complete Time: 20:40 ma2 01/04 19:01 Order name: Troponin (emerg Dept Use Only); Complete Time: 20:40 [facility] 01/04 19:01 Order name: Urine Microscopic Only; Complete Time: 20:51 [facility] 01/04 19:01 Order name: Chest Single View XRAY; Complete Time: 20:40 [facility] 01/04 19:32 Order name: Glucose, Ancillary Testing; Complete Time: 20:40 [facility] 01/04 19:34 Order name: CBC Smear Scan; Complete Time: 20:40 [facility] 01/04 19:54 Order name: Urine Dipstick--Ancillary (enter results); Complete Time: 20:51 [facility] 01/04 20:34 Order name: Urine Culture [facility] 01/04 22:15 Order name: CONS Pharmacy Consult [facility] 01/04 22:15 Order name: CONS Physician Consult [facility] 01/04 22:15 Order name: Thyroid Stimulating Hormone [facility] 01/04 22:15 Order name: CBC with Automated Diff [facility] 01/04 22:15 Order name: CBC with Automated Diff [facility] 01/04 22:15 Order name: Comprehensive Metabolic Panel [facility] 01/04 22:15 Order name: Comprehensive Metabolic Panel [facility] 01/04 19:01 Order name: Accucheck; Complete Time: 19:43 [facility] 01/04 19:01 Order name: Cardiac monitoring; Complete Time: 19:20 [facility] 01/04 19:01 Order name: EKG - Nurse/Tech; Complete Time: 19:20 [facility] 01/04 19:01 Order name: IV Saline Lock - Large Bore; Complete Time: 19:43 [facility] 01/04 19:01 Order name: Labs collected and sent; Complete Time: 19:43 [facility] 01/04 19:01 Order name: O2 Per Protocol; Complete Time: 19:43 [facility] 01/04 19:01 Order name: O2 Sat Monitoring; Complete Time: 19:43 [facility] 01/04 19:01 Order name: Urine Dipstick-Ancillary (obtain specimen); Complete Time: 19:43 [facility] 01/04 22:15 Order name: Regular EDMS Administered Medications: 19:30 Drug: NS 0.9% (30 ml/kg) 30 ml/kg Route: IV; Rate: bolus; Site: left forearm; ao 21:38 Follow up: IV Status: Completed infusion; IV Intake: 1600ml ao 19:35 Drug: Zosyn 3.375 grams Route: IVPB; Infused Over: 60 mins; Site: left antecubital; ao 21:37 Follow up: IV Status: Completed infusion; IV Intake: 100ml ao 22:20 Follow up: IV Status: Completed infusion lw1 19:42 Drug: TORadol 30 mg Route: IVP; Site: left forearm; ao 21:37 Follow up: Response: No adverse reaction ao 21:36 Drug: NS 0.9% 1000 ml Route: IV; Rate: 200 ml/hr; Site: left antecubital; ao 22:25 Follow up: IV Status: Infusion continued upon admission ao Disposition: 01/05/20 20:57 Hospitalization ordered by Desiree Luevano for Inpatient Admission. Preliminary diagnosis are Severe sepsis, Cystitis, unspecified. - Bed requested for Telemetry/MedSurg (Inpatient). - Status is Inpatient Admission. lw1 - Condition is Stable. - Problem is new. - Symptoms are unchanged. Signatures: Dispatcher [employer] EDMS Stephanie Hebert RN RN 1 Shay Barker RN RN ao Baxter, Heather, RN RN Terry Reddy MD MD [facility] Mehdi Khoury RN RN lw1 Corrections: (The following items were deleted from the chart) 22:18 20:57 Hospitalization Ordered by Desiree Luevano MD for Inpatient Admission. Preliminary lp1 diagnosis is Severe sepsis; Cystitis, unspecified. Bed requested for Telemetry/MedSurg (Inpatient). Status is Inpatient Admission. Condition is Stable. Problem is new. Symptoms are unchanged. ma2 23:06 22:18 01/05/2020 20:57 Hospitalization Ordered by Desiree Luevano MD for Inpatient lw1 Admission. Preliminary diagnosis is Severe sepsis; Cystitis, unspecified. Bed requested for Telemetry/MedSurg (Inpatient). Status is Inpatient Admission. Condition is Stable. Problem is new. Symptoms are unchanged. lp1
--- NOTE | 2020-01-05 21:58 | P.HP ---
Certification for Inpatient With expected LOS: >2 Midnights Patient will require the following post-hospital care: None Practitioner: I am a practitioner with admitting privileges, knowledge of patient current condition, hospital course, and medical plan of care. Services: Services provided to patient in accordance with Admission requirements found in Title 42 Section 412.3 of the Code of Federal Regulations Patient History Date of Service: 01/05/20 Reason for admission: Low oxygen and fever History of Present Illness: 84-year-old male with past medical history of dementia, hypertension, atrial fibrillation, correction resident was noted to be hypoxic while eating dinner. O2 sat was reportedly low in the 80s. On transfer to the emergency room he was noted with fever of 104. Wall cough shows UTI. Patient was started on sepsis protocol with 3 L fluid loading. He has been started on antibiotics. Patient is very confused and drowsy and unable to give more history. Daughter at bedside helping with history. She reports at baseline patient uses a wheelchair. She reports he has fall 2 weeks ago requiring sutures. History obtained by reviewing of records. Chest x-ray shows evidence of mild CHF with trace left pleural effusion. He continued to have persistent tachycardia with heart rate to the 120s but appeared to be sinus Allergies No Known Drug Allergies Allergy (Verified 04/30/16 06:26) Unknown Home Medications: Atorvastatin Calcium [Lipitor*] 10 mg PO BEDTIME 04/26/16 Codeine/APAP [Tylenol #3*] 1 tab PO TID PRN 04/26/16 Multivitamin [Multivitamins] 1 tab PO DAILY 04/26/16 Memantine HCl [Namenda] 10 mg PO DAILY #30 tablet 04/27/16 Lacosamide [Vimpat*] 150 mg PO BID 04/30/16 Acetaminophen [Tylenol] 650 mg PO Q4HP PRN 05/17/16 Aspirin 81 mg PO DAILY 11/13/19 Metoprolol Succinate [Toprol Xl] 50 mg PO DAILY 11/13/19 levoFLOXacin [Levofloxacin] 500 mg PO DAILY #3 tablet 11/19/19 - Past Medical/Surgical History Past Medical History: Unable to obtain -: Dementia -: Seizure disorder -: Hypertension -: Atrial fibrillation -: dysphagia -: CVA -: hyperlipidemia -: PVD -: R hip Bipolar arthroplasty - Social History Alcohol use: No CD- Drugs: No Caffeine use: No Review of Systems is unable to be obtained Physical Examination - Physical Exam General: Demented, Confused, Other (Thin built elderly male) HEENT: Atraumatic, Normocephalic (healing left eyebrow abrasion) Neck: 2+ carotid pulse no bruit, JVD not distended Respiratory: Normal air movement, Diminished Cardiovascular: Normal pulses, Edema (trace b/l ), Abnormal pulses Gastrointestinal: Normal bowel sounds, Soft and benign, Non-distended Musculoskeletal: No clubbing, No contractures Neurological: Normal gait, Dementia - Studies Laboratory Data (last 24 hrs) 01/05/20 19:15: PT 15.7 H, INR 1.35, APTT 29.2 01/05/20 19:15: WBC 10.2 D, Hgb 9.0 L, Hct 28.8 L, Plt Count 445 H 01/05/20 19:15: Sodium 142, Potassium 4.0, BUN 51 H, Creatinine 1.88 H, Glucose 156 H, Total Bilirubin 0.4, AST 46 H, ALT 31, Alkaline Phosphatase 208 H, Amylase 41, Lipase 138 Imagings Data: Chest x-ray mild interstitial pulmonary edema, trace left pleural effusion Assessment and Plan Discharge Plan: Residential Plan to discharge in: 48 Hours - Advance Directives Does patient have a Living Will: No Does patient have a Durable POA for Healthcare: No - Code Status/Comfort Care Code Status Assessed: Yes Physician Review: Patient Assessed, Agree with Above Assessment and Plan Physician Review Additional Text: # fever-likely due to urosepsis -follow up urine culture. -we start antibiotics with Levaquin and cefepime or zosyn pending culture report -monitor vitals closely -continue gentle IV fluid despite chest x-ray showing CHF given persistent tachycardia -if worsening shortness of breath. Will Dc IV fluids # mild CHF on chest x-ray-will monitor closely -start supplemental O2 if hypoxic -O2 sats stable at 95% now # history of AFib next not on any anticoagulation, will restart metoprolol a BP remained stable # DVT prophylaxis with dose subcutaneous heparin # Advanced directive-discuss with daughter who is second POA -will leave as full code Time Spent Managing Pts Care (In Minutes): 65
[2020-01-05] MEDS ORDERED: ONDANSETRON 4 MG/2 ML VIAL IV PRN (22:03)
[2020-01-05] MEDS ORDERED: MORPHINE 2 MG/ML SYR IV PRN (22:03)
[2020-01-05] MEDS ORDERED: ALBUTEROL 2.5 MG/3 ML NEB SOL NEB PRN (22:03)
[2020-01-05] MEDS ORDERED: guaiFENesin 100 MG/5 ML UCUP PO PRN (22:06)
[2020-01-05] MEDS ORDERED: ZIPRASIDONE MESYLA 20 MG/VIAL IM PRN (22:06)
[2020-01-05] MEDS ORDERED: HYDRALAZINE HCL 20 MG/ML VIAL IV PRN (22:06)
[2020-01-05] MEDS ORDERED: WATER FOR INJ,STERILE 10 ML IM PRN (22:06)
[2020-01-05] MEDS ORDERED: LORAZEPAM 0.5 MG TABLET PO PRN (22:06)
[2020-01-05] MEDS ORDERED: ACETAMINOPHEN 325 MG TABLET PO PRN (22:06)
[2020-01-05] MEDS ORDERED: NA CHLORIDE 0.9% 1,000 ML IV SCH (23:00)
[2020-01-05 23:38] VITALS: BMI 19.3
[2020-01-05] MEDS: METOPROLOL TAR 25 MG TAB PO SCH (23:50)
[2020-01-05] MEDS: Levofloxacin 250mg IV 250 MG/50 ML BAG IV SCH (23:52)
[2020-01-06] MEDS: IPRATROPIUM BROM 0.5MG/2.5ML NEB SCH ×4 (01:38→20:10)
[2020-01-06 04:16] LABS: Absolute Lymphocytes (CBC) 0.6 K/uL (0.7-4.9); Basophils % 0.2 % (0-1.3); Hematocrit 24.4 % (39.6-49.0); Lymphocytes % 9.7 % (15.3-44.8); MPV 8.3 fL (7.6-11.3); RBC Red Blood Cell Count 3.06 M/uL (4.33-5.43)
[2020-01-06 04:29] LABS: Bilirubin Total 0.3 mg/dL (0.2-1.0); Potassium 3.8 mmol/L (3.5-5.1); Protein, Total 6.8 g/dL (6.4-8.2)
[2020-01-06] MEDS: METOPROLOL TAR 25 MG TAB PO SCH ×2 (05:06→17:17)
[2020-01-06] MEDS ORDERED: CEFEPIME 1 GM/VIAL IV SCH (09:00)
[2020-01-06] MEDS: MEMANTINE HCL 10 MG TABLET PO SCH (09:50)
[2020-01-06] MEDS: ASPIRIN 81 MG CHEWABLE TABLET PO SCH (09:50)
[2020-01-06] MEDS: CEFEPIME/SWI 1gm 10 ML IV SCH (09:51)
[2020-01-06] MEDS: NA CHLORIDE 0.9% 1,000 ML IV SCH ×2 (09:54→13:35)
--- NOTE | 2020-01-06 10:30 | EKG ---
Test Date: 2020-01-05 Test Time: 19:17:02 Drafter Mechanical: DAVE MEASUREMENT RESULTS: Intervals: Rate: 125 GA: QRSD: 100 QT: 340 QTc: 490 Murtaugh: P: GA: QRS: 1 T: 88 INTERPRETIVE STATEMENTS: Atrial fibrillation with rapid ventricular response Nonspecific ST and T wave abnormality, probably digitalis effect Abnormal ECG Compared to ECG 11/18/2019 08:24:44 Ventricular premature complex(es) no longer present Left bundle-branch block no longer present Prolonged QT interval no longer present ST (T wave) deviation still present Electronically Signed On 01-06-20 10:29:06 CDT by Cosme Ralph
--- NOTE | 2020-01-06 11:15 | P.CNS ---
Date of Consult: 01/06/20 Reason for Consult: NAVNEET , fluid management Chief Complaint: Low oxygen and fever History of Present Illness: HPI Pt i spoor historian, Hx obtained from chart An 83 Y/o man PMHx of seizure, hypertension, peripheral vascular disease, AFib , hyperlipidemia, dementia, patient had chronic kidney disease. Pt presented for hypoxia, in ER pt O2 sat in 80s and febrile , Cr 1.88, CXR with mild congestion as per chart pt had head trauma recently he was admitted in [facility] , had NAVNEET peak cr of 4.0 due to obstructive uroapthy Past Medical History: 1. Dementia. 2. Seizure. 3. Hypertension. 4. Peripheral vascular disease. 5. AFib. 6. Hyperlipidemia. 7. Chronic kidney disease, baseline creatinine 1.3, GFR of 53 back in June 2019. Social History: Lives in group home. The rest none obtainable. Review of Systems: unable to obtain Home Medications: 1. Metoprolol. 2. Eliquis. 3. Multivitamin. 4. Tylenol. 5. Codeine. 6. Atorvastatin. 7. Aspirin. Current medications in the hospital include: 1. Meropenem. 2. Vancomycin. 3. Pantoprazole. 4. Octreotide. 5. IV fluid normal saline at 100 per hour. Surgical History: None obtainable. Family History: None obtainable. Physical exam general: lethargic, responsive to verbal stimuli Neck; Supple, No elevated JVD hear: RRR, normal S1,2 no murmur or rub Chest: mild basal rales Abdomen: Soft , Nt , Saavedra cath Extremities No Edema A?P NAVNEET on CKD possibly due to dehydraation and obstructive uropathy will order US will reduce IVF rate renal dose meds Afib currently rate controlled Sepsis F/U cultures Cont Abx CHF?? will hold on lasix for now will reduce IVF rate CXR tomorrow Allergies No Known Drug Allergies Allergy (Verified 04/30/16 06:26) Unknown Home Medications: Atorvastatin Calcium [Lipitor*] 10 mg PO BEDTIME 04/26/16 Memantine HCl [Namenda] 10 mg PO DAILY #30 tablet 04/27/16 Lacosamide [Vimpat*] 150 mg PO BID 04/30/16 Aspirin 81 mg PO DAILY 11/13/19 Acetaminophen [Tylenol] 650 mg PO Q4HP PRN 01/05/20 Bisacodyl [Laxative Suppository] 10 mg RC DAILYPRN PRN 01/05/20 Codeine/APAP [Tylenol W/Codeine #3 tab] 1 tab PO Q8HP PRN 01/05/20 Magnesium Citrate [Citrate Of Magnesia] 300 ml PO DAILYPRN PRN 01/05/20 Metoprolol Tartrate [Lopressor] 50 mg PO BID 01/05/20 Mirtazapine [Remeron] 15 mg PO BEDTIME 01/05/20 Omeprazole 20 mg PO DAILY 01/05/20 - Past Medical/Surgical History Diabetic: No -: Dementia -: Seizure disorder -: Hypertension -: Atrial fibrillation -: dysphagia -: CVA -: hyperlipidemia -: PVD -: R hip Bipolar arthroplasty - Social History Smoking Status: Unknown if ever smoked Alcohol use: No CD- Drugs: No Caffeine use: No Place of Residence: [place] Physical Examination Temp Pulse Resp BP Pulse Ox 97.7 F 98 H 18 111/56 L 97 01/06/20 08:00 01/06/20 08:00 01/06/20 08:00 01/06/20 08:00 01/06/20 08:00 Laboratory Data (last 24 hrs) 01/05/20 19:15: PT 15.7 H, INR 1.35, APTT 29.2 01/05/20 19:15: WBC 10.2 D, Hgb 9.0 L, Hct 28.8 L, Plt Count 445 H 01/05/20 19:15: Sodium 142, Potassium 4.0, BUN 51 H, Creatinine 1.88 H, Glucose 156 H, Total Bilirubin 0.4, AST 46 H, ALT 31, Alkaline Phosphatase 208 H, Amylase 41, Lipase 138
--- NOTE | 2020-01-06 11:28 | P.PN ---
Subjective Date of Service: 01/06/20 Chief Complaint: Low oxygen and fever Patient is awake and responsive. He is tachycardic. Noted patient has a malodorous left gluteal decubitus ulcer. Blood pressure has been stable. Oxygen saturation is good on room air. Physical Examination - Vital Signs Temperature: 97.7 F Blood Pressure: 111/56 Pulse: 98 Respirations: 18 Pulse Ox (%): 97 - Physical Exam General: In no apparent distress, Other (Awake, underweight.) HEENT: Mucous membr. moist/pink, Sclerae nonicteric Neck: Supple, JVD not distended Respiratory: Clear to auscultation bilaterally, Normal air movement Cardiovascular: No edema, Regular rate/rhythm, Normal S1 S2 Gastrointestinal: Normal bowel sounds, Soft and benign, Non-distended, No tenderness Musculoskeletal: No swelling Integumentary: Other (Non stageable decubitus ulcer-right gluteal region. Ulcer has areas of necrosis and eschar.) Neurological: Dementia - Studies Laboratory Data (last 24 hrs) 01/05/20 19:15: PT 15.7 H, INR 1.35, APTT 29.2 01/05/20 19:15: WBC 10.2 D, Hgb 9.0 L, Hct 28.8 L, Plt Count 445 H 01/05/20 19:15: Sodium 142, Potassium 4.0, BUN 51 H, Creatinine 1.88 H, Glucose 156 H, Total Bilirubin 0.4, AST 46 H, ALT 31, Alkaline Phosphatase 208 H, Amylase 41, Lipase 138 Microbiology Data (last 24 hrs): 01/05/20 19:18 Blood - Blood Anaerobic Blood Culture - Final Assessment And Plan - Current Problems (Diagnosis) (1) Metabolic encephalopathy Current Visit: Yes Status: Acute (2) Sepsis Current Visit: Yes Status: Acute (3) UTI (urinary tract infection) Current Visit: Yes Status: Acute (4) Infected decubitus ulcer Current Visit: Yes Status: Acute (5) Anticoagulated Current Visit: Yes Status: Acute (6) Atrial fibrillation Onset Date: 04/26/16 Current Visit: No Status: Chronic Qualifiers: Atrial fibrillation type: longstanding persistent Qualified Code(s): I48.11 - Longstanding persistent atrial fibrillation (7) Acute worsening of stage 3 chronic kidney disease Current Visit: Yes Status: Acute - Plan Continue current antibiotics-Levaquin and Cefepime IV Add IV vancomycin. Consult general surgery for decubitus ulcer debridement Follow cultures. Hold anticoagulation for impending surgery. IV hydration with normal saline Supplemental oxygen as needed. IV Lasix p.r.n. for CHF. Local wound care. Physician Review: Patient Assessed, Agree with Above Assessment and Plan
[2020-01-06] MEDS: VANCOMYCIN 1.25 GM in NA CHLORIDE 0.9% 250 ML IVPB SCH (13:34)
[2020-01-06] MEDS ORDERED: ALBUTEROL 2.5 MG/3 ML NEB SOL NEB PRN (15:00)
--- NOTE | 2020-01-06 15:44 | CON ---
Date of Consultation: 01/06/2020 Brief History Of Present Illness: The patient is an 84-year-old male with past medical his tory of dementia, hypertension, AFib, correction resident, who was found to have hypoxia while eati ng dinner at his correction facility on 01/04. He was therefore transferred to the hospital with t he above-stated complaints. During his workup, he was noted to have some pulmonary problems and poss ible urinary tract infection. In addition, during the routine examination, it was noted that he had a large left buttock necrotic ulcer consistent with a pressure ulcer of this area. It was tender, mccabe d a black eschar and had some rim of surrounding cellulitis to this area. As such, I was consulted f or the above-stated complaint. Past Medical History: Significant for dementia, seizure disorder, hypertension, atrial fibrillation, dysphagia, CVA, hyperlipidemia, peripheral vascular disease. Past Surgical History: Includes a right hip bipolar arthroplasty. He is nonverbal and as such I can not achieve any information from the patient. Therefore, the information is obtained from the chart. Allergies: NO KNOWN DRUG ALLERGIES. Home Medications: Include Lipitor, Tylenol No. 3, multivitamin, Namenda, lacosamide, Tylenol, aspiri n, Toprol, and Levaquin. Review of Systems: Unable to obtain. Social History: Unable to obtain. Physical Examination: Vital Signs: At the time of my examination, his BMI is 19.3. His vital signs were a temperature of 97.6, respiratory rate 16, heart rate 92, blood pressure 99/49. General: He is awake and alert, but dementia is present. He is nonverbal during my examination. HEENT: Otherwise normocephalic. His sclerae were anicteric. His mucous membranes were moist. Orop harynx clear. Neck: Supple. No JVD. Chest: Normal expansion and excursion. Abdomen: Soft, nontender, nondistended. Extremities: Focused examination of the extremities, he has a large approximately 5.5 to 6 cm ulcer of the right buttock with central necrosis in this area. This appears to be a pressure ulcer by its appearance. It does not involve the anus or sacrum as such. It is predominantly focused on the left buttock area on the inner leaflet. Laboratory Data: Revealed a white blood count of 6.6, hemoglobin 7.5 over hematocrit of 24.4, platel et count was 332. His neutrophils were 80%. His sodium 145, potassium 3.8, chloride 116, carbon whitney xide 22, BUN 47, creatinine 1.6, glucose was 99. He had a positive urinary tract infection by UA erich lysis. Additionally, he had a chest x-ray, which was officially read as mild CHF on the chest x-ray. Assessment And Plan: This is an 84-year-old male who comes in with multiple medical problems and a l arge gluteal pressure ulcer with necrosis. 1.Continue medical management. 2.IV fluid hydration. 3.Antibiotic coverage. 4.I have explained the risks, benefits, and alternatives of debridement of this left gluteal pressur e ulcer. However, patient is unable to consent as he currently has significant dementia. As such, nakia dunn will obtain consent from the family for his procedure and I plan on excisional debridement of this necrotic ulcer in a.m. if the patient's family approves. Thank you for this interesting consult. RYAN/THUAN Voice ID: [id number] Report ID: [id number]
--- NOTE | 2020-01-06 17:22 | RAD REPORT ---
EXAM DESCRIPTION: US - Renal Ultrasound-Complete - 01/06/2020 4:26 pm CLINICAL HISTORY: NAVNEET Flank pain COMPARISON: No comparisons FINDINGS: The right kidney is atrophic and difficult to visualize due to patient positioning. The left kidney measures 10.9 x 6.4 by 4.3 cm. Moderate left-sided hydronephrosis. Echogenic structure is seen along the lateral aspect of the bladder. This may represent a mass or blo od clot. Cystoscopy may be of value for further assessment. IMPRESSION: Moderate left-sided hydronephrosis. Echogenic material along the lateral aspect of the urinary bladder may represent a blood clot or mass . Cystoscopy may be of value.
[2020-01-06] MEDS: ENSURE ENLIVE 237 ML CAN PO SCH (20:37)
[2020-01-06] MEDS: JUVEN PACKET PO SCH (20:37)
[2020-01-06] MEDS: Levofloxacin 250mg IV 250 MG/50 ML BAG IV SCH (22:50)
[2020-01-07] MEDS: IPRATROPIUM BROM 0.5MG/2.5ML NEB SCH ×3 (01:45→14:36)
[2020-01-07] MEDS ORDERED: ACETAMINOPHEN 650MG/RECT SUPP PR PRN (02:03)
[2020-01-07 04:15] LABS: Absolute Lymphocytes (CBC) 0.5 K/uL (0.7-4.9); Basophils % 0.4 % (0-1.3); Hematocrit 24.1 % (39.6-49.0); Lymphocytes % 5.9 % (15.3-44.8); MPV 8.4 fL (7.6-11.3); RBC Red Blood Cell Count 3.07 M/uL (4.33-5.43)
[2020-01-07] MEDS: METOPROLOL TAR 25 MG TAB PO SCH (05:00)
[2020-01-07] MEDS: JUVEN PACKET PO SCH ×2 (08:17→21:00)
[2020-01-07] MEDS: MEMANTINE HCL 10 MG TABLET PO SCH (08:17)
[2020-01-07] MEDS: ENSURE ENLIVE 237 ML CAN PO SCH ×2 (08:17→21:00)
[2020-01-07] MEDS: ASPIRIN 81 MG CHEWABLE TABLET PO SCH (08:17)
[2020-01-07] MEDS: CEFEPIME/SWI 1gm 10 ML IV SCH (08:21)
[2020-01-07] MEDS ORDERED: propofoL 200 MG/20 ML VIAL IV ONE (08:52)
[2020-01-07] MEDS ORDERED: FENTANYL CITR 100 MCG/2 ML ONE (08:52)
[2020-01-07] MEDS ORDERED: LIDOCAINE 2% MPF 5 ML VIAL ONE (08:53)
[2020-01-07] MEDS ORDERED: BUPIVACA 0.25%/EPI 0.0005% MDV 50 ML VIAL ONE (09:04)
[2020-01-07] MEDS ORDERED: Phenylephrine HCl 10 MG/ML 1 ML VIAL ONE (09:25)
--- NOTE | 2020-01-07 09:34 | RAD REPORT ---
EXAM DESCRIPTION: RAD - Chest Single View - 01/07/2020 9:13 am CLINICAL HISTORY: F/u CHF Chest pain. COMPARISON: Chest Single View dated 01/05/2020; Chest Single View dated 11/18/2019; Chest Single View dated 11/15/2019; Chest Single View dated 11/13/2019 FINDINGS: Portable technique limits examination quality. Mild improvement in lung aeration is seen since the comparative study. The heart is moderately enlarg ed in size. No displaced fractures. IMPRESSION: Mild improvement in CHF.
[2020-01-07] MEDS ORDERED: ESMOLOL HCL 10 ML IV ONE (09:42)
[2020-01-07] MEDS ORDERED: MORPHINE 10 MG/ML VIAL ONE (09:44)
--- NOTE | 2020-01-07 09:47 | P.OP ---
Preoperative diagnosis: LEFT Gluteal Pressure Ulcer Postoperative diagnosis: Stage IV LEFT Gluteal Pressure Ulcer Primary procedure: Excisional Debridement of Stage IV LEFT Gluteal Pressure Ulcer Anesthesia: GETA + Local Estimated blood loss: <5cc Specimen: Debridement Tissue, cultures Findings: STAGE IV Ulcer to [place], not involving anus Complications: None Transferred to: Recovery Room Condition: Good
[2020-01-07] MEDS ORDERED: NA CHLORIDE 0.9% 1,000 ML ONE (09:48)
--- NOTE | 2020-01-07 11:00 | OP ---
Date of Procedure: 01/07/2020 Surgeon: William Simpson MD, Preoperative Diagnosis: Left gluteal pressure ulcer. Postoperative Diagnosis: Stage IV left gluteal pressure ulcer. Procedure Performed: Excisional debridement of stage IV left gluteal pressure ulcer. Anesthesia: General endotracheal plus local 0.5% Marcaine with epinephrine. Estimated Blood Loss: 5 cc. Specimen: Debridement tissue and culture sent for aerobic and anaerobic speciation. Findings: Stage IV ulcer to the ischium on the left, not involving the anus, approximately 8 cm x 7 cm x 4 cm depth. Complications: None. Disposition: Transferred to recovery room in good condition. Procedure In Detail: After informed consent was obtained, patient was brought to the operating room, prepped and draped in the usual sterile fashion. After adequate anesthesia was achieved, a circumfe rential area around the left gluteal pressure ulcer was incised using a 15 blade down through subcuta neous tissues. Electrocautery was used to dissect down. Following the necrotic tissue planes, immed iately abscess was encountered. This was cultured at this time for aerobic and anaerobic speciation and dissection continued down and followed the infection all the way to the level of the ischium on t he left and it tracked toward the perineum additionally in an oblong oval type pattern, not involving the anus. All of the necrotic tissue was debrided down through muscle and to the level of the bone on the ischium. Fascial planes were involved as well and these were all removed until I was down to good bleeding healthy tissue. After all the necrotic tissue was removed, the area was copiously irri gated multiple times until completely clear and hemostasis was achieved with electrocautery. There w as no intestinal violation obvious at this point. The area was then inspected one last time and a Be tadine-soaked gauze was packed into the wound and a sterile dressing was placed over top. Patient to lerated the procedure well without evidence of complication and transferred to PACU in good condition . All counts were correct. RYAN/THUAN Voice ID: [id number] Report ID: [id number]
[2020-01-07] MEDS ORDERED: BISACODYL 10 MG RECTAL SUPP PR PRN (15:13)
--- NOTE | 2020-01-07 16:30 | RAD REPORT ---
EXAM DESCRIPTION: CT - Stone Protocol - 01/07/2020 4:00 pm CLINICAL HISTORY: Stone protocol COMPARISON: Abdomen Pelvis Wo Contrast dated 11/13/2019; Chest Single View dated 01/07/2020; Renal U ltrasound-Complete dated 01/06/2020 TECHNIQUE: Axial 5 mm thick images were obtained without oral or IV contrast. The qxxts-kr-xlls span s the entirety of the system including uppermost abdomen and lung bases. All CT scans are performed using dose optimization technique as appropriate and may include automated exposure control or mA/KV adjustment according to patient size. FINDINGS: Moderate left-sided hydronephrosis is present down to the UVJ level. No obstructing stone or mass identifiable. Moderate severity hydronephrosis of the right collecting system is also present down to the UVJ without obstructing stone or mass. Right kidney is much smaller than the left with s ignificant cortical thinning. No nonobstructing calculi. No suspicious renal masses. Isodense masses and pyelonephritis are not excluded on a stone protocol CT scan. Urinary bladder is distended. No robe dder wall thickening or mass. Pelvic floor and bladder base assessment limited due to spray artifact from right hip prosthesis. Prostate gland is not grossly enlarged. Urethral outlet obstruction could still be present. No bladder stone identified. No significant adrenal finding. Imaged portions of the liver, spleen and pancreas show no suspicious findings on non-contrast imaging . No gallbladder or biliary tree abnormality identified. Gallstones can be occult on CT imaging. Small hiatal hernia is present. No gastric dilatation or wall thickening. No small bowel abnormality seen. An enlarged appendix is present dilated to 10 mm. No appendicolith present. There is no edema i n the wall and no stranding in the adjacent fat. This is an unusual presentation but is probably not acute appendicitis in the absence of any clinical findings. Patient has a large amount of stool dilat ing the rectum to 8 cm. No peritoneal or retroperitoneal mass or bulky lymphadenopathy. Disc and bone degenerative changes ar e present. Abdominal aortic aneurysm to 3.7 cm is present similar to October imaging. Vascular assess ment is limited in the absence of IV contrast. Fem-fem bypass graft is in place but cannot be fully characterized in the absence of contrast. Soft tissues are irregular along the left inferior gluteal fold. It is difficult to determine if this is skin fold artifacts or might be a decubitus ulcer. There is some edema in this region. Correlatio n is needed with physical exam finding. This area is only partially imaged on this study. Stranding in each posterior gutter favored to be atelectasis rather than pneumonia. IMPRESSION: Moderate severity bilateral hydronephrosis and hydroureter down to the UVJ level. Urinar y bladder is distended. No obstructing stone or mass identified. This may be a prostatic urethral obs tructive process. The bladder distention and hydronephrosis are similar or only slightly worse compared to the October study. Significant cortical thinning and volume reduction of the right kidney. This is similar to comparison . Skin fold artifact versus decubitus ulcer along the left inferior gluteal fold. This needs correlatio n with physical exam. Patient has an enlarged appendix but no additional finding that would indicate acute appendicitis. Th is needs correlation with lab values and clinical presentation. Left greater than right lung base opacification favored to be atelectasis. Minimal pneumonia on the r ight cannot be excluded. Stable infrarenal abdominal aortic aneurysm.
[2020-01-07 17:29] LABS: Urine Protein/Creatinine Ratio 2.26 ratio (<0.15)
--- NOTE | 2020-01-07 18:13 | PN ---
Date of Progress Note: 01/07/2020 Subjective: The patient was admitted with acute kidney injury. The patient found to have elevation in BUN and creatinine. For that reason, we have been consulted. Primary workup showed acute kidney injury secondary to prerenal and obstructive uropathy. Physical Examination: Vital Signs: When I saw the patient, blood pressure of 104/57, pulse of 93. The patient had good urine output. Chest: Clear to auscultation. Heart: S1, S2. Systolic murmur. Abdomen: Soft, nontender. Extremity: No edema. Neuro: Patient confused. Laboratory Data: H and H 7.424. Sodium 145, potassium 3.8, bicarb 22, BUN 47 , creatinine 1.6, continues to trend down. GFR of 40, calcium 8.1. TSH 0.5. P /C ratio of +2, still not quantified. Renal ultrasound showing 10.9 with left- sided hydronephrosis. The right kidney is atrophic. Medications: Current medications the patient is on include: 1. Cefepime. 2. Levaquin. 3. Vancomycin. 4. Hydralazine. 5. Metoprolol. 6. Lorazepam. 7. Zofran. 8. IV fluid. Assessment And Plan: 1. Acute kidney injury, multifactorial, secondary to obstructive uropathy, prerenal, poor perfusion, acute tubular necrosis, on solitary kidney. I am going to go ahead and consult Urology. We will continue hydration. We will get a CT abdomen and pelvis, and we will follow up. we will start the patient on Flomax. Given the marginal blood pressure and specially that the patient is going to be started on Flomax, I am going to go ahead and discontinue hydralazine and metoprolol. 2. Urinary tract infection, complicated with obstruction on solitary kidney. Continue current antibiotic. We will follow up with the Urology. Start Flomax. Follow up culture. SHABANA/THUAN Voice ID: [id number] Report ID: [id number] ELISE
[2020-01-07 18:19] LABS: Hematocrit 26.2 % (39.6-49.0)
--- NOTE | 2020-01-07 19:17 | PN ---
Date of Progress Note: 01/07/2020 Subjective: Patient seen and examined. Chart reviewed and case discussed with RN. Patient went for debridement today, tolerated procedure well. Medications: List reviewed. Code Status: Full. Physical Examination: Vital Signs: Temperature 99.4, heart rate 90, blood pressure 122/58, respirations 18, O2 of 94% on room air. General: Awake, alert, oriented, not in any acute distress. Elderly male, frail. CV: S1, S2. Irregularly irregular. Peripheral pulses present, but 2+. Respiratory: Moving air well bilaterally. No wheezing or stridor. Gastrointestinal: Abdomen is soft, nontender, nondistended. Positive bowel sounds. Extremities: No clubbing, cyanosis, or edema. Neurologic: Nonfocal. Skin: Patient has sacral wound bandaged. No drainage. Minimal erythema. Laboratory Data: WBC 8, H and H 7.7 and 24.1, platelets 336. Repeat hemoglobin is 7.4 in 24. Assessment And Plan: An 84-year-old male with; 1. Sepsis secondary to infected decubitus ulcer. We will continue with broad- spectrum IV antibiotics. We will follow up on cultures. Blood cultures are negative to date. Wound cultures are pending. Urine culture growing out 100, 000 colony-forming units of gram-negative rods. 2. Acute metabolic encephalopathy, improving, likely secondary to sepsis. 3. Acute cystitis secondary to gram-negative rods we will follow up on final ID and sensitivity. 4. Infected decubitus ulcer status post debridement by Dr. Simpson. We will follow up on wound culture results stage IV. 5. Atrial fibrillation, control ventricular rate on anticoagulation. 6. Chronic kidney disease stage 3 with acute worsening, improving. Creatinine down to 1.64 yesterday. We will repeat BMP in a.m. Continue to monitor creatinine level and avoid NSAIDs. We will resume anticoagulation 24 hours post surgery. Continue wound care per Dr. Simpson's orders. Monitor cultures. /THUAN Voice ID: [id number] Report ID: [id number] MTDOtoniel
[2020-01-07] MEDS: Levofloxacin 250mg IV 250 MG/50 ML BAG IV SCH (21:59)
[2020-01-07] MEDS: METOPROLOL TAR 50 MG TAB PO SCH (21:59)
[2020-01-07] MEDS: NA CHLORIDE 0.9% 1,000 ML IV SCH (21:59)
[2020-01-08] MEDS: IPRATROPIUM BROM 0.5MG/2.5ML NEB SCH ×4 (01:15→20:20)
[2020-01-08] MEDS: NA CHLORIDE 0.9% 1,000 ML IV SCH ×2 (02:00→23:02)
[2020-01-08] MEDS: VANCOMYCIN 1.25 GM in NA CHLORIDE 0.9% 250 ML IVPB SCH (02:34)
[2020-01-08] MEDS: PANTOPRAZOLE 40MG TABLET PO SCH (07:30)
[2020-01-08 08:00] LABS: Albumin 1.8 g/dL (3.4-5.0); Ferritin 96.8 ng/mL (26-388); Phosphorus 2.9 mg/dL (2.5-4.9); Potassium 3.6 mmol/L (3.5-5.1)
[2020-01-08] MEDS ORDERED: HOME MED 1 EA UNK (Omeprazole [Omeprazole] 20 MG) PO SCH (09:00)
[2020-01-08] MEDS: MEMANTINE HCL 10 MG TABLET PO SCH (09:46)
[2020-01-08] MEDS: METOPROLOL TAR 50 MG TAB PO SCH ×2 (09:47→23:02)
[2020-01-08] MEDS: ASPIRIN 81 MG CHEWABLE TABLET PO SCH (09:47)
[2020-01-08] MEDS: JUVEN PACKET PO SCH ×2 (09:49→21:00)
[2020-01-08] MEDS: CEFEPIME/SWI 1gm 10 ML IV SCH (09:49)
[2020-01-08] MEDS: ENSURE ENLIVE 237 ML CAN PO SCH ×2 (09:49→21:00)
[2020-01-08 10:31] LABS: Absolute Lymphocytes (CBC) 0.8 K/uL (0.7-4.9); Basophils % 0.4 % (0-1.3); Lymphocytes % 11.7 % (15.3-44.8); MPV 8.1 fL (7.6-11.3); RBC Red Blood Cell Count 3.49 M/uL (4.33-5.43)
[2020-01-08] MEDS ORDERED: Levofloxacin500mg IV 500 MG/100 ML BAG IV SCH (13:00)
[2020-01-08] MEDS ORDERED: CEFEPIME 2 GM in NA CHLORIDE 0.9% 100 ML IV SCH (15:00)
[2020-01-08] MEDS ORDERED: CEFEPIME/SWI 2gm 2 GM/20 ML SYR IV SCH (15:00)
--- NOTE | 2020-01-08 15:33 | PN ---
Date of Progress Note: 01/08/2020 History: Patient was admitted with acute kidney injury secondary to obstructive uropathy. Patient y esterday had CAT scan showing bilateral hydro with atrophic right kidney. Saavedra has been inserted. Patient had good urine output upon placement of the Saavedra. We have 900. Physical Examination: Vital Signs: When I saw the patient, blood pressure 164/73, pulse of 111, afebrile. Patient had uri ne output of 1900. Chest: Clear to auscultation. Heart: S1, S2. Systolic murmur. Abdomen: Soft, nontender. Extremity: No edema. Laboratory Data: WBC 6.8, H and H 8.7/28, platelets 342. Sodium 149, potassium 3.6, bicarb 20, BUN 31, creatinine 1.3 continue to improve. GFR of 52, calcium 8.4, T-sat of 7, ferritin of 96. Current Medications: The patient on includes cefepime, Levaquin, vancomycin, metoprolol 50 b.i.d., T ylenol, lorazepam, Namenda. Normal saline, bisacodyl. Assessment And Plan: 1.Acute kidney injury secondary to obstructive uropathy, and solitary kidney, supported with the veronika varma on the CAT scan and ultrasound done, oliguric, no hyperkalemia or acidosis. Given the age of th e patient, I am going to start the patient on Flomax. Continue Saavedra. We will follow up with isabell singh. 2.Urinary tract infection secondary to Proteus mirabilis. Continue Levaquin as it is sensitive. We will consider downgrade the antibiotic. I am going to go ahead and discontinue cefepime for the michelle e being. We will consider discontinuing vancomycin after discussing with the primary. I am going to go ahead and also increase Levaquin to 500 mg daily given the improvement in the kidney function. 3.Hypokalemia. We will supplement. 4.Sepsis secondary to infected decubitus ulcer and UTI. Follow up with the primary. 5.Atrial fibrillation as by primary. SHABANA/THUAN Voice ID: [id number] Report ID: [id number]
[2020-01-08] MEDS: SODIUM HYPOCHLORITE 0.5% 473 ML TOP SCH (16:48)
--- NOTE | 2020-01-08 16:55 | PN ---
Date of Progress Note: 01/08/2020 Subjective: Patient seen and examined. Chart reviewed and case discussed with RN, Dr. Mata, and Dr. Simpson. Patient seems to be doing okay. No significant complaints. No acute events overnight. Medications: List reviewed. Physical Examination: Vital Signs: Temperature 97.2, heart rate 111, blood pressure 154/73, respirations 20, O2 saturation 96% on room air. General: Awake, alert, oriented x3, in some mild distress. Elderly male, frail. CV: S1, S2. Irregularly irregular. Peripheral pulses weak. Respiratory: Diminished breath sounds on the right. Gastrointestinal: Abdomen is soft, nontender, nondistended. Positive bowel sounds. Extremities: No clubbing, cyanosis, or edema. Neurologic: Nonfocal. Skin: Patient has large decubitus ulcer stage IV, bandaged with some mild surrounding erythema. Laboratory Data: Sodium 149, potassium 3.6, chloride 119, CO2 20, BUN 31, creatinine 1.31, glucose 66, calcium 8.4, phosphorus 2.9. Iron 19, TIBC 244, transferrin 174, ferritin 96. Albumin 1.8. PTH 28.8. WBC 6.8, H and H 8.7 and 28, platelets 342, neutrophils 81%. Blood cultures, no growth to date. Urine culture growing out Proteus mirabilis. Wound culture also growing out proteus, resistant to Cipro. Surgical wound cultures still pending, growing out gram-negative rods. Assessment: An 84-year-old male with: 1. Sepsis secondary to infected decubitus ulcer secondary to Proteus, improving. We will continue with IV antibiotics. Blood cultures negative to date. Surgical wound cultures are pending, growing out gram-negative rods. Urine culture also growing out proteus. 2. Acute metabolic encephalopathy, improving, likely secondary to sepsis. 3. Acute cystitis with hematuria secondary to proteus. We will continue with IV antibiotics. 4. Decubitus ulcer, infected with proteus. Surgical wound culture is also growing out gram-negative rods. Continue with IV antibiotics. Continue with local wound care with Santyl and offloading. 5. Atrial fibrillation with controlled ventricular rate. Continue anticoagulation. 6. Chronic kidney disease stage 3, improving. Patient has significant hydronephrosis. There is no Urology service available; however, with Flomax, patient is making good urinary output. 7. Right lung base atelectasis. He may be developing pneumonia. We will continue with physical therapy and incentive spirometry. 8. Abdominal aortic aneurysm, stable. Plan: 1. Due to patient's extensive wounds, need for ibhrqc-fch-wpzce wound care as well as UTI and infection in the sacral wound, he will need long-term IV antibiotics for at least 4 weeks. We will consult ID. We will refer to LTAC. Patient will not do well at nursing facility as he needs higher level of care due to requirements for unygyj-swk-uxtun wound care and IV antibiotics with lab monitoring. We will have PICC line placed and have case management and vp digital marketing social media and crm send referrals to LTAC. 2. DVT prophylaxis, Lovenox, renally dosed. /THUAN Voice ID: [id number] Report ID: [id number] MTDD
[2020-01-08] MEDS: DOCUSATE NA 100 MG CAP PO SCH (23:02)
[2020-01-09 06:03] LABS: Absolute Lymphocytes (CBC) 0.5 K/uL (0.7-4.9); Basophils % 0.3 % (0-1.3); Hematocrit 26.6 % (39.6-49.0); Lymphocytes % 7.3 % (15.3-44.8); MPV 8.3 fL (7.6-11.3); RBC Red Blood Cell Count 3.36 M/uL (4.33-5.43)
[2020-01-09 06:56] LABS: Albumin 1.9 g/dL (3.4-5.0); Phosphorus 2.9 mg/dL (2.5-4.9); Potassium 3.4 mmol/L (3.5-5.1)
[2020-01-09] MEDS: IPRATROPIUM BROM 0.5MG/2.5ML NEB SCH (08:20)
[2020-01-09] MEDS ORDERED: POLYETHYL GLY 3350 17 GM/DOSE PO SCH (09:00)
[2020-01-09] MEDS ORDERED: TAMSULOSIN 0.4 MG SR CAP PO SCH (09:00)
[2020-01-09] MEDS ORDERED: Meropenem 1000 MG/VIAL IV SCH (09:00)
[2020-01-09] MEDS: MEMANTINE HCL 10 MG TABLET PO SCH (10:28)
[2020-01-09] MEDS: METOPROLOL TAR 50 MG TAB PO SCH (10:28)
[2020-01-09] MEDS: ASPIRIN 81 MG CHEWABLE TABLET PO SCH (10:28)
[2020-01-09] MEDS: ENSURE ENLIVE 237 ML CAN PO SCH (10:29)
[2020-01-09] MEDS: JUVEN PACKET PO SCH (10:29)
[2020-01-09] MEDS: DOCUSATE NA 100 MG CAP PO SCH (10:29)
[2020-01-09] MEDS: PANTOPRAZOLE 40MG TABLET PO SCH (10:32)
[2020-01-09] MEDS: Meropenem 1,000 MG in NA CHLORIDE 0.9% 100 ML IV SCH ×2 (11:11→16:40)
[2020-01-09] MEDS: SODIUM HYPOCHLORITE 0.5% 473 ML TOP SCH (11:12)
--- NOTE | 2020-01-09 12:16 | P.PN ---
Subjective Date of Service: 01/09/20 Chief Complaint: Low oxygen and fever HPI Pt i spoor historian, Hx obtained from chart An 83 Y/o man PMHx of seizure, hypertension, peripheral vascular disease, AFib , hyperlipidemia, dementia, patient had chronic kidney disease. Pt presented for hypoxia, in ER pt O2 sat in 80s and febrile , Cr 1.88, CXR with mild congestion found to have Lt hydronephrosis today No chane in clinical status will change fluid to NS possible discahrge to LTAC Past Medical History: 1. Dementia. 2. Seizure. 3. Hypertension. 4. Peripheral vascular disease. 5. AFib. 6. Hyperlipidemia. 7. Chronic kidney disease, baseline creatinine 1.3, GFR of 53 back in June 2019. Social History: Lives in [facility]. The rest none obtainable. Review of Systems: unable to obtain Home Medications: 1. Metoprolol. 2. Eliquis. 3. Multivitamin. 4. Tylenol. 5. Codeine. 6. Atorvastatin. 7. Aspirin. Current medications in the hospital include: 1. Meropenem. 2. Vancomycin. 3. Pantoprazole. 4. Octreotide. 5. IV fluid normal saline at 100 per hour. Surgical History: None obtainable. Family History: None obtainable. Physical exam general: AAXO1, NAD Neck; Supple, No elevated JVD hear: RRR, normal S1,2 no murmur or rub Chest: mild basal rales Abdomen: Soft , Nt , Saavedra cath Extremities No Edema A?P NAVNEET on CKD due obstructive uropathy renal dose meds Afib currently rate controlled hypenatremia will start D5W Sepsis due to decubiti ulcer F/U cultures Cont Abx Physical Examination - Vital Signs Temperature: 97.9 F Blood Pressure: 151/68 Pulse: 104 Respirations: 18 Pulse Ox (%): 98 Assessment And Plan Physician Review: Patient Assessed, Agree with Above Assessment and Plan
[2020-01-09] MEDS ORDERED: D5W 1,000 ML IV SCH (13:00)
[2020-01-09] MEDS: VANCOMYCIN 1.25 GM in NA CHLORIDE 0.9% 250 ML IVPB SCH (13:07)
--- NOTE | 2020-01-09 13:32 | CON ---
History Of Present Illness: Patient is an 84-year-old male. I was consulted for ESBL E coli from th e left buttock wound and urosepsis secondary to Proteus mirabilis. Patient is not a good historian. Most of the history was obtained through medical records and staff. Patient has significant history of dementia, contractures to the extremities, hypertension, atrial fibrillation, care home reside nt, was brought in because of hypoxia while having dinner. Patient was found to have a fever of 104 on arrival and also was confused. Past Medical History: Includes hypercholesterolemia, dementia, hypertension, atrial fibrillation, wo und to the left buttock, stroke, right hip arthroplasty, peripheral vascular disease, contractures of the lower extremities. Social History: Nonsmoker, nondrinker. Family History: Noncontributory. Medications: Patient is currently being treated with meropenem and vancomycin. See MAR for other me dication. Allergies: NO KNOWN DRUG ALLERGIES. Review of Systems: Unable to obtain. Physical Examination: General: This is an 84-year-old male, lying in bed, opens eyes spontaneously, not in any acute distr ess. Vital Signs: Temperature 97.9, pulse 104, respirations 18, blood pressure 151/68. HEENT: Unremarkable. Neck: Supple. Lungs: Basal crackles. Heart: S1, S2. Regular. Abdomen: Soft, nontender. Bowel sounds present. Extremities: Muscle wasting noted and contractures noted in lower and upper extremities. Large woun d to the left ischial region is noted with necrotic tissue and granulation tissue also present and fo ul odor was also noted at that time of examination. Laboratory Data: Shows WBC 7.3, hemoglobin 8.1, platelets are 383. Chemistry shows sodium 150, pota ssium 3.4, chloride 120, bicarb 20, BUN 23, creatinine 1.16, glucose is 86, albumin level of 1.8. Mi field crop farmer data, Proteus mirabilis and E coli ESBL in the left buttock wound and urine with Proteus mirabili s. Chest x-ray is showing mild CHF. Assessment And Plan: The patient to continue antibiotic for at least 6 weeks for left buttock stage IV wound, infected with multidrug-resistant bacteria and urosepsis; protein calorie malnourishment wi th severe muscle wasting. We will recommend also air mattress and continue monitoring for signs of i nfection. Thank you Dr. Fitzgerald for consult. NF/MODL Voice ID: [id number] Report ID: [id number]
--- NOTE | 2020-01-09 13:55 | PN ---
Date of Progress Note: 01/09/2020 Subjective: Patient seen and examined. Chart reviewed and case discussed with RN and Dr. Yeung as well as Dr. Vyas. Patient has no complaints. Medications List: Reviewed. Physical Examination: Vital Signs: Temperature 97.9, heart rate 104, blood pressure 151/68, respirations 18, O2 98% on rojas m air. General: Awake, alert, oriented x3. Elderly male. Some mild distress, frail, cachectic, ill-appear ing male. CV: S1, S2. Irregularly irregular. Peripheral pulses present. Respiratory: Moving air well bilaterally. No wheezing or stridor. Gastrointestinal: Abdomen is soft, nontender, nondistended. Positive bowel sounds. Extremities: No clubbing, cyanosis, or edema. Neurologic: Patient has some contractures of the lower extremity. Skin: Sacral decubitus ulcer bandaged. Laboratory Data: Sodium 150, potassium 3.4, chloride 120, CO2 of 20, BUN 23, creatinine 1.16, glucos e 86, calcium 8.5, phosphorus 2.9, albumin 1.9. WBC 7.3, H and H 8.1 and 26.6, platelets 383, neutro phils 86%. Urine growing Proteus. Wound cultures from the left buttock growing Proteus and ESBL-pro ducing E coli. Hemoccult blood is positive. Anaerobic wound cultures are still pending. Assessment: An 84-year-old male with: 1.Sepsis secondary to infected decubitus ulcer secondary to proteus and extended spectrum beta-lacta cy Escherichia coli. We will adjust antibiotics. We will change to meropenem. Blood cultures neg ative to date. Urine culture also growing out Proteus. 2.Acute infected decubitus ulcer secondary to Proteus and Escherichia coli, extended spectrum beta-l actamase producing. We will place on isolation. We will continue with antibiotics, switched to rhett penem. We will need minimum of [address] Yeung's input. 3.Acute cystitis with hematuria secondary to Proteus. Continue Merrem. 4.Acute metabolic encephalopathy, resolved, back to baseline. 5.Atrial fibrillation with controlled ventricular rate. Continue anticoagulation. 6.Anemia likely due to blood loss. Patient's hemoglobin has been between 7 and 8. Has received 1 u nit of blood. Hemoccult is positive. Unfortunately, there is no GI on-call. Continue to monitor. May need to hold off on his anticoagulation. 7.Chronic kidney disease stage 3. Creatinine is normalized. 8.Hypernatremia. We will adjust fluids. 9.Right lung base atelectasis, possible pneumonia. Patient seems to favor the right side. We will need to be turned. Continue with incentive spirometry. Patient is already on antibiotics. We will repeat chest x-ray in a.m. 10.Abdominal aortic aneurysm, stable. 11.Deep venous thrombosis prophylaxis. Patient is on Lovenox. Plan: Discharge to LTAC once accepted. /THUAN Voice ID: [id number] Report ID: [id number]
--- NOTE | 2020-01-09 15:41 | RAD REPORT ---
EXAM DESCRIPTION: RAD - Chest Single View - 01/09/2020 3:28 pm CLINICAL HISTORY: PICC line placement COMPARISON: January 06 FINDINGS: Portable chest was obtained following placement of a right upper extremity PICC line. The catheter tip is not well visualized. This PICC line extends into the right atrium. Line could be retracted 3-4 cm and chest reimaged to evaluate for SVC positioning.
[2020-01-09 16:38] VITALS: O2SAT 96
--- NOTE | 2020-01-09 21:17 | DS ---
Date of Discharge: 01/09/2020 Consultants: 1.Dr. Vyas, Dr. Mata with Nephrology. 2.Dr. Yeung with Infectious Disease. 3.Dr. Smipson with General Surgery. Procedure: On 01/07/2020, excision and debridement of stage IV left gluteal pressure ulcer. Admitting Diagnoses: 1.Sepsis. 2.Acute cystitis. 3.Sacral decubitus ulcer. 4.Congestive heart failure. 5.Atrial fibrillation, not on anticoagulation. Discharge Diagnoses: 1.Sepsis, resolved. 2.Acute cystitis with hematuria secondary to proteus. 3.Acute infected decubitus ulcer, stage IV, left gluteal, status post incision and drainage. 4.Acute metabolic encephalopathy, resolved. 5.Atrial fibrillation with controlled ventricular rate, not on anticoagulation. 6.Anemia, likely due to blood loss. 7.Chronic kidney disease stage 3, currently normalized. 8.Hypernatremia, improving. 9.Right lung base, atelectasis, developing pneumonia. 10.Abdominal aortic aneurysm, stable. Hospital Course: Patient is an 84-year-old male with past medical history of dementia, hypertension, atrial fibrillation, assisted resident, came in with hypoxia, fever. Patient was found to have some mild CHF and trace left pleural effusion on the chest x-ray. He was also found to have UTI and sacral decubitus ulcer stage IV. Patient was started on IV antibiotics broad spectrum. Dr. Yeung w ith Infectious Disease was consulted. Dr. Simpson with General Surgery was also consulted. Patient' s cultures grew out Proteus from the urine. Patient had I and D of his left gluteal sacral infection grew out proteus and E coli, ESBL producing. Patient's antibiotics were adjusted to meropenem. Pat ient did have some elevated kidney function at 1.88. Nephrology was consulted, started on IV fluids, and his kidney function did improve. Patient also had drop in his hemoglobin, however, did not requ carlos any blood transfusion. The patient's hemoccult was positive. He is not on any anticoagulation f or his atrial fibrillation and this is likely a combination of his sepsis and iron deficiency anemia and anemia of chronic disease. Patient's hemoglobin remained stable at 8.7, which is around his base line. Patient came in with hemoglobin of 9. Patient will need to have outpatient workup for his Hem occult-positive stool including colonoscopy. GI unfortunately is unavailable. This is not an acute issue. He is not having any acute GI bleed. Hemoglobin is stable, did not require any blood transfu edu. No need for transfer for GI services as this can be done as an outpatient. Patient was then s et up for IV antibiotics with vancomycin and meropenem for minimum of 6 weeks as recommended by Infec tious Disease and due to his [id number] wound care, he was referred to LTAC. Patient was accep bill and discharged to [facility] in a stable condition. Activity: Fall precautions. Medications: As per medication reconciliation list. Followup: Follow up with primary care physician. Follow up with accepting physician at LTAC. Follo w up with Dr. Simpson, Surgeon, in 1 week for wound check. Follow up with Infectious Disease, Dr. Jose chaudhry, in 2 weeks. Follow up with cereal chemist, Dr. Mata, in 2 weeks. Return to ER for worsening condition. Diet: Heart healthy. Activity: Fall precautions. Physical Examination: For physical exam findings, please see progress note dictated on day of discharge. Total time spent discharging patient was 45 minutes. /THUAN Voice ID: [id number] Report ID: [id number]
[2020-01-09 22:48] VITALS: BP 151/68; TEMP 97.9
== END 2020-01-09 18:03 | DRG 853 ==
LOC: ER 18:50 → ERHOLD 22:29 → 4TH 22:55
PROVIDERS: ADMIT Internal Medicine; ATTEND Internal Medicine
PROC: 0KBP0ZZ Excision of Left Hip Muscle, Open Approach (ICD-10-PCS; principal; 2020-01-07 09:30)
PROC: 02HV33Z Insertion of Infusion Device into Superior Vena Cava, Percutaneous Approach (ICD-10-PCS; 2020-01-09)
DX: A41.9 Sepsis, unspecified organism (principal); L89.324 Pressure ulcer of left buttock, stage 4; G93.41 Metabolic encephalopathy; N17.0 Acute kidney failure with tubular necrosis; J18.9 Pneumonia, unspecified organism; E43 Unspecified severe protein-calorie malnutrition; I50.33 Acute on chronic diastolic (congestive) heart failure; R53.2 Functional quadriplegia; J96.01 Acute respiratory failure with hypoxia; J96.02 Acute respiratory failure with hypercapnia; N30.00 Acute cystitis without hematuria; Z16.12 Extended spectrum beta lactamase (ESBL) resistance; Q60.0 Renal agenesis, unilateral; J98.11 Atelectasis; Z68.1 Body mass index [BMI] 19.9 or less, adult; I13.0 Hypertensive heart and chronic kidney disease with heart failure and stage 1 through stage 4 chronic kidney disease, or unspecified chronic kidney disease; I96 Gangrene, not elsewhere classified; B96.4 Proteus (mirabilis) (morganii) as the cause of diseases classified elsewhere; L08.89 Other specified local infections of the skin and subcutaneous tissue; B96.20 Unspecified Escherichia coli [E. coli] as the cause of diseases classified elsewhere; I48.91 Unspecified atrial fibrillation; D50.0 Iron deficiency anemia secondary to blood loss (chronic); I12.9 Hypertensive chronic kidney disease with stage 1 through stage 4 chronic kidney disease, or unspecified chronic kidney disease; N18.3 Chronic kidney disease, stage 3 (moderate); E87.6 Hypokalemia; I73.9 Peripheral vascular disease, unspecified; I71.4 Abdominal aortic aneurysm, without rupture; Z86.73 Personal history of transient ischemic attack (TIA), and cerebral infarction without residual deficits
CPT/HCPCS: 36415; 36569; 71045; 74176; 76377; 76770; 80048; 80053; 80069; 80076; 80202; 81003; 81015; 82150; 82274; 82550; 82553; 82570; 82728; 82947; 83540; 83605; 83690; 83970; 84145; 84156; 84443; 84466; 84484; 85014; 85018; 85025; 85610; 85730; 86850; 86900; 86901; 87040; 87070; 87075; 87077; 87086; 87088; 87186; 87205; 88304; 93005; 94640; 94760; 96361; 96365; 96366; 96375; 99285; J0692; J2370; J2543; J2704; J3010; J7030; J7040

== ENCOUNTER 2020-02-19 13:44 | Emergency (ER) | payer OTHER ==
[2020-02-19] MEDS ORDERED: NA CHLORIDE 0.9% 2,000 ML ONE (14:14)
[2020-02-19 14:30] LABS: Absolute Lymphocytes (CBC) 0.9 K/uL (0.7-4.9); Basophils % 0.6 % (0-1.3); Lymphocytes % 9.4 % (15.3-44.8); MPV 9.8 fL (7.6-11.3)
--- NOTE | 2020-02-19 14:34 | RAD REPORT ---
EXAM DESCRIPTION: RAD - Chest Single View - 02/19/2020 2:29 pm CLINICAL HISTORY: CHEST PAIN Chest pain. COMPARISON: Chest Single View dated 01/09/2020; Chest Single View dated 01/07/2020; Chest Single View dated 01/05/2020; Chest Single View dated 11/18/2019 FINDINGS: Portable technique limits examination quality. Mild interstitial pulmonary edema suspected. The heart is mildly enlarged size. No displaced fracture s.A left PICC line is present however the tip of the catheter appears to be in the left arm.
[2020-02-19 14:39] LABS: Hematocrit 20.5 % (39.6-49.0)
[2020-02-19 14:41] LABS: Protime INR 1.28
[2020-02-19 14:52] LABS: Urine Bacteria <20 /HPF (NONE SEEN); Urine RBC 20-50 /HPF (NONE SEEN)
[2020-02-19 14:53] LABS: Urine Culture Reflex Order REFLEXED; Urine Mucus 1+ /HPF (NONE SEEN)
[2020-02-19 14:53] LABS: Urine Blood 2+ (NEG); Urine Glucose NEGATIVE (NEG); Urine Protein 2+ (NEG); Urine Specific Gravity 1.025 (1.005-1.030)
--- NOTE | 2020-02-19 15:04 | RAD REPORT ---
EXAM DESCRIPTION: US - Lower Extremity Arterial Bilat - 02/19/2020 2:51 pm CLINICAL HISTORY: necrosis;Pain Leg pain COMPARISON: No comparisons TECHNIQUE: Bilateral lower extremity arterial Doppler examination was performed with theresa fox FINDINGS: Examination was very limited by the patient's clinical status and difficulty with extensio n of the legs. The right common femoral artery, superficial femoral artery and popliteal artery are triphasic, howev er blunted. Right posterior tibial artery is quite diseased and monophasic. The right dorsalis pedis artery is occluded. The left common femoral artery is monophasic and significantly blunted. The left superficial femoral artery also significantly blunted and monophasic. Left popliteal artery could not be properly visuali zed. Left posterior tibial artery in the calf appears occluded. Left dorsalis pedis artery appears oc cluded. IMPRESSION: A severe bilateral pattern of peripheral vascular disease is noted, more severe on the l eft as detailed.
[2020-02-19] MEDS ORDERED: CEFEPIME/SWI 2gm 2 GM/20 ML SYR IVP ONE (15:45)
[2020-02-19 15:55] LABS: Albumin 2.1 g/dL (3.4-5.0); Bilirubin Direct 0.2 mg/dL (0-0.2); Bilirubin Total 0.5 mg/dL (0.2-1.0); C-Reactive Protein 95.7 mg/L (<3.00); Potassium 4.5 mmol/L (3.5-5.1); Protein, Total 8.4 g/dL (6.4-8.2); Troponin (Emerg Dept Use Only) 0.07 ng/mL (0.0-0.045)
--- NOTE | 2020-02-19 18:20 | EDPHYS ---
Physician Documentation [facility] Name: Derek Ybarra Age: 84 yrs Sex: Male : 1935 Arrival Date: 02/19/2020 Time: 13:40 Bed 2 Private MD: ED Physician Ty Garrett HPI: 02/18 15:52 This 84 yrs old Male presents to ER via EMS with complaints of Wound Infection.jr8 15:52 The complaints affect the left foot. Onset: The symptoms/episode began/occurred jr8 gradually, 2 week(s) ago. It is unknown whether or not the patient has had similar symptoms in the past. The patient has not recently seen a physician. EMS stated that family has been told that his left foot was not looking well. Started as small area about 2 weeks ago which has evolved and has become worse. Family had been debating on hospice vs getting it looked at. Today decided to have him transferred to ED for further evaluation . Historical: - Allergies: 13:55 NKDA; ph - PMHx: 13:55 Alzheimers; Atrial Fib; cognitive communication deficit; CVA; Dementia; hemiplegia; ph Hyperlipidemia; Hypertension; Seizures; UTI; - Immunization history:: Adult Immunizations unknown. - Social history:: Smoking status: unknown. ROS: 15:39 Unable to obtain ROS due to baseline dementia. jr8 Exam: 15:06 Eyes: Pupils equal round and reactive to light, extra-ocular motions intact. Lids and jr8 lashes normal. Conjunctiva and sclera are non-icteric and not injected. Cornea within normal limits. Periorbital areas with no swelling, redness, or edema. ENT: Nares patent. No nasal discharge, no septal abnormalities noted. Tympanic membranes are normal and external auditory canals are clear. Oropharynx with no redness, swelling, or masses, exudates, or evidence of obstruction, uvula midline. Mucous membranes moist. Neck: Trachea midline, no thyromegaly or masses palpated, and no cervical lymphadenopathy. Supple, full range of motion without nuchal rigidity, or vertebral point tenderness. No Meningismus. Cardiovascular: Irregularly irregular rate and rhythm with a normal S1 and S2. No gallops, murmurs, or rubs. Normal PMI, no JVD. No pulse deficits. Respiratory: Lungs have equal breath sounds bilaterally, clear to auscultation and percussion. No rales, rhonchi or wheezes noted. No increased work of breathing, no retractions or nasal flaring. Abdomen/GI: Soft, non-tender, with normal bowel sounds. No distension or tympany. No guarding or rebound. No evidence of tenderness throughout. Gastrostomy tube in place and without discharge or erythema MS/ Extremity: contracted legs with no movement bilaterally. Left foot blue and purple with necrotic toes. No palpable pulses bilaterally 15:06 Skin: pressure wounds that are wrapped noted to both legs. Another Stage 3 pressure ulcer found to perineal region that is bleeding. NO discharge or erythema . 15:06 Neuro: Orientation: to person, Mentation: able to follow commands, slow to respond, confused, Memory: unable to test, Cranial nerves: CN I not tested, CN II- XII are normal as tested, extraocular movements are intact, Cerebellar function: unable to test, Motor: unable to move lower extremities due to past medical problems. Equal movement and strength upper extremities , Gait: not tested. seizure activity, is not displayed by the patient, Abnormal movements: there are no abnormal movements. 18:35 ECG was reviewed by the Attending Physician. jr8 Vital Signs: 13:41 BP 97 / 45; Pulse 110; Resp 16; Temp 97.4; Pulse Ox 100% on R/A; ph 14:01 Weight 58.97 kg; em 14:57 BP 122 / 68; Pulse 103; Resp 16; Pulse Ox 98% on R/A; ph 15:32 BP 85 / 50; Pulse 104; Resp 18; Pulse Ox 99% on R/A; ph 16:40 BP 96 / 61; Pulse 108; Resp 16; Pulse Ox 98% on R/A; ph 18:00 BP 96 / 55; Pulse 97; Resp 16; Pulse Ox 100% on R/A; ph 18:45 BP 103 / 57; Pulse 108; Resp 16; Pulse Ox 100% on R/A; ph 15:32 pt lying on L side w/ BP cuff on R arm ph MDM: 13:43 Patient medically screened. 8 15:51 Data reviewed: vital signs, nurses notes, lab test result(s), EKG, radiologic studies, jr8 plain films, ultrasound. Data interpreted: Pulse oximetry: on room air is 99 %. Interpretation: normal. Counseling: I had a detailed discussion with the patient and/or guardian regarding: the historical points, exam findings, and any diagnostic results supporting the discharge/admit diagnosis, lab results, radiology results, the need for further work-up and treatment in the hospital. ED course: Discussed in detail with family patient condition and diagnosis. Agrees that patient will most likely not do well if we were to try to transfer for any invasive procedure. Wants him put on hospice. Hospice has been consulted and will take patient. Will d/c back to [place] once everything is singed . 18:14 ED course: Everything has been signed by hospice. Will d/c back to [place]. 02/18 13:45 Order name: C-Reactive Protein; Complete Time: 16:02 02/18 13:45 Order name: Sed Rate; Complete Time: 15:39 02/18 13:45 Order name: Basic Metabolic Panel; Complete Time: 16:02 02/18 13:45 Order name: Blood Culture Adult (2) 02/18 13:45 Order name: CBC with Diff; Complete Time: 15:39 02/18 13:45 Order name: CPK; Complete Time: 16:02 02/18 13:45 Order name: Lactate; Complete Time: 14:52 02/18 13:45 Order name: LFT's; Complete Time: 16:02 02/18 13:45 Order name: Lipase; Complete Time: 16:02 02/18 13:45 Order name: Procalcitonin; Complete Time: 14:52 02/18 13:45 Order name: Protime (+inr); Complete Time: 14:52 02/18 13:45 Order name: Ptt, Activated; Complete Time: 14:52 02/18 13:45 Order name: Troponin (emerg Dept Use Only); Complete Time: 16:02 02/18 13:45 Order name: Urine Microscopic Only; Complete Time: 14:54 02/18 13:45 Order name: Chest Single View XRAY; Complete Time: 14:52 02/18 13:45 Order name: Accucheck; Complete Time: 14:43 02/18 13:45 Order name: Cardiac monitoring; Complete Time: 14:43 02/18 13:45 Order name: EKG - Nurse/Tech; Complete Time: 15:18 jr8 02/18 13:45 Order name: IV Saline Lock - Large Bore; Complete Time: 14:43 jr8 02/18 13:45 Order name: Labs collected and sent; Complete Time: 14:43 jr8 02/18 13:45 Order name: O2 Per Protocol; Complete Time: 14:43 8 02/18 13:45 Order name: O2 Sat Monitoring; Complete Time: 14:43 8 02/18 13:45 Order name: US LE Arterial Bilateral; Complete Time: 15:39 jr8 02/18 14:40 Order name: Urine Dipstick--Ancillary (enter results); Complete Time: 14:54 em1 02/18 14:54 Order name: Urine Culture EDMS 02/18 15:03 Order name: [place]; Complete Time: 17:46 em1 02/18 15:07 Order name: Type And Screen ph 02/18 13:45 Order name: Urine Dipstick-Ancillary (obtain specimen); Complete Time: 14:39 jr8 EC:35 Rate is 108 beats/min. Rhythm is irregularly irregular, A fib. QRS [place] is Normal. QRS jr8 interval is normal at 94 msec. QT interval is prolonged at 509 msec. No Q waves. T waves are Inverted in leads V4, V5, V6. T waves are Flattened in leads II, III, aVF. No ST changes noted. Clinical impression: NSR w/ Non-specific ST/T Changes and Atrial Fibrillation. Interpreted by me. Reviewed by me. Administered Medications: 14:25 Drug: NS 0.9% (30 ml/kg) 30 ml/kg Route: IV; Rate: bolus; Site: left upper arm; ph 15:35 Drug: Cefepime 2 grams Route: IVPB; Rate: 200 ml/hr; Infused Over: 30 mins; Site: left upper arm; 18:58 Follow up: IV Status: Completed infusion ph Disposition: 02/19 11:33 Co-signature as Attending Physician, Ty Garrett MD I agree with the assessment and howard plan of care. Disposition: 02/19/20 18:19 Discharged to Home. Impression: Arterial embolism and thrombosis, Gangrene, not elsewhere classified - Gangrene of foot , Hypotension, Acute Anemia, Peripheral Artery Disease . - Condition is Fair. - Discharge Instructions: Gangrene, Hypotension. - Medication Reconciliation Form, Thank You Letter, Antibiotic Education, Prescription Opioid Use, SBAR form form. - Follow up: Private Physician; When: Tomorrow; Reason: Recheck today's complaints, Continuance of care, Re-evaluation by your physician. - Problem is new. - Symptoms are unchanged. Signatures: Dispatcher [employer] EDMS Ty Garrett MD MD cha Roszak, Josh, PA PA jr8 Taya Varghese RN RN Owen Cote RN RN rv Corrections: (The following items were deleted from the chart) 02/18 17:41 15:06 Eyes: Pupils equal round and reactive to light, extra-ocular motions intact. Lids jr8 and lashes normal. Conjunctiva and sclera are non-icteric and not injected. Cornea within normal limits. Periorbital areas with no swelling, redness, or edema. ENT: Nares patent. No nasal discharge, no septal abnormalities noted. Tympanic membranes are normal and external auditory canals are clear. Oropharynx with no redness, swelling, or masses, exudates, or evidence of obstruction, uvula midline. Mucous membranes moist. Neck: Trachea midline, no thyromegaly or masses palpated, and no cervical lymphadenopathy. Supple, full range of motion without nuchal rigidity, or vertebral point tenderness. No Meningismus. Cardiovascular: Regular rate and rhythm with a normal S1 and S2. No gallops, murmurs, or rubs. Normal PMI, no JVD. No pulse deficits. Respiratory: Lungs have equal breath sounds bilaterally, clear to auscultation and percussion. No rales, rhonchi or wheezes noted. No increased work of breathing, no retractions or nasal flaring. Abdomen/GI: Soft, non-tender, with normal bowel sounds. No distension or tympany. No guarding or rebound. No evidence of tenderness throughout. Gastrostomy tube in place and without discharge or erythema MS/ Extremity: contracted legs with hemiparesis. Left foot blue and purple with necrotic toes. No palpable pulses bilaterally jr8 17:41 15:06 Neuro: Orientation: to person, Mentation: able to follow commands, slow to jr8 respond, confused, Memory: unable to test, Cranial nerves: CN I not tested, CN II- XII are normal as tested, extraocular movements are intact, Cerebellar function: unable to test, Motor: hemiparesis present left side , Gait: not tested. seizure activity, is not displayed by the patient, Abnormal movements: there are no abnormal movements, melita 17:42 15:51 ED course: Discussed in detail with family patient condition and diagnosis. melita Agrees that patient will most likely not do well if were to try any invasive procedure. Wants him stabilized and put on hospice. Will admit to medicine for stabilization so they can put him on hospice . melita 18:18 15:51 ED course: Discussed in detail with family patient condition and diagnosis. melita Agrees that patient will most likely not do well if were to try any invasive procedure. Wants him stabilized and put on hospice. Hospice has been consulted and will take patient. Will d/c back to [place] once everything is singed . melita 18:21 18:19 02/19/2020 18:19 Discharged to Home. Impression: Arterial embolism and jr8 thrombosis; Gangrene, not elsewhere classified - Gangrene of foot ; Hypotension; Acute Anemia. Condition is Fair. Forms are Medication Reconciliation Form, Thank You Letter, Antibiotic Education, Prescription Opioid Use. Follow up: Private Physician; When: Tomorrow; Reason: Recheck today's complaints, Continuance of care, Re-evaluation by your physician. Problem is new. Symptoms are unchanged. melita 18:37 15:06 Eyes: Pupils equal round and reactive to light, extra-ocular motions intact. Lids jr8 and lashes normal. Conjunctiva and sclera are non-icteric and not injected. Cornea within normal limits. Periorbital areas with no swelling, redness, or edema. ENT: Nares patent. No nasal discharge, no septal abnormalities noted. Tympanic membranes are normal and external auditory canals are clear. Oropharynx with no redness, swelling, or masses, exudates, or evidence of obstruction, uvula midline. Mucous membranes moist. Neck: Trachea midline, no thyromegaly or masses palpated, and no cervical lymphadenopathy. Supple, full range of motion without nuchal rigidity, or vertebral point tenderness. No Meningismus. Cardiovascular: Regular rate and rhythm with a normal S1 and S2. No gallops, murmurs, or rubs. Normal PMI, no JVD. No pulse deficits. Respiratory: Lungs have equal breath sounds bilaterally, clear to auscultation and percussion. No rales, rhonchi or wheezes noted. No increased work of breathing, no retractions or nasal flaring. Abdomen/GI: Soft, non-tender, with normal bowel sounds. No distension or tympany. No guarding or rebound. No evidence of tenderness throughout. Gastrostomy tube in place and without discharge or erythema MS/ Extremity: contracted legs with no movement bilaterally. Left foot blue and purple with necrotic toes. No palpable pulses bilaterally jr8 20:02 18:21 02/19/2020 18:19 Discharged to Home. Impression: Arterial embolism and rv thrombosis; Gangrene, not elsewhere classified - Gangrene of foot ; Hypotension; Acute Anemia; Peripheral Artery Disease . Condition is Fair. Discharge Instructions: Gangrene, Hypotension. Forms are Medication Reconciliation Form, Thank You Letter, Antibiotic Education, Prescription Opioid Use. Follow up: Private Physician; When: Tomorrow; Reason: Recheck today's complaints, Continuance of care, Re-evaluation by your physician. Problem is new. Symptoms are unchanged. jr8
--- NOTE | 2020-02-19 18:20 | ER ---
Nurse's Notes [facility] Name: Derek Ybarra Age: 84 yrs Sex: Male : 1935 Arrival Date: 02/19/2020 Time: 13:40 Bed 2 Private MD: Diagnosis: Arterial embolism and thrombosis;Gangrene, not elsewhere classified-Gangrene of foot ;Hypotension;Acute Anemia;Peripheral Artery Disease Presentation: 02/18 13:41 Chief complaint: EMS states: Pt from [place], sent to have necrotic foot (L) ph evaluated, staff reports that it began as a small spot on the great toe and has now moved to entre foot, family was debating placing pt on hospice but instead decided to have wound treated, hx CVA and dementia, pt is bed bound, A\\T\\O to person only at baseline, BP low for EMS, 70s to 80s systolic. Coronavirus screen: Patient denies a cough. Patient denies shortness of breath or difficulty breathing. Patient denies measured and/or subjective temperature greater than 100.4F prior to today's visit. Patient denies travel on a cruise ship or to a country the [facility] currently lists as an affected area. Patient denies contact with known and/or suspected case of COVID-19. Ebola Screen: No symptoms or risks identified at this time. Initial Sepsis Screen: Does the patient meet any 2 criteria? Mean Arterial Pressure (MAP) < 65. HR > 90 bpm. Does the patient have a suspected source of infection? Yes: Skin breakdown/wound. Risk Assessment: Do you want to hurt yourself or someone else? Patient reports no desire to harm self or others. 13:41 Method Of Arrival: EMS: [facility] ph 13:41 Acuity: CAMPOS 2 ph 13:57 Onset of symptoms was February 19, 2020. ph Historical: - Allergies: 13:55 NKDA; ph - PMHx: 13:55 Alzheimers; Atrial Fib; cognitive communication deficit; CVA; Dementia; hemiplegia; ph Hyperlipidemia; Hypertension; Seizures; UTI; - Immunization history:: Adult Immunizations unknown. - Social history:: Smoking status: unknown. Screenin:47 Abuse screen: Denies threats or abuse. Denies injuries from another. Nutritional ph screening: No deficits noted. Tuberculosis screening: No symptoms or risk factors identified. Fall Risk No fall in past 12 months (0 pts). Secondary diagnosis (15 points) impaired mobility, IV access (20 points). Ambulatory Aid- None/Bed Rest/Nurse Assist (0 pts). Gait- Normal/Bed Rest/Wheelchair (0 pts) Mental Status- Overestimates/Forgets Limitations (15 pts.). Total Luciano Fall Scale indicates High Risk Score (45 or more points). Fall prevention measures have been instituted. Side Rails Up X 2 Placed Close to Nursing Station Frequent Obs/Assessments Occuring As available patient and family educated on Fall Prevention Program and Strategies. Assessment: 13:46 Reassessment: Code sepsis called over head. ph 14:45 General: Appears in no apparent distress. slender, Behavior is cooperative, drowsy, ph quiet. Pain: Unable to use pain scale. Patient is disoriented. Does not appear to understand pain scale. Neuro: Level of Consciousness is awake, obeys commands, Oriented to person. Cardiovascular: Capillary refill < 3 seconds in bilateral fingers Patient's skin is warm and dry. Respiratory: Airway is patent Respiratory effort is even, unlabored. GI: Abdomen is flat, non-distended, PEG tube in place, clamped. Site clean. : Saavedra in place to gravity drainage. Derm: Skin is fragile, is thin, Skin is pink, warm \\T\\ dry. L great toe noted to be blackened and necrotic in appearance, appears to be spreading to other toes and dorsum of foot, heel area also noted to be blackened and necrotic in appearance. Musculoskeletal: Range of motion: limited in all extremities, legs appear to be contracted, pt non ambulatory. 15:02 Reassessment: Patient appears in no apparent distress at this time. No changes from ph previously documented assessment. ERP at bedside for rectal exam, guaiac negative, however a stage 3 pressure sore that is actively bleeding noted to inner aspect of L buttocks near rectum, wound dressing also noted to R hip area, BP stabilized now that pt is positioned onto back, sepsis bolus d/c at this time, awaiting lab results. 16:51 Reassessment: Patient appears in no apparent distress at this time. Patient and/or ph family updated on plan of care and expected duration. Pain level reassessed. Pt more awake and alert, oriented to person, denies pain at this time. 18:12 Reassessment: Patient appears in no apparent distress at this time. Patient and/or ph family updated on plan of care and expected duration. Pain level reassessed. Waiting for hospice to be set up before pt is transferred back to [place]. 18:44 Reassessment: Patient appears in no apparent distress at this time. No changes from ph previously documented assessment. Report given to Kaitlynn at [place], she states that they do not have transport available at this time and that he will need to be transferred back via EMS, pt is bed bound. 18:55 Reassessment: Contacted by Kaitlynn from [place], states, " My DON chewed me out and said ph that we can't except the pt back until we get the clinicals on him." I asked if that was something that we provided or hospice, then stated, " I don't know but I will find out and let you know.". 19:34 Reassessment: Patient appears in no apparent distress at this time. David BHATT has been in sg contact with facility at this time and has verified that the patient is cleared to return to [place], pt transport in route at this time. Vital Signs: 13:41 BP 97 / 45; Pulse 110; Resp 16; Temp 97.4; Pulse Ox 100% on R/A; ph 14:01 Weight 58.97 kg; em 14:57 BP 122 / 68; Pulse 103; Resp 16; Pulse Ox 98% on R/A; ph 15:32 BP 85 / 50; Pulse 104; Resp 18; Pulse Ox 99% on R/A; ph 16:40 BP 96 / 61; Pulse 108; Resp 16; Pulse Ox 98% on R/A; ph 18:00 BP 96 / 55; Pulse 97; Resp 16; Pulse Ox 100% on R/A; ph 18:45 BP 103 / 57; Pulse 108; Resp 16; Pulse Ox 100% on R/A; ph 15:32 pt lying on L side w/ BP cuff on R arm ph ED Course: 13:40 Patient arrived in ED. ph 13:43 David Le PA is PHCP. jr8 13:43 Ty Garrett MD is Attending Physician. jr8 13:46 Triage completed. ph 13:47 Taya Varghese, DOLORES is Primary Nurse. ph 13:48 Patient has correct armband on for positive identification. Placed in gown. Bed in low ph position. Call light in reach. Side rails up X2. corn grinder on. Pulse ox on. NIBP on. Door closed. Noise minimized. Warm blanket given. 13:55 Arm band placed on Patient placed in an exam room. ph 14:29 Chest Single View XRAY In Process Unspecified. EDMS 14:48 No provider procedures requiring assistance completed. Accessed mid line to [place] Clean \\T\\ ph dry. Dressing intact. Good blood return. Flushes easily. Maintain EMS IV. Gauge \\T\\ site: 22 RFA. 14:51 US LE Arterial Bilateral In Process Unspecified. EDMS 16:25 Type And Screen Sent. kj1 20:02 IV discontinued, intact, bleeding controlled, No redness/swelling at site. Pressure rv dressing applied. Administered Medications: 14:25 Drug: NS 0.9% (30 ml/kg) 30 ml/kg Route: IV; Rate: bolus; Site: left upper arm; ph 15:35 Drug: Cefepime 2 grams Route: IVPB; Rate: 200 ml/hr; Infused Over: 30 mins; Site: left ph upper arm; 18:58 Follow up: IV Status: Completed infusion ph Outcome: 18:19 Discharge ordered by MD. hua 20:01 Discharged to half-way. Transfer form completed. Valuables list done. rv 20:01 Condition: stable 20:01 Discharge instructions given to EMS, Instructed on discharge instructions, follow up and referral plans. Demonstrated understanding of instructions, follow-up care. 20:02 Patient left the ED. rv Signatures: Dispatcher [employer] Ahmet Harrison, RN RN Jose Maria Walter, RN David Garcia PA PA jrTaya Stevens RN RN ph Vicente, Ronaldo RN Katrina Goodman kj1
[2020-02-19 20:20] VITALS: O2SAT 100
[2020-02-19 20:21] VITALS: BP 103/57
--- NOTE | 2020-02-20 09:50 | EKG ---
Test Date: 2020-02-19 Test Time: 14:47:48 Area Mechanic: RITU MEASUREMENT RESULTS: Intervals: Rate: 108 [place]: QRSD: 94 QT: 380 QTc: 509 [place]: P: [place]: QRS: 63 T: 7 INTERPRETIVE STATEMENTS: Atrial fibrillation with rapid ventricular response Septal infarct, age undetermined ST & T wave abnormality, consider lateral ischemia or digitalis effect Abnormal ECG Compared to ECG 01/05/2020 19:17:02 Myocardial infarct finding now present Possible ischemia now present ST (T wave) deviation still present Electronically Signed On 02-20-20 09:49:23 CDT by Cosme Ralph
== END 2020-02-19 20:02 | disposition home or self-care (01) ==
LOC: ER 13:44
DX: I96 Gangrene, not elsewhere classified (principal); I95.9 Hypotension, unspecified; D64.9 Anemia, unspecified; G30.9 Alzheimer's disease, unspecified; F02.80 Dementia in other diseases classified elsewhere, unspecified severity, without behavioral disturbance, psychotic disturbance, mood disturbance, and anxiety; I10 Essential (primary) hypertension; Z86.73 Personal history of transient ischemic attack (TIA), and cerebral infarction without residual deficits
CPT/HCPCS: 96365; 93005; 87040 ×2; 87088; 85025; 87086; 80048; 36415; 86900; 86850; 82550; 85610; 86901; 80076; 83605; 85730; 82272; 85652; 84484; 83690; 84145; 86140; 71045; 93925; 96375; 99285; 96366; J0692; J7030; 81003; 81015

== ENCOUNTER 2020-02-21 22:30 | Inpatient (IN) | payer OTHER ==
[2020-02-21 23:17] LABS: Absolute Lymphocytes (CBC) 0.5 K/uL (0.7-4.9); Basophils % 0.3 % (0-1.3); Hematocrit 29.5 % (39.6-49.0); Lymphocytes % 4.8 % (15.3-44.8); RBC Red Blood Cell Count 3.62 M/uL (4.33-5.43)
[2020-02-21] MEDS ORDERED: ACETAMINOPHEN 650MG/RECT SUPP PR ONE (23:18)
[2020-02-21] MEDS ORDERED: PIPER/TAZO/NS 3.375gm 3.375 GM/100 ML BAG ONE (23:18)
[2020-02-21] MEDS ORDERED: NA CHLORIDE 0.9% 2,000 ML ONE (23:18)
[2020-02-21] MEDS ORDERED: NA CHLORIDE 0.9% 250 ML ONE (23:23)
[2020-02-21] MEDS ORDERED: VANCOMYCIN 1 GM/VIAL ONE (23:23)
[2020-02-21 23:34] LABS: Urine Blood 2+ (NEG); Urine Glucose NEGATIVE (NEG); Urine Protein 2+ (NEG)
[2020-02-21] MEDS ORDERED: DIGOXIN 0.25 MG/ML AMP ONE (23:42)
[2020-02-21] MEDS ORDERED: METOPROLOL TARTRATE 5 MG/5 ML INJ IV ONE (23:42)
[2020-02-22 00:17] LABS: Urine Bacteria 20-50 /HPF (NONE SEEN); Urine Culture Reflex Order REFLEXED; Urine Mucus 1+ /HPF (NONE SEEN); Urine Yeast MANY (NONE SEEN)
[2020-02-22 00:18] LABS: Urine Yeast with Hyphae PRESENT
[2020-02-22 00:33] LABS: Blood Morphology Comment NOTED (NOT SEEN); Elliptocytes 1+; Hypochromasia 1+; Platelet Estimate ADEQ
[2020-02-22 01:39] LABS: Protime INR 1.43
[2020-02-22 02:10] LABS: Albumin 1.9 g/dL (3.4-5.0); Bilirubin Direct 0.4 mg/dL (0-0.2); Bilirubin Total 0.8 mg/dL (0.2-1.0); Magnesium 1.8 mg/dL (1.8-2.4); Potassium 4.7 mmol/L (3.5-5.1); Protein, Total 8.2 g/dL (6.4-8.2); Troponin (Emerg Dept Use Only) 0.18 ng/mL (0.0-0.045)
[2020-02-22 02:11] LABS: CKMB Creatine Kinase MB 14.3 ng/mL (0.3-3.6)
--- NOTE | 2020-02-22 02:15 | ER ---
Nurse's Notes [facility] Name: Derek Ybarra Age: 84 yrs Sex: Male : 1935 Arrival Date: 02/21/2020 Time: 22:31 Bed 7 Private MD: Diagnosis: Atrial fibrillation and flutter-RVR;Anemia, unspecified;Severe sepsis;Gangrene, not elsewhere classified-LEFT FOOT;Other peripheral vascular diseases-EXTENSIVE, LEFT GREATER THAN RIGHT;Unspecified kidney failure;Dementia in other diseases classified elsewhere;Pneumonia due to other specified bacteria-RIGHT UPPER LUNG;Urinary tract infection, site not specified;Hypoxemia Presentation: 02/20 22:45 Chief complaint: EMS states: " [place] called for the pt in respiratory distress. jd3 when we assessed the pt he was anywhere from 80%-90% and we was talking fine and not appearing to be to short of breath. he did have a 103 fever and the readings were not to accurate going form 80s to 90s. he is already on Isolation percussion because of a wound on his bottom and his foot.". Coronavirus screen: Patient denies a cough. Patient reports shortness of breath or difficulty breathing. Patient reports a measured and/or subjective temperature greater than 100.4F. Patient denies travel on a cruise ship or to a country the [facility] currently lists as an affected area. Patient denies contact with known and/or suspected case of COVID-19. Ebola Screen: Patient negative for fever greater than or equal to 101.5 degrees Fahrenheit, and additional compatible Ebola Virus Disease symptoms. Initial Sepsis Screen: Does the patient meet any 2 criteria? RR > 20 per min. Temp <36.0*C (96.8*F)) or > 38.3*C (100.9*F). HR > 90 bpm. Yes Does the patient have a suspected source of infection? Yes: Skin breakdown/wound If YES to both, name of provider notified: Ty Garrett MD Risk Assessment: Do you want to hurt yourself or someone else? Patient reports no desire to harm self or others. Onset of symptoms was February 21, 2020. 22:45 Method Of Arrival: EMS: [facility] jd3 22:45 Acuity: CAMPOS 2 jd3 Historical: - Allergies: 22:53 NKDA; jd3 - Home Meds: 22:53 acetaminophen-codeine 300-30 mg Oral tab 1 tab every 8 hours for Pain [Active]; jd3 apixaban 5 mg Oral 1 tab 2 times per day for Cerebrovascular disease [Active]; aspirin 81 mg Oral TbEC 1 tab once daily [Active]; loperamide 2 mg Oral tab for diarrhea [Active]; multivitamin Oral tab daily [Active]; Lipitor 10 mg Oral tab 1 tab nightly for Hypercholesterolemia [Active]; senna 8.6 mg Oral tab twice a day [Active]; Namenda 10 mg Oral tab 1 tab daily for Moderate to Severe Alzheimer's Type Dementia [Active]; Toprol XL 50 mg Oral Tb24 1 tab once daily [Active]; Vimpat 150 mg Oral tab 1 tab 2 times per day for Seizures [Active]; - PMHx: 22:53 Hyperlipidemia; hemiplegia; Dementia; CVA; cognitive communication deficit; Atrial Fib; jd3 Alzheimers; Hypertension; Seizures; UTI; - Immunization history:: Adult Immunizations unknown. - Social history:: Smoking status: unknown. - Family history:: not pertinent. Screenin:30 Abuse screen: Denies threats or abuse. Denies injuries from another. Nutritional ls4 screening: Difficulty chewing/swallowing? Yes. 22:30 Tuberculosis screening: No symptoms or risk factors identified. Patient has been NPO ls4 before screening. The patient is not alert, or is unable to follow commands. The patient does not exhibit slurred or garbled speech The patient is not exhibiting difficulty speaking. The patient does not exhibit difficulty understanding words. The patient is unable to swallow own secretions without drooling or the need for suction. The patient failed the bedside swallow screening. The patient will be kept NPO until cleared by Speech Therapy or Physician. Provider notified of bedside swallow screening results: Ty Garrett MD. Fall Risk None identified. Assessment: 22:32 General: Appears uncomfortable, ill, unkempt, cachectic, Behavior is cooperative, ls4 quiet. Pain: Denies pain. Neuro: Level of Consciousness is awake, lethargic, Oriented to person. Cardiovascular: Capillary refill < 3 seconds Clubbing of nail beds is absent Patient's skin is warm and dry. Rhythm is atrial fibrillation with rapid ventricular response. Respiratory: Airway is patent Respiratory effort is labored, shallow, Respiratory pattern is tachypnea Breath sounds are clear bilaterally. GI: Enteral feeding tube in place, clamped. Site clean. : Saavedra in place to gravity drainage. Derm: Decubitus located on left ILEUM approximately > 20 cm is unstageable. bed has eschar present is draining small amount serosanguinous. Musculoskeletal: Circulation, motion, and sensation intact. Capillary refill < 3 seconds, Range of motion: limited in all extremities, LEFT FOOT BLACK, NO PALPABLE PULSE. 23:30 Reassessment: Patient appears in no apparent distress at this time. Patient and/or ls4 family updated on plan of care and expected duration. Pain level reassessed. 02/21 01:56 Reassessment: Patient appears in no apparent distress at this time. Patient and/or ls4 family updated on plan of care and expected duration. Pain level reassessed. Patient is alert, oriented x 3, equal unlabored respirations, skin warm/dry/pink. PT SLEEPING, FUSSY WHEN AWAKENED FOR PROCEDURES. PT DENIES PAIN WHEN ASKED IN [place]. 03:28 Reassessment: Spoke with Mariann at [facility] about patient's orders for lp1 Hospice, states patient is on Hospice with [facility] and full code status in place. 04:00 Reassessment: Patient appears in no apparent distress at this time. daughter informed mg2 about the need for admission. 07:00 Reassessment: RECD REPORT FROM [facility]. PT ON ER HOLD, SEE [facility] FOR FURTHER bp DOCUMENTATION. 11:05 Reassessment: PT TBDC BY DR CASTREJON. NO ANSWER AT [facility] WHEN CALLED. bp 11:25 Reassessment: EMS EN ROUTE FOR TRANSPORT TO RETURN TO [place]. bp Vital Signs: 02/20 22:54 BP 130 / 68; Pulse 163; Resp 28 S; Temp 103.4(R); Pulse Ox 94% on Non-rebreather mask; jd3 Weight 77.11 kg (R); Height 5 ft. 6 in. (167.64 cm) (R); Pain 0/10; 23:30 BP 123 / 68; Pulse 126; Resp 24; Temp 99.7(O); Pulse Ox 98% on R/A; Pain 00/10; ls4 02/21 01:00 BP 122 / 85; Pulse 131; Resp 31; Pulse Ox 100% on 3 lpm NC; Pain 0/10; ls4 01:30 BP 123 / 68; Pulse 130; Resp 30; Temp 99.0(O); Pulse Ox 99% on 3 lpm NC; Pain 0/10; ls4 02:58 BP 112 / 54; Pulse 130; Resp 18; Pulse Ox 99% on 3 lpm NC; mg2 04:30 BP 92 / 58; Pulse 128; Resp 20; Pulse Ox 99% on 3 lpm NC; mg2 06:30 BP 96 / 32; Pulse 118; Resp 20; Temp 99; Pulse Ox 96% on 3 lpm NC; mg2 09:30 BP 122 / 52; Pulse 111; Resp 20; Pulse Ox 98% on R/A; rb1 02/20 22:54 Body Mass Index 27.44 (77.11 kg, 167.64 cm) jd3 ED Course: 02/20 22:31 Patient arrived in ED. ds1 22:37 Ty Garrett MD is Attending Physician. [facility] 22:52 Triage completed. jd3 22:54 Arm band placed on. jd3 23:30 Patient has correct armband on for positive identification. Bed in low position. Call ls4 light in reach. Side rails up X 1. pipe changer on. Pulse ox on. NIBP on. 23:30 Pillow given. Verbal reassurance given. Turned to left side. Diet: Patient is NPO. ls4 23:30 Urine Microscopic Only Sent. ds4 23:30 No provider procedures requiring assistance completed. ls4 23:45 Inserted saline lock: 18 gauge in left forearm, using aseptic technique. ls4 23:45 Initial lab(s) drawn, by id, sent to lab. ls4 02/21 00:20 Radha Xavier, RN is Primary Nurse. ls4 00:24 XRAY Chest (1 view) In Process Unspecified. EDMS 00:26 Urine Culture Sent. ls4 00:58 Inserted saline lock: 18 gauge in right forearm, using aseptic technique. Blood ls4 collected. Oxygen administration via nasal cannula \\T\\ 3L/min. 02:08 Oscar Krishnamurthy is Hospitalizing Provider. [facility] 07:10 Report given to Arlene RN. mg2 09:17 Patient admitted, IV remains in place. bp Administered Medications: 02/20 00:40 Drug: Digoxin 0.5 mg Route: IVP; Site: right antecubital; ls4 02/21 03:00 Follow up: Response: No adverse reaction [facility] 02/20 00:57 Drug: Lopressor 2.5 mg Route: IVP; Site: right forearm; ls4 02/21 02:59 Follow up: Response: No adverse reaction [facility] 02/20 23:15 Drug: NS 0.9% (30 ml/kg) 2300 ml Route: IV; Rate: bolus; Site: right forearm; ls4 02/21 09:37 Follow up: IV Status: Completed infusion; IV Intake: 2300ml bp 02/20 23:28 Not Given (Duplicate Order): Zosyn 3.375 grams IVPB once over 60 mins; (mix in NS 100 howard mL) 23:35 Drug: Tylenol Suppository 650 mg Route: AR; ls4 02/21 03:00 Follow up: Response: No adverse reaction [facility] 02/20 23:49 Drug: Meropenem 1 grams Route: IV; Rate: per protocol; Site: right forearm; ls4 02/21 03:00 Follow up: Response: No adverse reaction; IV Status: Completed infusion mg2 00:07 Drug: vancoMYCIN 1542 mg Route: IVPB; Site: left forearm; ls4 03:00 Follow up: Response: No adverse reaction; IV Status: Completed infusion mg2 00:07 Drug: Lopressor 2.5 mg Route: IVP; Site: right forearm; ls4 01:10 Follow up: Response: No adverse reaction; Marked relief of symptoms ls4 Intake: 09:37 IV: 2300ml; Total: 2300ml. bp Outcome: 02:15 Decision to Hospitalize by Provider. [facility] 11:26 Discharged to skilled nursing. Report called to [facility] bp 11:26 Condition: stable 11:26 Discharge instructions given to skilled nursing, Instructed on discharge instructions, Demonstrated understanding of instructions, follow-up care. 11:50 Patient left the ED. bp Signatures: Dispatcher [employer] EDMS Ty Garrett MD MD cha Sanford, Demi ds1 Stephanie Hebert RN RN lp1 Eric Swenson ds4 Ainsley Blackmon RN RN rb1 Grayson Marc RN RN jd3 Peltier, Brian, RN RN bp Mahesh Salgado RN RN mg2 Radha Xavier RN RN ls4 Corrections: (The following items were deleted from the chart) 11:27 11:26 Instructed on the need for admit, bp bp
--- NOTE | 2020-02-22 02:15 | EDPHYS ---
Physician Documentation [facility] Name: Derek Ybarra Age: 84 yrs Sex: Male : 1935 Arrival Date: 02/21/2020 Time: 22:31 Bed 7 Private MD: DALILA Physician Ty Garrett HPI: 02/20 22:55 This 84 yrs old Male presents to ER via EMS with complaints of General howard Weakness, sob and necrotic left foot. 22:55 The patient presents with decreased range of motion, an injury, pain, swelling, howard tenderness, gross necrosis. The complaints affect the left lateral ankle, lateral aspect of left foot, left Achilles, left heel, left medial ankle, medial aspect of left foot, anterior aspect of left ankle and dorsum of left foot. Context: The problem was sustained at an unknown site. Onset: The symptoms/episode began/occurred 1 week(s) ago. Modifying factors: The symptoms are alleviated by nothing. the symptoms are aggravated by movement. Associated signs and symptoms: Pertinent positives: calf tenderness, fever, swelling, warmth, weakness. fever, sob, necrotic foot. The patient presents with decreased range of motion, an injury, pain, swelling, tenderness, necrosis. The complaints affect the left foot, left lateral ankle, lateral aspect of left foot, left Achilles, left heel, left medial ankle, medial aspect of left foot, anterior aspect of left ankle and dorsum of left foot. Historical: - Allergies: 22:53 NKDA; jd3 - Home Meds: 22:53 acetaminophen-codeine 300-30 mg Oral tab 1 tab every 8 hours for Pain [Active]; jd3 apixaban 5 mg Oral 1 tab 2 times per day for Cerebrovascular disease [Active]; aspirin 81 mg Oral TbEC 1 tab once daily [Active]; loperamide 2 mg Oral tab for diarrhea [Active]; multivitamin Oral tab daily [Active]; Lipitor 10 mg Oral tab 1 tab nightly for Hypercholesterolemia [Active]; senna 8.6 mg Oral tab twice a day [Active]; Namenda 10 mg Oral tab 1 tab daily for Moderate to Severe Alzheimer's Type Dementia [Active]; Toprol XL 50 mg Oral Tb24 1 tab once daily [Active]; Vimpat 150 mg Oral tab 1 tab 2 times per day for Seizures [Active]; - PMHx: 22:53 Hyperlipidemia; hemiplegia; Dementia; CVA; cognitive communication deficit; Atrial Fib; jd3 Alzheimers; Hypertension; Seizures; UTI; - Immunization history:: Adult Immunizations unknown. - Social history:: Smoking status: unknown. - Family history:: not pertinent. ROS: 22:55 MS/extremity: Positive for erythema, pain, swelling, tenderness, warmth, gross necrosis.howard 22:55 Neuro: Positive for altered mental status. 22:55 Unable to obtain ROS due to baseline dementia, patient's speech is incomprehensible. Exam: 22:55 Head/Face: Normocephalic, atraumatic. Eyes: Pupils equal round and reactive to light, howard extra-ocular motions intact. Lids and lashes normal. Conjunctiva and sclera are non-icteric and not injected. Cornea within normal limits. Periorbital areas with no swelling, redness, or edema. ENT: Nares patent. No nasal discharge, no septal abnormalities noted. Tympanic membranes are normal and external auditory canals are clear. Oropharynx with no redness, swelling, or masses, exudates, or evidence of obstruction, uvula midline. Mucous membranes moist. Neck: Trachea midline, no thyromegaly or masses palpated, and no cervical lymphadenopathy. Supple, full range of motion without nuchal rigidity, or vertebral point tenderness. No Meningismus. Chest/axilla: Normal chest wall appearance and motion. Nontender with no deformity. No lesions are appreciated. Abdomen/GI: Soft, non-tender, with normal bowel sounds. No distension or tympany. No guarding or rebound. No evidence of tenderness throughout. Back: No spinal tenderness. No costovertebral tenderness. Full range of motion. Male : Normal genitalia with no discharge or lesions. 22:55 Cardiovascular: Rate: tachycardic, Rhythm: irregularly irregular, Pulses: Pulses are 2+ in right brachial artery, right femoral artery, right popliteal artery, left brachial artery, left carotid pulse and right carotid pulse. 22:55 Respiratory: mild respiratory distress is noted, Respirations: labored breathing, that is mild, Breath sounds: decreased breath sounds, that are moderate, rhonchi, Respiratory rate: 28 23:30 ECG was reviewed by the Attending Physician. [facility] Vital Signs: 22:54 BP 130 / 68; Pulse 163; Resp 28 S; Temp 103.4(R); Pulse Ox 94% on Non-rebreather mask; jd3 Weight 77.11 kg (R); Height 5 ft. 6 in. (167.64 cm) (R); Pain 0/10; 23:30 BP 123 / 68; Pulse 126; Resp 24; Temp 99.7(O); Pulse Ox 98% on R/A; Pain 00/10; ls4 05 01:00 BP 122 / 85; Pulse 131; Resp 31; Pulse Ox 100% on 3 lpm NC; Pain 0/10; ls4 01:30 BP 123 / 68; Pulse 130; Resp 30; Temp 99.0(O); Pulse Ox 99% on 3 lpm NC; Pain 0/10; ls4 02:58 BP 112 / 54; Pulse 130; Resp 18; Pulse Ox 99% on 3 lpm NC; mg2 04:30 BP 92 / 58; Pulse 128; Resp 20; Pulse Ox 99% on 3 lpm NC; mg2 06:30 BP 96 / 32; Pulse 118; Resp 20; Temp 99; Pulse Ox 96% on 3 lpm NC; mg2 09:30 BP 122 / 52; Pulse 111; Resp 20; Pulse Ox 98% on R/A; rb1 02/20 22:54 Body Mass Index 27.44 (77.11 kg, 167.64 cm) jd3 MDM: 02/20 22:37 Patient medically screened. [facility] 23:03 Differential diagnosis: cellulitis, bacterial infection, bronchitis, pneumonia UTI. howard Differential Diagnosis altered mental status, sepsis. Data reviewed: vital signs, nurses notes, EMS record, detention records, lab test result(s), EKG, radiologic studies, doppler, plain films. Data interpreted: manager of enterprise: rate is 163 beats/min, Pulse oximetry: on 100% oxygen by non-rebreather, is 94 %. Test interpretation: by ED physician or midlevel provider: ECG, plain radiologic studies. 02/20 22:54 Order name: Basic Metabolic Panel [facility] 02/20 22:54 Order name: CBC with Diff; Complete Time: 00:37 [facility] 02/20 22:54 Order name: LFT's [facility] 02/20 22:54 Order name: Magnesium [facility] 02/20 22:54 Order name: NT PRO-BNP [facility] 02/20 22:54 Order name: PT-INR; Complete Time: 02:07 [facility] 02/20 22:54 Order name: Troponin (emerg Dept Use Only) [facility] 02/20 22:54 Order name: Amylase, Serum [facility] 02/20 22:54 Order name: Blood Culture Adult (2) [facility] 02/20 22:54 Order name: Ckmb [facility] 02/20 22:54 Order name: CPK [facility] 02/20 22:54 Order name: Lactate; Complete Time: 00:37 [facility] 02/20 22:54 Order name: Lipase [facility] 02/20 22:54 Order name: Procalcitonin; Complete Time: 00:37 [facility] 02/20 22:54 Order name: XRAY Chest (1 view) [facility] 02/20 22:54 Order name: Ptt, Activated; Complete Time: 02:07 [facility] 02/20 22:54 Order name: Urine Microscopic Only; Complete Time: 00:37 [facility] 02/20 23:28 Order name: Flu; Complete Time: 02:07 [facility] 02/20 23:28 Order name: COVID-19 [facility] 02/20 23:28 Order name: Strep; Complete Time: 02:07 [facility] 02/20 23:32 Order name: Urine Dipstick--Ancillary (enter results); Complete Time: 00:37 ds4 02/21 00:20 Order name: Urine Culture [facility] 02/21 00:33 Order name: Manual Differential; Complete Time: 00:37 EDMT 02/21 01:06 Order name: Throat Culture [facility] 02/21 03:20 Order name: Lactate Sepsis 2 HR Follow-up [facility] 02/20 22:54 Order name: EKG; Complete Time: 22:55 [facility] 02/20 22:54 Order name: Cardiac monitoring; Complete Time: 00:26 [facility] 02/20 22:54 Order name: EKG - Nurse/Tech; Complete Time: 00:26 [facility] 02/20 22:54 Order name: IV Saline Lock; Complete Time: 00:26 [facility] 02/20 22:54 Order name: Labs collected and sent; Complete Time: 00:26 [facility] 02/20 22:54 Order name: O2 Per Protocol; Complete Time: 23:21 [facility] 02/20 22:54 Order name: O2 Sat Monitoring; Complete Time: 23:21 [facility] 02/20 22:54 Order name: Accucheck; Complete Time: 02:38 [facility] 02/20 22:54 Order name: IV Saline Lock - Large Bore; Complete Time: 02:38 howard 02/20 22:54 Order name: Urine Dipstick-Ancillary (obtain specimen); Complete Time: 23:30 howard 02/20 22:54 Order name: IV Saline Lock - Large Bore; Complete Time: 00:26 howard EC:30 Rate is 181 beats/min. Rhythm is irregularly irregular. QRS Topaz is Normal. OR interval howard is normal. QRS interval is normal. QT interval is normal. No Q waves. T waves are Normal. No ST changes noted. Clinical impression: Atrial Fibrillation. Interpreted by me. Reviewed by me. Administered Medications: 00:40 Drug: Digoxin 0.5 mg Route: IVP; Site: right antecubital; 4 02/21 03:00 Follow up: Response: No adverse reaction [facility] [place] 02/20 00:57 Drug: Lopressor 2.5 mg Route: IVP; Site: right forearm; ls4 02/21 02:59 Follow up: Response: No adverse reaction [facility] [place] 02/20 23:15 Drug: NS 0.9% (30 ml/kg) 2300 ml Route: IV; Rate: bolus; Site: right forearm; ls4 02/21 09:37 Follow up: IV Status: Completed infusion; IV Intake: 2300ml bp 02/20 23:28 Not Given (Duplicate Order): Zosyn 3.375 grams IVPB once over 60 mins; (mix in NS 100 howard mL) 23:35 Drug: Tylenol Suppository 650 mg Route: OR; ls4 02/21 03:00 Follow up: Response: No adverse reaction mg2 02/20 23:49 Drug: Meropenem 1 grams Route: IV; Rate: per protocol; Site: right forearm; ls4 02/21 03:00 Follow up: Response: No adverse reaction; IV Status: Completed infusion mg2 00:07 Drug: vancoMYCIN 1542 mg Route: IVPB; Site: left forearm; ls4 03:00 Follow up: Response: No adverse reaction; IV Status: Completed infusion mg2 00:07 Drug: Lopressor 2.5 mg Route: IVP; Site: right forearm; ls4 01:10 Follow up: Response: No adverse reaction; Marked relief of symptoms ls4 Disposition: 02/22/20 02:15 Hospitalization ordered by Oscar Krishnamurthy for Inpatient Admission. Preliminary diagnosis are Atrial fibrillation and flutter - RVR, Anemia, unspecified, Severe sepsis, Gangrene, not elsewhere classified - LEFT FOOT, Other peripheral vascular diseases - EXTENSIVE, LEFT GREATER THAN RIGHT, Unspecified kidney failure, Dementia in other diseases classified elsewhere, Pneumonia due to other specified bacteria - RIGHT UPPER LUNG, Urinary tract infection, site not specified, Hypoxemia. - Bed requested for Telemetry/MedSurg (Inpatient). - Status is Inpatient Admission. bp - Condition is Critical. - Problem is new. - Symptoms have improved. Signatures: Dispatcher [employer] EDMS Ty Garrett MD MD cha Garcia, Cindy, RN RN Grayson Handy RN RN jRuddy Wilkins RN RN bp Botello, Elizabeth eb Stewart, Lisa, RN RN ls4 Mahesh Salgado RN mg2 Corrections: (The following items were deleted from the chart) 16 02:15 Hospitalization Ordered by Oscar Krishnamurthy for Inpatient Admission. Preliminary howard diagnosis is Atrial fibrillation and flutter - RVR; Anemia, unspecified; Severe sepsis; Gangrene, not elsewhere classified - LEFT FOOT; Other peripheral vascular diseases - EXTENSIVE, LEFT GREATER THAN RIGHT; Unspecified kidney failure; Dementia in other diseases classified elsewhere. Bed requested for Telemetry/MedSurg (Inpatient). Status is Inpatient Admission. Condition is Critical. Problem is new. Symptoms have improved. [facility] 02:21 02:16 02/22/2020 02:15 Hospitalization Ordered by Oscar Krishnamurthy for Inpatient howard Admission. Preliminary diagnosis is Atrial fibrillation and flutter - RVR; Anemia, unspecified; Severe sepsis; Gangrene, not elsewhere classified - LEFT FOOT; Other peripheral vascular diseases - EXTENSIVE, LEFT GREATER THAN RIGHT; Unspecified kidney failure; Dementia in other diseases classified elsewhere; Pneumonia due to other specified bacteria - RIGHT UPPER LUNG. Bed requested for Intensive Care Unit. Status is Inpatient Admission. Condition is Critical. Problem is new. Symptoms have improved. howard 02:42 02:21 02/22/2020 02:15 Hospitalization Ordered by Oscar Krishnamurthy for Inpatient howard Admission. Preliminary diagnosis is Atrial fibrillation and flutter - RVR; Anemia, unspecified; Severe sepsis; Gangrene, not elsewhere classified - LEFT FOOT; Other peripheral vascular diseases - EXTENSIVE, LEFT GREATER THAN RIGHT; Unspecified kidney failure; Dementia in other diseases classified elsewhere; Pneumonia due to other specified bacteria - RIGHT UPPER LUNG; Urinary tract infection, site not specified. Bed requested for Intensive Care Unit. Status is Inpatient Admission. Condition is Critical. Problem is new. Symptoms have improved. howard 04:21 02:42 02/22/2020 02:15 Hospitalization Ordered by Oscar Krishnamurthy for Inpatient cg Admission. Preliminary diagnosis is Atrial fibrillation and flutter - RVR; Anemia, unspecified; Severe sepsis; Gangrene, not elsewhere classified - LEFT FOOT; Other peripheral vascular diseases - EXTENSIVE, LEFT GREATER THAN RIGHT; Unspecified kidney failure; Dementia in other diseases classified elsewhere; Pneumonia due to other specified bacteria - RIGHT UPPER LUNG; Urinary tract infection, site not specified; Hypoxemia. Bed requested for Telemetry/MedSurg (Inpatient). Status is Inpatient Admission. Condition is Critical. Problem is new. Symptoms have improved. [facility] 09:36 04:21 02/22/2020 02:15 Hospitalization Ordered by Oscar Krishnamurthy for Inpatient eb Admission. Preliminary diagnosis is Atrial fibrillation and flutter - RVR; Anemia, unspecified; Severe sepsis; Gangrene, not elsewhere classified - LEFT FOOT; Other peripheral vascular diseases - EXTENSIVE, LEFT GREATER THAN RIGHT; Unspecified kidney failure; Dementia in other diseases classified elsewhere; Pneumonia due to other specified bacteria - RIGHT UPPER LUNG; Urinary tract infection, site not specified; Hypoxemia. Bed requested for [facility] ER HOLD. Status is Inpatient Admission. Condition is Critical. Problem is new. Symptoms have improved. cg 11:50 09:36 02/22/2020 02:15 Hospitalization Ordered by Oscar Krishnamurthy for Inpatient bp Admission. Preliminary diagnosis is Atrial fibrillation and flutter - RVR; Anemia, unspecified; Severe sepsis; Gangrene, not elsewhere classified - LEFT FOOT; Other peripheral vascular diseases - EXTENSIVE, LEFT GREATER THAN RIGHT; Unspecified kidney failure; Dementia in other diseases classified elsewhere; Pneumonia due to other specified bacteria - RIGHT UPPER LUNG; Urinary tract infection, site not specified; Hypoxemia. Bed requested for Telemetry/MedSurg (Inpatient). Status is Inpatient Admission. Condition is Critical. Problem is new. Symptoms have improved. eb
--- NOTE | 2020-02-22 04:02 | P.HP ---
Certification for Inpatient Patient admitted to: Inpatient With expected LOS: >2 Midnights Practitioner: I am a practitioner with admitting privileges, knowledge of patient current condition, hospital course, and medical plan of care. Services: Services provided to patient in accordance with Admission requirements found in Title 42 Section 412.3 of the Code of Federal Regulations Patient History Date of Service: 02/22/20 Reason for admission: Hypoxia History of Present Illness: 84-year-old [facility] resident with a history of advanced dementia, history of CVA, dysphagia status post PEG, chronic atrial fibrillation, bed bound with sacral decubitus ulcer was transferred from the [facility] to the emergency department due to patient having respiratory distress. The patient was in the emergency department 3 days ago for gangrene of the left foot. Arterial Doppler studies of the foot revealed multiple major vessel occlusions. Patient was discharged from the emergency department to start hospice care at the [facility]. I am told that the hospice care has not been established yet. He developed respiratory distress was therefore transferred to the emergency d epartment. Chest x-ray done in emergency department suggest right middle lobe infiltrate. There is a report patient was hypoxic prior to transfer to the ED. He was initially saturating at 94% on 100% non-rebreather. Patient was tolerating oxygen by nasal cannula during my assessment in the ED. I met with the daughter who is the medical decision maker who stated family is interested in pursuing hospice. He is admitted for further management. Allergies No Known Drug Allergies Allergy (Verified 04/30/16 06:26) Unknown Home Medications: Atorvastatin Calcium [Lipitor*] 10 mg PO BEDTIME 04/26/16 Memantine HCl [Namenda] 10 mg PO DAILY #30 tablet 04/27/16 Lacosamide [Vimpat*] 150 mg PO BID 04/30/16 Aspirin 81 mg PO DAILY 11/13/19 Acetaminophen [Tylenol] 650 mg PO Q4HP PRN 01/05/20 Bisacodyl [Laxative Suppository] 10 mg RC DAILYPRN PRN 01/05/20 Codeine/APAP [Tylenol #3*] 1 tab PO Q8HP PRN 01/05/20 Magnesium Citrate [Citroma*] 300 ml PO DAILYPRN PRN 01/05/20 Metoprolol Tartrate [Lopressor*] 50 mg PO BID 01/05/20 Mirtazapine [Remeron*] 15 mg PO BEDTIME 01/05/20 Omeprazole 20 mg PO DAILY 01/05/20 Docusate [Colace Cap*] 100 mg PO BID #30 cap 01/09/20 Ensure Enlive 237 ml PO BID can 01/09/20 Meropenem [Merrem] 500 mg IV Q8HR #1 vial 01/09/20 Polyethyl Gly 3350 [Glycolax*] 17 gm PO DAILY #30 udbot 01/09/20 Tamsulosin [Flomax*] 0.4 mg PO DAILY #30 cap 01/09/20 Vancomycin/0.9 % Sod Chloride [Vanco 1.25 gm/250 ml-0.9% NaCl] 1.25 gm IV SEECOM #1 plast..bag 01/09/20 - Past Medical/Surgical History Diabetic: No -: Dementia -: Seizure disorder -: Hypertension -: Atrial fibrillation -: dysphagia -: CVA -: hyperlipidemia -: PVD -: R hip Bipolar arthroplasty - Family History Family History: Reviewed- Non-Contributory - Social History Alcohol use: No CD- Drugs: No Caffeine use: No Review of Systems is unable to be obtained (Due to dementia.) Physical Examination - Physical Exam General: In no apparent distress, Other (Awake) HEENT: PERRLA, Mucous membr. moist/pink, Sclerae nonicteric Neck: Supple, JVD not distended Respiratory: Normal air movement, Crackles/rales (Bilateral) Cardiovascular: No edema, Normal S1 S2, Irregular heart rate/rhythm Gastrointestinal: Normal bowel sounds, Soft and benign, Non-distended, Other (PEG) Musculoskeletal: Other (Left foot gangrene) Integumentary: Other (Left foot gangrene.) Neurological: Normal speech, Other (He moves all extremities.) - Studies Laboratory Data (last 24 hrs) 02/22/20 01:19: PT 16.8 H, INR 1.43, APTT 31.6 02/22/20 01:19: Sodium 149 H, Potassium 4.7, BUN 37 H D, Creatinine 1.06, Glucose 73 L, Magnesium 1.8, Total Bilirubin 0.8, AST 113 H, ALT 63, Alkaline Phosphatase 285 H, Amylase 61, Lipase 108 02/21/20 23:04: WBC 10.2, Hgb 9.2 L D, Hct 29.5 L D, Plt Count 359 Microbiology Data (last 24 hrs): 02/21/20 23:48 Nasopharnyx Influenza Type A Antigen Screen - Final 02/21/20 23:48 Nasopharnyx Influenza Type B Antigen Screen - Final 02/21/20 23:48 Throat Group A Streptococcus Rapid Screen - Final Assessment and Plan - Problems (Diagnosis) (1) Gangrene of left foot Current Visit: Yes Status: Acute (2) Acute respiratory failure Current Visit: Yes Status: Acute (3) Acute diastolic heart failure Current Visit: Yes Status: Acute (4) Sacral decubitus ulcer, stage IV Current Visit: Yes Status: Acute (5) Anemia Current Visit: No Status: Acute Qualifiers: Anemia type: unspecified type Qualified Code(s): D64.9 - Anemia, unspecified (6) Hypernatremia Current Visit: No Status: Acute (7) Atrial fibrillation Onset Date: 04/26/16 Current Visit: No Status: Chronic Qualifiers: Atrial fibrillation type: longstanding persistent Qualified Code(s): I48.11 - Longstanding persistent atrial fibrillation (8) Seizure disorder Onset Date: 04/26/16 Current Visit: No Status: Chronic (9) Pneumonia Onset Date: 05/01/16 Current Visit: No Status: Resolved Qualifiers: Pneumonia type: due to unspecified organism Laterality: right Lung location: lower lobe of lung Qualified Code(s): J18.9 - Pneumonia, unspecified organism - Plan Admit to the medical floor. Social service consult for arrangement for hospice at SNF. Will start IV antibiotics in the interim. IV lasix for possible vascular congestion. Continue home medications. Pain management as needed. Supplemental oxygen. Bronchodilators. - Advance Directives Does patient have a Living Will: Yes Does patient have a Durable POA for Healthcare: No
[2020-02-22] MEDS ORDERED: PIPER/TAZO/NS 3.375gm 3.375 GM/100 ML BAG IVPB SCH (06:26)
[2020-02-22] MEDS ORDERED: VANCOMYCIN 1 GM in NA CHLORIDE 0.9% 250 ML IVPB SCH (06:26)
[2020-02-22] MEDS ORDERED: ACETAMINOPHEN 500 MG TAB PO PRN (06:26)
[2020-02-22] MEDS ORDERED: ONDANSETRON 4 MG/2 ML VIAL IV PRN (06:26)
[2020-02-22 06:31] VITALS: BMI 27.4
[2020-02-22] MEDS ORDERED: VANCOMYCIN 2 GM in NA CHLORIDE 0.9% 500 ML IVPB ONE (07:00)
[2020-02-22 08:29] VITALS: TEMP 98.4
[2020-02-22] MEDS ORDERED: FUROSEMIDE 40 MG/4 ML VIAL IV SCH (09:00)
[2020-02-22] MEDS ORDERED: FUROSEMIDE 40 MG/4 ML VIAL ONE (09:28)
--- NOTE | 2020-02-22 10:42 | P.DS ---
Admission Date: 02/22/20 Discharge Date: 02/22/20 Disposition: TRANSFER TO S[facility]IOR LIVING Discharge Condition: SERIOUS Reason for Admission: Hypoxia Brief History of Present Illness: Patient is 84 years of age terminally sick on hospice care was admitted with mild respiratory distress his multiple medical problems Hospital Course: Patient was admitted here to the emergency room patient is a necrotic for dec ubitus ulcers and a pneumonia patient is currently hemodynamically stable he does have a pneumonia on the x-ray mild hypernatremia the daughter I spoke to her Ms Pedraza on her mobile number at [phone] number obtained from [facility] came into the hospital and signed a DNR papers there is essentially nothing weak been be able to offer him in the hospital she was agreeable to be for him to be discharged back to the [facility] under hospice care resume all his hospice medication Vital Signs/Physical Exam: Temp Pulse Resp BP Pulse Ox 98.4 F 116 H 30 H 103/58 L 98 02/22/20 08:00 02/22/20 09:00 02/22/20 08:00 02/22/20 09:00 02/22/20 08:00 Laboratory Data at Discharge: WBC 10.2 K/uL (4.3-10.9) 02/21/20 23:04 Hgb 9.2 g/dL (13.6-17.9) L D 02/21/20 23:04 Hct 29.5 % (39.6-49.0) L D 02/21/20 23:04 Plt Count 359 K/uL (152-406) 02/21/20 23:04 PT 16.8 SECONDS (9.5-12.5) H 02/22/20 01:19 INR 1.43 02/22/20 01:19 APTT 31.6 SECONDS (24.3-36.9) 02/22/20 01:19 Sodium 149 mmol/L (136-145) H 02/22/20 01:19 Potassium 4.7 mmol/L (3.5-5.1) 02/22/20 01:19 BUN 37 mg/dL (7-18) H D 02/22/20 01:19 Creatinine 1.06 mg/dL (0.55-1.3) 02/22/20 01:19 Glucose 73 mg/dL (74-106) L 02/22/20 01:19 Magnesium 1.8 mg/dL (1.8-2.4) 02/22/20 01:19 Total Bilirubin 0.8 mg/dL (0.2-1.0) 02/22/20 01:19 AST 113 U/L (15-37) H 02/22/20 01:19 ALT 63 U/L (12-78) 02/22/20 01:19 Alkaline Phosphatase 285 U/L (45-117) H 02/22/20 01:19 Amylase 61 U/L (25-115) 02/22/20 01:19 Lipase 108 U/L (73-393) 02/22/20 01:19 Home Medications: Atorvastatin Calcium [Lipitor*] 10 mg PO BEDTIME 04/26/16 Memantine HCl [Namenda] 10 mg PO DAILY #30 tablet 04/27/16 Lacosamide [Vimpat*] 150 mg PO BID 04/30/16 Aspirin 81 mg PO DAILY 11/13/19 Acetaminophen [Tylenol] 650 mg PO Q4HP PRN 01/05/20 Bisacodyl [Laxative Suppository] 10 mg RC DAILYPRN PRN 01/05/20 Codeine/APAP [Tylenol #3*] 1 tab PO Q8HP PRN 01/05/20 Magnesium Citrate [Citroma*] 300 ml PO DAILYPRN PRN 01/05/20 Metoprolol Tartrate [Lopressor*] 50 mg PO BID 01/05/20 Mirtazapine [Remeron*] 15 mg PO BEDTIME 01/05/20 Omeprazole 20 mg PO DAILY 01/05/20 Docusate [Colace Cap*] 100 mg PO BID #30 cap 01/09/20 Ensure Enlive 237 ml PO BID can 01/09/20 Meropenem [Merrem*] 500 mg IV Q8HR #1 vial 01/09/20 Polyethyl Gly 3350 [Glycolax*] 17 gm PO DAILY #30 udbot 01/09/20 Tamsulosin [Flomax*] 0.4 mg PO DAILY #30 cap 01/09/20 Vancomycin/0.9 % Sod Chloride [Vanco 1.25 gm/250 ml-0.9% NaCl] 1.25 gm IV SEECOM #1 plast..bag 03/20/20 Diet: pt has PEG tube Activity: Bedrest
--- NOTE | 2020-02-22 11:53 | RAD REPORT ---
EXAM DESCRIPTION: RAD - Chest Single View - 02/22/2020 12:24 am CLINICAL HISTORY: COUGH Chest pain. COMPARISON: Chest Single View dated 02/19/2020; Chest Single View dated 01/09/2020; Chest Single View dated 01/07/2020; Chest Single View dated 01/05/2020 FINDINGS: Portable technique limits examination quality. Large area of airspace consolidation is seen in the right upper lobe and right lower lobe inferior to the right hilum, suspicious for pneumonia. The left lung appears emphysematous. The heart is moderat leo enlarged in size. The bones are diffusely osteopenic. IMPRESSION: Prominent right-sided pneumonia.
[2020-02-22 12:13] VITALS: BP 122/52; O2SAT 98
[2020-02-23] MEDS ORDERED: VANCOMYCIN 1.25 GM in NA CHLORIDE 0.9% 250 ML IVPB SCH (07:00)
--- NOTE | 2020-02-23 10:53 | EKG ---
Test Date: 2020-02-21 Test Time: 23:15:20 Security Shift Supervisor: ANNABELLE MEASUREMENT RESULTS: Intervals: Rate: 167 [place]: QRSD: 84 QT: 278 QTc: 463 [place]: P: [place]: QRS: -60 T: 90 INTERPRETIVE STATEMENTS: Atrial fibrillation with rapid ventricular response with premature ventricular or aberrantly conducted complexes Left axis deviation Anterior infarct, age undetermined Abnormal ECG Compared to ECG 02/19/2020 14:47:48 Ventricular premature complex(es) now present Left-axis deviation now present ST (T wave) deviation no longer present Possible ischemia no longer present Myocardial infarct finding still present Electronically Signed On 02-23-20 10:49:24 CDT by Cosme Ralph
--- NOTE | 2020-02-23 10:53 | EKG ---
Test Date: 2020-02-21 Test Time: 23:17:29 Cmm Programmer: MISSYT MEASUREMENT RESULTS: Intervals: Rate: 181 [place]: QRSD: 84 QT: 240 QTc: 416 [place]: P: [place]: QRS: -59 T: 92 INTERPRETIVE STATEMENTS: Atrial fibrillation with rapid ventricular response Left axis deviation Nonspecific ST and T wave abnormality, probably digitalis effect Abnormal ECG Compared to ECG 02/21/2020 23:15:20 ST (T wave) deviation now present Ventricular premature complex(es) no longer present Myocardial infarct finding no longer present Electronically Signed On 02-23-20 10:49:23 CDT by Cosme Ralph
== END 2020-02-22 11:50 | DRG 193 ==
LOC: ER 22:30 → ERHOLD 02-22 04:17 → OBSVTOIN 02-22 04:17 → INTOOBSV 02-22 04:17
PROVIDERS: ADMIT Internal Medicine; ATTEND Internal Medicine Sleep Medicine
DX: J18.9 Pneumonia, unspecified organism (principal); L89.154 Pressure ulcer of sacral region, stage 4; I50.31 Acute diastolic (congestive) heart failure; J96.01 Acute respiratory failure with hypoxia; E87.0 Hyperosmolality and hypernatremia; I48.11 Longstanding persistent atrial fibrillation; I96 Gangrene, not elsewhere classified; E78.5 Hyperlipidemia, unspecified; I11.0 Hypertensive heart disease with heart failure; D64.9 Anemia, unspecified; Z66 Do not resuscitate; Z79.82 Long term (current) use of aspirin; Z79.899 Other long term (current) drug therapy; Z93.1 Gastrostomy status; Z20.828 Contact with and (suspected) exposure to other viral communicable diseases; Z86.73 Personal history of transient ischemic attack (TIA), and cerebral infarction without residual deficits; Z74.01 Bed confinement status; Z79.891 Long term (current) use of opiate analgesic
CPT/HCPCS: 36415; 71045; 80048; 80076; 81003; 81015; 82150; 82550; 82553; 83605; 83690; 83735; 83880; 84145; 84484; 85025; 85610; 85730; 87040; 87070; 87081; 87086; 87088; 87205; 87804; 93005; 99285; G0378; J1160; J1940; J2543; J7030; J7040; U0002